=== PATIENT | female | born 1960 | race Caucasian/White ===

== ENCOUNTER → 2017-11-11 09:34 | Outpatient (CLI) | payer BC, SELFPAY ==
--- NOTE | 2017-11-11 09:42 | XR_ITS ---
XR shoulder LT min 2V HISTORY: ITS.REASON: CHRONIC LT SHOULDER PAIN ORDERING PHYSICIAN: Mar Ochoa PATIENT AGE: 57 years Comparison: None FINDINGS: No fracture or dislocation. No lytic or blastic change. There is normal mineralization. The joint spaces are well-preserved. No significant degenerative/arthritic changes. No erosive changes evident. IMPRESSION: Negative, no acute finding
== END ==
PROVIDERS: PCP Nurse Practitioner; Visit Provider Nurse Practitioner
DX: G89.29 Other chronic pain (principal); M25.512 Pain in left shoulder
CPT/HCPCS: 73030

== ENCOUNTER → 2020-07-09 13:31 | Outpatient (CLI) | payer BC, SELFPAY ==
[2020-07-10 09:57] LABS: Covid-19 Nasal PCR Sendout P&C NEGATIVE
== END ==
PROVIDERS: PCP Nurse Practitioner; Visit Provider Nurse Practitioner
DX: Z20.822 Contact with and (suspected) exposure to COVID-19 (principal)
CPT/HCPCS: U0004

== ENCOUNTER 2020-11-26 12:37 | Emergency (ER) | payer BC, SELFPAY ==
[2020-11-26 12:41] VITALS: BP 153/89; PULSE 94; RESP 18; TEMP 36.8; O2SAT 98; BMI 20.5
--- NOTE | 2020-11-26 13:07 | HMH.EDUTC ---
[facility] [place] Disposition Clinical Impression: Tick bite Qualifiers: Encounter type: initial encounter Qualified Code(s): W57.XXXA - Bitten or stung by nonvenomous insect and other nonvenomous arthropods, initial encounter Disposition: Home, Self-Care Condition on Discharge: Good Instructions: How to Remove a Tick, Protect Yourself from Tickborne Illnesses, Doxycycline Additional Instructions: Take medication as prescribed Follow up with your Family Doctor for monitoring and further evaluation Return if needed Straight to ER if any life threatening symptoms Prescriptions: Doxycycline Hyclate [Doxycycline 100mg Capsule] 100 mg PO Q12 14 Days #28 cap Transmission Status: Pending to [facility] Referrals: Ramesh Warren MD [Primary Care Provider] - As needed Time of Disposition: 13:18 Medical Decision Making - Chris Inquiry Pt receiving controlled substance: No Chris was queried for this patient: No Vital Signs: 11/26/20 12:41 Temperature 98.2 F Temperature Source Oral Pulse Rate [Right] 94 H Respiratory Rate 18 Blood Pressure [Right Arm] 153/89 H Blood Pressure Mean [Right Arm] 110 Blood Pressure Source [Right Arm] Automatic Cuff Blood Pressure Position [Right Arm] Sitting 02 Sat by Pulse Oximetry 98 Oxygen Delivery Method Room Air [facility] [place] HPI - General Stated complaint: tick bite,redness on head Time Seen by Provider: 11/26/20 13:07 Mode of Arrival: Ambulatory Source of Information: Patient Limitations: No Limitations Description of Symptoms (Recalled from Triage Doc. by RN): pt was bit by a tick on the back of her head. she is now c/o pain and swollen lymph nodes in the back of her head since thursday. HEENT Symptoms (Recalled from RN notes): No Resp Symptoms (Recalled from RN notes): No Skin Symptoms (Recalled from RN notes): Yes (tick bite on the back of her head.) MS Symptoms (Recalled from RN notes): No Functional Status (Recalled from RN notes): na - History of Present Illness Provider Complaint: Patient state that she was bitten by a tick and they removed it around State that she noticed she was having some swelling to the bite area and her lymph nodes started swelling State that they looked at her head this morning and looked like she had a rash around the bite and still having lymph node swelling so she came in to get it checked - Related Data Home Medications Medication Instructions Recorded Confirmed Atorvastatin Calcium [Atorvastatin 40 mg PO HS 01/16/18 01/16/18 40mg Tab] Lansoprazole 30 mg PO DAILY 01/16/18 01/16/18 fluorouraciL [Efudex 5% cream 40gm 40 gm TP DAILY 01/16/18 01/16/18 tube] Previous Rx's Medication Instructions Recorded Gentamicin Sulfate [Garamycin 0.3% 1 - 2 drops EYE-LEFT Q4H #1 drops 01/16/18 opth kym 5mL] Doxycycline Hyclate [Doxycycline 100 mg PO Q12 14 Days #28 cap 11/26/20 100mg Capsule] Allergies Allergy/AdvReac Type Severity Reaction Status Date / Time Sulfa (Sulfonamide Allergy Verified 11/26/20 12:59 Antibiotics) - Worker's Comp Is this a Worker's Comp case?: No [facility] History - Hepatitis A Screen Drug use history?: No High risk sexual behaviors?: No History of sexually transmitted infection?: No Currently employed?: No Childcare worker?: No Do you have indoor plumbing?: Yes Do you have electricity?: Yes Attestation statement:: This patient has been screened for Hepatitis A risk factors. I have reviewed the patient's past medical history: Yes - Social History Alcohol Intake: never ROS Obtained: Yes All systems reviewed & no additional complaints, Yes Systems reviewed as appropriate & no additional complaints - Constitutional Constitutional: Reports system reviewed and no additional complaints, except as docu, Denies chills, Denies fever(s) - Cardiovascular Cardiovascular: Reports system reviewed and no additional complaints, except as docu - Respiratory Respiratory: Reports system reviewed
[2020-11-26 13:26] VITALS: BP 153/89; PULSE 94; RESP 16; TEMP 36.8
== END 2020-11-26 13:28 | disposition home or self-care (01) ==
PROVIDERS: Emergency Provider Nurse Practitioner; PCP Family Medicine
DX: S00.06XA Insect bite (nonvenomous) of scalp, initial encounter (principal); W57.XXXA Bitten or stung by nonvenomous insect and other nonvenomous arthropods, initial encounter; Y92.019 Unspecified place in single-family (private) house as the place of occurrence of the external cause
CPT/HCPCS: 99202; G0463

== ENCOUNTER → 2020-11-28 10:04 | Outpatient (CLI) | payer BC, SELFPAY ==
[2020-11-28 10:32] LABS: Basophils # 0.1 K/mm3 (0-0.2); Eosinophils # 0.2 K/mm3 (0.0-0.4); Eosinophils % 3.2 % (0.1-12.0); Hematocrit 40.2 % (37.0-47.0); Hemoglobin 13.4 g/dL (12.2-16.2); Lymphocytes # 2.4 K/mm3 (0.7-4.5); Lymphocytes % 41.3 % (10-50); Mean Corpuscular HGB Conc 33.2 g/dL (31.8-35.4); Mean Corpuscular Hemoglobin 29.5 pg (27.0-31.2); Mean Corpuscular Volume 88.9 fl (81-99); Mean Platelet Volume 7.5 fl (7.4-10.4); Monocytes # 0.3 K/mm3 (0.1-1.0); Monocytes % 5.5 % (1.7-9.3); Neutrophils # 2.9 K/mm3 (1.8-7.8); Neutrophils % 48.9 % (37.0-80.0); Platelet Count 293 K/mm3 (142-424); Red Blood Count 4.52 M/mm3 (4.20-5.40); Red Cell Distribution Width 12.7 % (11.5-17.5); White Blood Count 5.9 K/mm3 (4.8-10.8)
[2020-11-28 11:17] LABS: Chol/HDL Ratio 2.5 (1-3.5); Cholesterol 268 mg/dl (140-200); HDL Cholesterol 108 mg/dl (40-60); Triglycerides 122 mg/dl (30-150); VLDL Cholesterol 24 mg/dL (0-40)
[2020-11-28 11:28] LABS: Direct LDL Cholesterol 111.14 mg/dL (100-129)
== END ==
PROVIDERS: Visit Provider Nurse Practitioner Family
DX: E78.2 Mixed hyperlipidemia (principal); S00.06XD Insect bite (nonvenomous) of scalp, subsequent encounter; W57.XXXD Bitten or stung by nonvenomous insect and other nonvenomous arthropods, subsequent encounter
CPT/HCPCS: 36415; 80061; 85025; 86618

== ENCOUNTER → 2021-06-07 10:25 | Outpatient (CLI) | payer OTHER, SELFPAY | PROVIDERS: PCP Nurse Practitioner Family; Visit Provider Nurse Practitioner | DX: Z20.822 Contact with and (suspected) exposure to COVID-19 (principal) | CPT/HCPCS: C9803; U0003; U0005 ==

== ENCOUNTER → 2021-07-19 10:03 | Outpatient (CLI) | payer BC, SELFPAY ==
[2021-07-20 15:16] LABS: Covid-19 Nasal PCR Sendout Lex POSITIVE
== END ==
PROVIDERS: Visit Provider Nurse Practitioner
DX: U07.1 COVID-19 (principal)
CPT/HCPCS: C9803; U0004; U0005

== ENCOUNTER → 2021-08-19 11:47 | Outpatient (CLI) | payer BC, SELFPAY ==
--- NOTE | 2021-08-19 11:54 | XR_ITS ---
FINAL REPORT CLINICAL HISTORY: CERVICALGIA; chronic neck pain FINDINGS: CERVICAL SPINE Five views were obtained. There is no acute fracture. There is no acute malalignment. There are mild degenerative changes at C5-6 and C6-7. There is mild leftward curvature. There is mild right C3-4 neural foraminal narrowing. There is no soft tissue abnormality. IMPRESSION: No acute bony abnormality. Degenerative changes as above. Reviewed, Interpreted and Dictated by Armaan Villa III, MD Transcribed by JESICA Mauro Authenticated by Armaan Villa III, MD on 08/19/2021 01:13:21 PM [facility]
== END ==
PROVIDERS: PCP Nurse Practitioner Family; Visit Provider Nurse Practitioner Family
DX: M54.2 Cervicalgia (principal)
CPT/HCPCS: 72050

== ENCOUNTER → 2021-11-27 09:36 | Outpatient (CLI) | payer BC, SELFPAY ==
[2021-11-27 10:20] LABS: Basophils # 0.1 K/mm3 (0-0.2); Basophils % 1.8 % (0.1-2.0); Eosinophils # 0.1 K/mm3 (0.0-0.4); Eosinophils % 1.8 % (0.1-12.0); Hematocrit 39.6 % (37.0-47.0); Hemoglobin 13.3 g/dL (12.2-16.2); Lymphocytes # 2.1 K/mm3 (0.7-4.5); Lymphocytes % 36.9 % (10-50); Mean Corpuscular HGB Conc 33.5 g/dL (31.8-35.4); Mean Corpuscular Hemoglobin 30.8 pg (27.0-31.2); Mean Platelet Volume 8.3 fl (7.4-10.4); Monocytes # 0.4 K/mm3 (0.1-1.0); Monocytes % 6.9 % (1.7-9.3); Neutrophils % 52.6 % (37.0-80.0); Platelet Count 265 K/mm3 (142-424); White Blood Count 5.8 K/mm3 (4.8-10.8)
[2021-11-27 10:21] LABS: Chloride 101 mmol/L (98-107); Potassium 4.7 mmoL/L (3.5-5.1); Sodium 137 mmol/L (136-145)
[2021-11-27 10:23] LABS: Alanine Aminotransferase 17 U/L (12-78); Aspartate Amino Transferase 29 U/L (14-36); Blood Urea Nitrogen 12 mg/dl (7-17); Estimated Glomerular Filt Rate 63 ml/min (>60); GFR (African American) 77 ML/MIN (>60)
[2021-11-27 10:24] LABS: Albumin Level 4.4 g/dl (3.5-5.0); Albumin/Globulin Ratio 1.8 (1.1-1.8); Alkaline Phosphatase 87 U/L (38-126); Anion Gap 9.7 mEq/L (5-15); Bilirubin,Total 0.3 mg/dl (0.2-1.3); Calcium 9.9 mg/dl (8.4-10.2); Carbon Dioxide 31 mmol/L (22.0-30.0); Globulin 2.5 g/dL (1.3-3.2); Glucose 110 mg/dl (74-100); Total Protein,Serum 6.9 g/dl (6.3-8.2)
[2021-11-27 10:29] LABS: C-Reactive Protein 0.9 mg/L (0-4)
== END ==
PROVIDERS: PCP Nurse Practitioner Family; Visit Provider Colon & Rectal Surgery
DX: R19.7 Diarrhea, unspecified (principal)
CPT/HCPCS: 36415; 80053; 85025; 86140

== ENCOUNTER → 2022-08-07 08:58 | Outpatient (CLI) | payer BC, SELFPAY ==
--- NOTE | 2022-08-07 09:04 | XR_ITS ---
FINAL REPORT CLINICAL HISTORY: PAIN IN THORACIC SPINE FINDINGS: AP, lateral, and swimmer's views of the thoracic spine were obtained. There is no prior exam for comparison. There is no acute fracture or malalignment. There is multilevel degenerative disc disease most pronounced in the midthoracic spine. Paraspinal soft tissues are within normal limits. IMPRESSION: Degenerative disease with no acute osseous abnormality of the thoracic spine. Reviewed, Interpreted and Dictated by Camila Wesley MD Transcribed by Ayanna Carson Authenticated and [facility]
== END ==
PROVIDERS: PCP Nurse Practitioner Family; Visit Provider Nurse Practitioner Family
DX: M54.6 Pain in thoracic spine (principal)
CPT/HCPCS: 72072

== ENCOUNTER 2022-09-12 09:00 | Outpatient (RCR) | payer BC, SELFPAY | END 2022-09-12 09:05 | disposition home or self-care (01) | LOC: PT 09:00 | PROVIDERS: PCP Nurse Practitioner Family; Visit Provider Nurse Practitioner Family | DX: M54.2 Cervicalgia (principal); M54.6 Pain in thoracic spine | CPT/HCPCS: 97010; 97012; 97014; 97110; 97112; 97140; 97163; 97164; 97530; G0283 ==

== ENCOUNTER 2023-07-22 15:27 | Outpatient (CLI) | payer BC, SELFPAY ==
[2023-07-22 15:31] LABS: Alanine Aminotransferase 22 U/L (12-78); Albumin Level 4.7 g/dl (3.5-5.0); Alkaline Phosphatase 79 U/L (38-126); Anion Gap 11.4 mEq/L (5-15); Aspartate Amino Transferase 31 U/L (14-36); Bilirubin,Total 0.4 mg/dl (0.2-1.3); Blood Urea Nitrogen 12 mg/dl (7-17); Carbon Dioxide 29 mmol/L (22.0-30.0); Chloride 99 mmol/L (98-107); Chol/HDL Ratio 2.4 (1-3.5); Cholesterol 238 mg/dl (140-200); Estimated Glomerular Filt Rate 63 ml/min (>60); GFR (African American) 77 ML/MIN (>60); Globulin 2.3 g/dL (1.3-3.2); Glucose 71 mg/dl (74-100); HDL Cholesterol 98 mg/dl (40-60); Potassium 5.4 mmoL/L (3.5-5.1); Sodium 134 mmol/L (136-145); Triglycerides 93 mg/dl (30-150); VLDL Cholesterol 19 mg/dL (0-40)
[2023-07-22 15:42] LABS: Direct LDL Cholesterol 98.22 mg/dL (100-129)
== END 2023-07-22 23:59 ==
LOC: LAB.DROPOF 15:27
PROVIDERS: PCP Nurse Practitioner Family; Visit Provider Nurse Practitioner Family
DX: E78.5 Hyperlipidemia, unspecified (principal)
CPT/HCPCS: 80053; 80061

== ENCOUNTER 2023-09-09 15:14 | Emergency (ER) | payer BC, SELFPAY ==
[2023-09-09 15:45] VITALS: BP 121/64; PULSE 80; RESP 16; TEMP 37; O2SAT 96; BMI 23.0
--- NOTE | 2023-09-09 15:51 | EXP.UTC ---
Discharge Plan Disposition Patient Disposition: Home, Self-Care Condition: Good Prescriptions Prescriptions: New methylprednisolone [Medrol (Jac)] 4 mg tablets,dose pack See Rx Instructions .Route .COMPLEX 6 Days Qty: 21 0RF Rx Instructions: taper pack; amoxicillin-pot clavulanate 875-125 mg Tablet 1 tab PO Q12H Qty: 20 0RF No Action multivitamin Tablet 1 tab PO DAILY [id number]-epa-fish oil-coQ10 348-500-100 mg capsule See Rx Instructions PO .COMPLEX Rx Instructions: 1000 mg once daily orally; simvastatin 20 mg tablet 20 mg PO HS 90 Days Qty: 90 3RF lansoprazole 30 MG capsule,delayed release(DR/EC) 30 mg PO DAILY Referrals Follow up/Referrals: Amrita Jose APRN [Primary Care Provider] - See instructions Activity Restrictions/Add. Instructions Additional Instructions/Restrictions: *Monitor Temp, Over the counter Motrin or Tylenol as directed/as needed Tylenol every 4 hours and Motrin every 6 hours (as long as your family doctor has told you that you can take it) for fever or pain. and straight to ER if unable to lower temp less than 101.0 after medication given *Warm salt water gargles may help to soothe the throat *Throat Lozenges? *Warm fluids like tea with honey may help to soothe the throat? *Sleep elevated *Humidifier/Vaporizer Take medication as prescribed Follow up IMMEDIATELY for new or worsening symptoms or no Noticeable improvement over the next 48-72 hours. 911 for difficulty breathing or swallowing Clinical Impressions Clinical Impression: Sinusitis Instructions Patient Instructions: DI for Sinusitis, Sinusitis Discharge ED Provider: Meghana Huff [facility] [place] HPI General Stated complaint: sore throat, cough, fever Mode of Arrival: Ambulatory Source of Information: Patient Limitations: No Limitations Time Seen by Provider: 09/09/23 15:51 Description of Symptoms (Recalled from Triage Doc. by RN): PATIENT C/O SORE THROAT, COUGH AND CONGESTION X 17 DAYS HEENT Symptoms (Recalled from RN notes): Yes Resp Symptoms (Recalled from RN notes): Yes Skin Symptoms (Recalled from RN notes): No MS Symptoms (Recalled from RN notes): No Functional Status (Recalled from RN notes): WNL History of Present Illness Provider Complaint: Patient states that she has been sick for 2wks States that she has been having sinus pain and pressure, pain in her ears, sore throat and pressure behind her eyes States that she thought it was a virus but it hasnt got any better Related Data Home Medications Medication Instructions Recorded Confirmed lansoprazole 30 mg capsule,delayed 30 mg PO DAILY GERD 01/16/18 09/09/23 release multivitamin 1 tab PO DAILY 07/22/23 09/09/23 omega-3 348 mg-dha 100 mg-epa 230 See Rx Instructions PO .COMPLEX 07/22/23 09/09/23 mg-fish 500 mg-coQ10 100 mg capsule Previous Rx's Medication Instructions Recorded simvastatin 20 mg tablet 20 mg PO HS 90 days #90 tabs 07/22/23 amoxicillin 875 mg-potassium 1 tab PO Q12H #20 tabs 09/09/23 clavulanate 125 mg tablet methylprednisolone 4 mg tablets in See Rx Instructions .Route 09/09/23 a dose pack (Medrol (Jac)) .COMPLEX 6 days #21 tabs Allergies Allergy/AdvReac Type Severity Reaction Status Date / Time Sulfa (Sulfonamide Allergy Verified 07/22/23 08:39 Antibiotics) Worker's Comp Is this a Worker's Comp case?: No [facility] Disclaimer: The information contained in this section may have been updated after the patient was seen, as this information can be updated by other users. Medical History (Updated 09/09/23 @ 16:05 by Meghana Huff APRN) Tear of right acetabular labrum Hip bursitis Broken arm Basal cell carcinoma of skin Hyperlipidemia Colon cancer Surgical History (Updated 07/22/23 @ 09:02 by Ale Peters CMA) H/O arthroscopy of hip History of tubal ligation Family History (Updated 07/22/23 @ 08:50 by Ale Peters CMA) Family/Other Cancer Social History (Updated 07/29/23 @ 22:15 by Amrita Jose APRN) Smoking Status: Smoker, status unknown alcohol intake: never current occupational status: retired Travel in the last 8 weeks: None ROS Obtained: Yes All systems reviewed & no additional complaints except as documented and Yes Systems reviewed as appropriate & no additional complaints except as documented Constitutional Constitutional: Reports system reviewed and no additional complaints, except as documented and Reports as per HPI ENT Ears, Nose, Mouth, and Throat: Reports system reviewed and no additional complaints, except as documented, Reports as per HPI, Reports otalgia, Reports sinus pain, Reports sinus pressure and Reports sore throat Cardiovascular Cardiovascular: Reports system reviewed and no additional complaints, except as documented and Reports as per HPI Respiratory Respiratory: Reports system reviewed and no additional complaints, except as documented and Reports as per HPI Gastrointestinal Gastrointestingal: Reports system reviewed and no additional complaints, except as documented and as per HPI Genitourinary Female Genitourinary: Reports system reviewed and no additional complaints, except as documented and Reports as per HPI Physical Exam General General appearance: alert and in no apparent distress ENT ENT exam: Present mucous membranes moist Expanded ENT Exam Nose exam: Present sinus tenderness Throat exam: Present other (Pharyngeal erythema noted with PND) Respiratory Respiratory exam: Present normal lung sounds bilaterally, respiratory distress and wheezes Cardiovascular Cardiovascular exam: Present regular rate, normal rhythm and normal heart sounds Neurological Exam Neurological exam: Present alert, oriented X3 and normal gait Medical Decision Making Chris Inquiry Pt receiving controlled substance: No Chris was queried for this patient: No Vital Signs: 09/09/23 15:45 Temperature 98.6 F Temperature Source Oral Pulse Rate [Right Brachial] 80 Respiratory Rate 16 Blood Pressure [Right Arm] 121/64 Blood Pressure Mean [Right Arm] 83 Blood Pressure Source [Right Arm] Automatic Cuff Blood Pressure Position [Right Arm] Sitting 02 Sat by Pulse Oximetry 96 Oxygen Delivery Method Room Air
[2023-09-09 16:05] VITALS: BP 121/64; PULSE 80; RESP 16; TEMP 37; O2SAT 96
== END 2023-09-09 16:08 | disposition home or self-care (01) ==
PROVIDERS: Emergency Provider Nurse Practitioner; PCP Nurse Practitioner Family
DX: J01.90 Acute sinusitis, unspecified (principal); J02.9 Acute pharyngitis, unspecified; R05.9 Cough, unspecified; R09.81 Nasal congestion; E78.5 Hyperlipidemia, unspecified; Z85.038 Personal history of other malignant neoplasm of large intestine
CPT/HCPCS: 99212; 99214; G0463

== ENCOUNTER 2024-03-21 16:29 | Outpatient (CLI) | payer BC, SELFPAY ==
--- NOTE | 2024-03-21 16:33 | XR_ITS ---
PROCEDURE INFORMATION: Exam: XR Left Hip Exam date and time: 03/21/2024 4:34 PM Age: 63 years old Clinical indication: Hip pain; Left hip; Additional info: Left hip pain TECHNIQUE: Imaging protocol: Radiologic exam of the left hip. Views: 2 or 3 views hip with pelvis when performed. COMPARISON: No relevant prior studies available. FINDINGS: Bones/joints: There is normal anatomic alignment of each hip. The iliac bones and pubic rami are intact. The sacrum is intact. There is mild bony sclerosis of the sacroiliac joints suggesting sacroiliitis. Soft tissues: Unremarkable. IMPRESSION: 1. Unremarkable left hip. 2. Bilateral sacroiliitis.
== END 2024-03-21 23:59 | disposition home or self-care (01) ==
LOC: RAD 16:30
PROVIDERS: PCP Nurse Practitioner Family; Visit Provider Nurse Practitioner Family
DX: M25.552 Pain in left hip (principal)
CPT/HCPCS: 73502

== ENCOUNTER 2024-05-13 08:00 | Outpatient (RCR) | payer BC, SELFPAY | END 2024-05-13 23:59 | disposition home or self-care (01) | LOC: PT 08:00 | PROVIDERS: PCP Nurse Practitioner Family; Visit Provider Nurse Practitioner Family | DX: M25.552 Pain in left hip (principal); S76.012A Strain of muscle, fascia and tendon of left hip, initial encounter | CPT/HCPCS: 97014; 97035; 97110; 97163; 97530; G0283 ==

== ENCOUNTER 2024-12-26 11:17 | Outpatient (RCR) | payer MEDICARE, OTHER, SELFPAY | END 2024-12-26 23:59 | disposition home or self-care (01) | LOC: PT 11:17 | PROVIDERS: Visit Provider Nurse Practitioner Family | DX: M25.362 Other instability, left knee (principal); S89.92XA Unspecified injury of left lower leg, initial encounter | CPT/HCPCS: 97760 ==

== ENCOUNTER 2024-12-26 11:38 | Outpatient (CLI) | payer MEDICARE, OTHER, SELFPAY ==
--- NOTE | 2024-12-26 11:41 | XR_ITS ---
FINAL REPORT CLINICAL HISTORY: left knee injury, instability twisted knee michael, heard a pop FINDINGS: LEFT KNEE: 3 views of the left knee obtained. There is no acute fracture or dislocation. The joint spaces are intact.. There is no soft tissue abnormality. IMPRESSION: No acute bony abnormality. Reviewed, Interpreted and Dictated by Ángel Pittman MD Transcribed by Sally Barnes Authenticated and . [facility]
--- OUTSIDE RECORDS SUMMARY | 2024-12-26 11:43 | XMS_ITS | Clinical Summary ---
Author Organization Healthcare Address [address] [place] [address] Care Team Providers Care Shake Splitter Name Role Phone Lilian Ochoa CORRECTIONS SPECIALIST Primary Care Provider [phone] Social History Tobacco Use Types Packs/Day Years Used Date Smoking Tobacco: Never Comments Unknown Sex and Gender Information Value Date Recorded Sex Assigned at Not on file Legal Sex Female 6:56 PM EDT Gender Identity Not on file Sexual Orientation Not on file Last Filed Vital Signs Vital Sign Reading Time Taken Comments Blood Pressure 146/85 11/09/2018 8:41 AM EDT Pulse 63 11/09/2018 8:41 AM EDT Temperature - - Respiratory Rate - - Oxygen Saturation - - Inhaled Oxygen Concentration - - Weight 54.3 kg (119 lb 11.4 oz) 11/09/2018 8:41 AM EDT Height 162.6 cm (5' 4 ) 11/09/2018 8:41 AM EDT Body Mass Index 20.55 11/09/2018 8:41 AM EDT Plan of Treatment Not on file Care Teams Shake Splitter Relationship Specialty Start Date End Date Lilian Ochoa, CORRECTIONS SPECIALIST [address] [place] [id number] PCP - General 11/02/20
--- OUTSIDE RECORDS SUMMARY | 2024-12-26 11:43 | XMS_ITS | Referral Summary ---
Author Organization [employer] ([place], [place], [place], [place]) Address [address] [place] [address] Care Team Providers Care Rod Cup Filler Name Role Phone Amrita Jose APRN Primary Care Provider Allergies No known active allergies Social History Tobacco Use Types Packs/Day Years Used Date Smoking Tobacco: Never Assessed Food Insecurity Answer Date Recorded Food run out past 12 months Not on file 06/23 Food did not last past 12 months Not on file 07/11/2023 Employment Answer Date Recorded Help finding and keeping a job Not on file 0 07/11/2023 Family and Community Support Answer Alexander e Recorded Help with Day to Day Activities Not on file 07/11/2023 Feeling Lonely or Isolated Not on file 07/11 Educational Attainment Answer Date Jv rded Speak language other than Malaysian at home Not on file 07/11/2023 Want help with school or training Not on file 07/11/2023 Substance Use Answer Date Recorded Used prescription meds for non-medical reasons N ot on file 07/11/2023 Used illegal drugs past 12 months Not on file 07/11/2023 Comments Unknown Sex and Gender Information Value Date Recorded Sex Assigned at Not on file Legal Sex Female 10:05 AM CDT Gender Identity Not on file Sexual Orientation Not on file Plan of Treatment Not on file Insurance BLUE CROSS/BLUE SHIELD Care Teams Rod Cup Filler Relationship Specialty Start Date End Date Amrita Jose, BUSHEL GIRL [address] [id number] PCP - General Nurse Practitioner 11/12/22
--- OUTSIDE RECORDS SUMMARY | 2024-12-26 11:43 | XMS_ITS | Clinical Summary ---
Author Organization [employer] ([place], [place], [place], [place]) Address [address] [place] [address] Care Team Providers Care Door And Arrival Attendant Name Role Phone JoseAmrita lindsay EMBER Primary Care Provider Allergies No known active [...] Date Jv rded Speak language other than Indonesian at home Not on file 07/11/2023 Want [...] Orientation Not on file Plan of Treatment Health Maintenance Due Date Last Done Comments CT Colonography 1959 Colonoscopy 1959 Colorectal Cancer Screening 1959 DXA SCAN 1959 FOBT/FIT 1959 Fit-DNA (Cologuard) 1959 Sigmoidoscopy 1959 Depression Screening (12+) 1971 Tobacco Cessation Counseling and Screening (12+) 07/27 HIV Screening 1974 Hepatitis C Screening 1977 Pap Smear 1980 Breast Cancer Screening 1999 Lipid Panel 2004 Pneumococcal 50+ years (1 of 1 - PCV) 2009 Shingles Vaccine (Zoster) (1 of 2) 2009 COVID-19 VACCINE (1 - 2023- season) 2024 Falls Risk Screening 06/22/2024 Influenza Vaccine (#1) 2025 03/31/2019 DTAP/TDAP/TD VACCINES (2 - Td or Tdap) 03/31/2029 Respiratory Syncytial Virus (RSV) Adult or (1 - 1-dose 75+ series) 2034 Insurance BLUE CROSS/BLUE SHIELD Care Teams Door And Arrival Attendant Relationship Specialty Start Date End Date Amrita Jose APRN [address] [id number] PCP - General Nurse Practitioner 11/12/22
== END 2024-12-26 23:59 | disposition home or self-care (01) ==
LOC: RAD 11:39
PROVIDERS: PCP Nurse Practitioner Family; Visit Provider Nurse Practitioner Family
DX: S89.92XA Unspecified injury of left lower leg, initial encounter (principal); M25.362 Other instability, left knee
CPT/HCPCS: 73564

== ENCOUNTER 2025-01-16 08:25 | Outpatient (CLI) | payer MEDICARE, OTHER, SELFPAY ==
--- OUTSIDE RECORDS SUMMARY | 2025-01-17 12:39 | XMS_ITS | Continuity of Care Document ---
Author Organization [facility], ENDOCRINOLOGY SB Address [address] [place] [address] Care Team Providers Care Application Integration Engineer Name Role Phone VIGNESH JOY Primary Care Provider KEAGAN MACDONALD Referring Provider [phone] Assessment No assessment recorded. 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 Referral None recorded. Procedures None recorded. Surgeries None recorded. Imaging None recorded. Medication Orders Evenity 210 mg/2.34 mL (105 mg/1.17 mL x 2) subcutane ous syringe 2024 025 [id number] 8 [facility], [address], [address], 01/02/2025 14:39:56 Patient TargetsNo targets recorded. Patient InstructionsNo instructions recorded. Reason for Referral None Reported. Results Created Date Observation Date Name Description Value Unit Range Abnormal Flag Note LastModifiedBy Organization Detail LastModifiedTime 01/03/2001/02/2025 MRI, knee, w/o contr ast [facility] [address] [facility] [place], [place] [phone] Patien t Name: MICHA Hernandez t : [birth year] 59 Patien t 0 Orderi ng Provid er: TODD Zuñiga EXAM DATE: 2024 EXAM: MR LT KNEE WITHOU T CONTRA ST HISTOR Y: 64-yea r-old female with left knee pain. COMPAR TOMY: None. FINDIN GS: The ACL is normal in appear ance. The PCL is also normal in appear ance. The latera l collat eral ligame nt comple x is intact . The medial collat eral ligame nt comple x appear s normal . The zoie ceps tendon appear s normal . The patell ar tendon is normal in appear ance. There is a horizo ntal tear of the hotel reservation agent ior horn and midpor tion of the medial menisc us extend ing to the tibial surfac e and free edge of the menisc us. The latera l menisc us is normal in appear ance. There is mild thinni ng of the articu lar cartil age in the femoro tibial compar tments . There is minima l margin al osteop hytic spurri ng. There is a small joint effusi on. The muscle s about the knee are normal in appear ance. There is a modera te sized poplit eal cyst. IMPRES JEAN: 1. There is a large horizo ntal tear of the hotel reservation agent ior horn and midpor tion of the medial menisc us in the right knee. 2. There are mild degene rative change s, a small joint effusi on and a modera te sized poplit eal cyst. Interp reted By: Trixie sosa MD Electr onical ly Signed By: Trixie sosa MD on 025 9:04 AM [email or web address] [facility] [address], [address], 01/02/2025 10:19:41 01/05/20 25 01/02/2025 MRI, knee, w/o contr ast No observ ation record ed. [email or web address] [facility] [address] [place], [address], 01/04/2025 16:36:13 Result Notes Documentation Provider Name and Address Organization Details Recorded Time Mri, Knee, W/o Contrast : [id number] [place] [address] Patient Name: MICHA MOREIRA Patient : 1960 Patient Ordering Provider: TODD MCCLURE EXAM DATE: 01/02/2025 EXAM: MR LT KNEE WITHOUT CONTRAST HISTORY: 64-year-old female with left knee pain. COMPARISON: None. FINDINGS: The ACL is normal in appearance. The PCL is also normal in appearance. The lateral collateral ligament complex is intact. The medial collateral ligament complex appears normal. The quadriceps tendon appears normal. The patellar tendon is normal in appearance. There is a horizontal tear of the posterior horn and midportion of the medial meniscus extending to the tibial surface and free edge of the meniscus. The lateral meniscus is normal in appearance. There is mild thinning of the articular cartilage in the femorotibial compartments. There is minimal marginal osteophytic spurring. There is a small joint effusion. The muscles about the knee are normal in appearance. There is a moderate sized popliteal cyst. IMPRESSION: 1. There is a large horizontal tear of the posterior horn and midportion of the medial meniscus in the right knee. 2. There are mild degenerative changes, a small joint effusion and a moderate sized popliteal cyst. Interpreted By: Tomi Redding MD Sobia sarkar, [facility] 01/02/2025 10:19:41 Problems Name Problem SNOMED Code Status Onset Date Resolution Date Notes Provider Name and Address Organization Details Recorded Time Malignant tumor of colon 238075032 Active 2021 Nguyen Busch [facility], [facility] 3 14:38:43 History of dysplasia of cervix 344313653 Active 2023 KEAGAN PURI, EMBER-RADHA [address] [place], [address], [facility] 4 20:03:21 Postmenopausal osteoporosis 484273321 Active 2024 SCOTT DENIS, SERVICE PORTER [address] [place], [address], [facility] 14:39:56 Problem Notes None recorded. Procedures Surgical History Date Name Laterality Status Provider Name and Address Organization Details Recorded Time 08/03/19 25 DXA Osteoporosis completed SONAM JIMÉNEZ MD [address] [place], [address], [facility] 08/03/2024 12:54:41 05/12/20 24 Date of Last Pap Smear completed Neelam Toth [facility] 05/30/2024 10:08:46 09/12/19 23 Pap Smear collection completed ZOILA CURRIE MD [address] [place], [address], [facility] 09/11/2022 15:17:25 02/01/20 22 open reduction of volvulus of sigmoid colon completed Nguyen Busch [facility] 09/11/2022 14:39:21 10/09/19 22 Most Recent Mammogram completed Lashaun Lim [facility] 09/08/2022 12:07:05 09/04/19 22 Pap Smear collection completed ZOILA CURRIE MD [facility] [place], [address], [facility] 09/03/2021 09:47:07 08/29/19 21 Pap Smear collection completed ZOILA CURRIE MD [address] [place], [address], [facility] 08/28/2020 10:23:21 04/09/20 20 Injection Joint/Bursa, Interm completed JACKIE GALAVIZ MD [address] [place], [address], [facility] 05/05/2020 16:30:31 01/02/20 20 repair of rotator cuff by suture completed Delfina Medel [facility] 08/28/2020 10:05:24 08/22/19 20 Date of Last Colonoscopy completed Lashaun Lim [facility] 08/21/2021 11:19:25 05/18/20 19 Cystoscopy completed Gladys Crawford [facility] 06/01/2019 16:17:08 06/22/19 04 Cholecystectomy completed Gladys Crawford [facility] 03/02/2019 15:33:13 Imaging Results None recorded. Procedure Notes None recorded. Medical Equipment None Reported. Allergies Allergen ID Allergen Name Allergen Category Reaction Reaction Severity Criticality Documentation Date Start Date Code Code System Note Provider Name and Address Organization Details Recorded Time 955496 Substance with sulfonami de structure and antibacte rial mechanism of action (substanc e) medicatio n rash mild Not available 03/02/2019 16571 8003 SNOMED Gladys Crawford [facility] 9 15:31:29 453730 doxycycli ne Not available headache severe Not available 06/29/2019 3640 RxNorm imme nse heada aaron Delfina Gianfranco [facility] 1 09:59:48 Medications Name Sig Start Date Stop Date Status Note LastModified by Organization Details LastModified Time atorvasta tin 40 mg tablet Take 1 tablet every day by oral route. 08/28 completed Not Available Not Available Not Available Mobic 7.5 mg tablet Take 1 tablet every day by oral route for 7 days. 02/09 completed Not Available Not Available Not Available Percocet 10 mg-325 mg tablet Take 1 tablet every 4-6 hours by oral route as needed for 5 days. 02/09 completed Not Available Not Available Not Available doxycycli ne monohydra te 100 mg capsule Take 1 capsule twice a day by oral route. 06/29 completed Not Available Not Available Not Available lansopraz ole 30 mg capsule,d elayed release Take 1 capsule every day by oral route. active Not Available Not Available No t Available diclofena c sodium 75 mg tablet,de layed release Take 1 tablet twice a day by oral route. 06/29 completed Not Available Not Available Not Available diclofena c sodium 50 mg tablet,de layed release Take 1 tablet twice a day by oral route for 30 days. 09/11 completed Not Available Not Available Not Available gabapenti n 100 mg capsule Take 1 capsule every day by oral route at bedtime for 7 days. 02/09 completed Not Available Not Available Not Available estradiol 0.01% (0.1 mg/gram) vaginal cream Insert 1 gram vaginall y 3 nights weekly 2023 active Not Available Not Available Not Avai lable meloxicam once daily active Not Available Not Available No t Available Imodium A-D as needed 09/11 completed Not Available Not Available Not Available Fish Oil 09/03 completed Not Available Not Available Not Available Vitamin D active Not Available Not Lesa ilable Not Available cyclobenz aprine once daily active Not Available Not Available No t Available flaxseed 09/03 completed Not Available Not Available Not Available multivita min 09/11 completed Not Available Not Available Not Available Probiotic 09/11 completed Not Available Not Available Not Available Evenity 210 mg/2.34 mL (105 mg/1.17 mL x 2) subcutane ous syringe Inject 2.34 mL by subcutan eous route. 2024 active B&B injectio n RLQ, LLQ abdomen Not Available Not Available Not Available Vitals None Recorded Social History Question Answer Notes LastModified by Organizat ion Details LastModified Time Tobacco Smoking Status Never Smoker Gladys Crawford [facility] 03/02/2019 15:32:51 How Much Tobacco Do You Chew? None Information not available 03/02/2019 Marital Status Informatio n not available 03/02/2019 What Was The Date Of Your Most Recent Tobacco Screening? 09/03/2021 [email or web address] Information not available 09/03/2021 How Much Tobacco Do You Smoke? No Information not available 08/28/2020 How Many Years Have You Smoked Tobacco? 0 Information not available 08/28/2020 Sex: Female Functional Status Question Answer Note LastModified by Organizat ion Details LastModified Time What is your level of alcohol consumption? None Information not available 03/02/2019 Do you or have you ever used smokeless tobacco? Never used smokeless tobacco Information not available 08/28/2020 Do you or have you ever used e-cigarettes or vape? Never used electronic cigarettes Information not available 08/28/2020 Mental Status None recorded. Family History Relationship Description Onset Age of this Age Resolved Age Notes LastModified by Organization Details LastModified Time Mother Family history of malignant neoplasm breast cancer in her 60's cbeiting Not available 09/12/2019 10:30:46 Maternal Grandfather Family history of malignant neoplasm stomac h cancer Not available 08/28/2020 10:04:10 Paternal Grandfather Family history of malignant neoplasm colon cancer Not available 08/28/2020 10:04:07 Medical History Condition Response Pancreatitis N Anxiety/Depression N Other N Gout N Thyroid Disease N Macular Degeneration N Colon Cancer Y Kidney Stones N Hyperthyroidism N Heart Arrhythmia N Breast Cancer N Emphysema N Hernia N COPD N Depression N Hypothyroidism N Glaucoma N Pneumonia Y Thyroid nodule mass N Anesthesia Complications N Deep Vein Thrombosis N Anxiety Disorder N Hypercalcemia N Arthritis N Esophagus/swallowing trouble N Shingles N Blood Clot N Acid Reflux (GERD) Y Cancer Y Hypoglycemia N Varicosities N Stroke N Thyroid cyst N Blood Thinners N Alcohol Overuse/Alcohol Abuse N High Cholesterol Y Skin Cancer Y Liver Disease N Kidney Disease N Allergies/Hayfever N Heart Problems N Heart Conditions N Black Lung N Gallbladder Disease Y Migraines N Kidney or Bladder Problems N Thyroid Problems N Goiter N Skin Problems N Nervous Breakdown N Anemia N Immune System Disorder N Chest Pain N Stomach trouble N Colon Polyps Y Ulcers N Heart Attack ([place]) N Osteopenia N Mental Illness N Neurological Problems N Ovarian Cancer N Diabetes N Rheumatic Fever N High triglycerides N Bleeding Disorder N Seizures/Epilepsy N Tuberculosis N Genetic Disorder N AIDS/HIV N Congestive Heart Failure (CHF) N Hyperlipidemia N Diverticulitis N Cataract N Asthma N Epilepsy/Seizures N Sleep Apnea N Hepatitis N Included as Review of Systems N Hypertension N Osteoporosis Y Gynecological History Statement/Question Response Abnormal Pap Y If Post Menopausal, Age at Menopause 51 Date of Last Colonoscopy 08/22/2019 Date of Last Mammogram Sexually Active? Y Post Menopausal Bleeding N Menses Monthly N Date of Last Pap Smear 05/12/2024 Most Recent Mammogram 10/08/2021 Current Control Method Menopause Obstetrics History GPAL:G 3 P 2 0 1 0 Type Value Full Term 2 Spontaneous 1 Total 3 Past Encounters Encounter ID Performer Location Encounter Start Date Encounter Closed Date Diagnosis/Indication Diagnosis SNOMED-CT Code Diagnosis ICD10 Code Diagnosis Note [id number] SCOTT DENIS APRN ENDOCRINO [facility] [address] [place] [address] 01/02/2025 08:46:44 01/02/2025 09:23:09 Postmenopausal osteoporosis [id number] M81.0 Administer #4 today 01/02/25, last injection was 12/01/24. Health Concerns Section Related Observation LastModified by Organization Detai ls LastModified Time None Recorded Concern Status LastModified by Organization Details LastModified Time None Recorded Payers Encounter Date Sequence Insurance Name Policy Number Policy Garces Covered Member ID Garces Member ID Guarantor Name 01/02/2025 1 [place] Micha Moreira [id number] Micha Messer Lillie 01/02/2025 2 [employer] (MEDICARE SUPPLEMENT) Micha Moreira [id number] Micha Moreira OBGyn Episode No OBEpisode recorded.
--- OUTSIDE RECORDS SUMMARY | 2025-01-17 12:39 | XMS_ITS | Data Portability ---
Author Organization [facility] Jodie hennessy, C[facility] [place] [facility] Address [address] [facility] [address] [place] [address] Care Team Providers Care Welder Gas Name Role Phone VIGNESH JOY Primary Care Provider [phone] RAGINI SALOMON Referring Provider Assessment No assessment recorded. Plan of Treatment Reminders Order Date Submit Date Provider Last Modified By Organization Details Last Modified Time Details Appointments RECHECK 2024 03:15P M JACKIE GALAVIZ MD Not available Not available Not available INJECTION 2024 10:15A M Endocrino logy_nurs e Not available Not available Not available ANNUAL RAW MATERIAL HANDLER 2024 01:00P M PUMA PURI BLUE CRABBER Not available Not available Not available Lab PTH (parathyr oid hormone), intact + calcium, serum or plasma 2024 025 [facility], [address] [place] [address], [phone], 08/24/2024 16:34:01 BMP, serum or plasma 2024 025 [facility], [facility] [place], [address], 08/24/2024 16:54:02 Referral None recorded. Procedures None recorded. Surgeries None recorded. Imaging None recorded. Medication Orders Evenity 210 mg/2.34 mL (105 mg/1.17 mL x 2) subcutane ous syringe 2024 025 [email or web address] 8 [facility] 591, [address], [address], 01/02/2025 14:39:56 Evenity 210 mg/2.34 mL (105 mg/1.17 mL x 2) subcutane ous syringe 2024 025 [email or web address] [facility] 591, [address], [address], 12/01/2024 14:16:33 Evenity 210 mg/2.34 mL (105 mg/1.17 mL x 2) subcutane ous syringe 2024 025 [email or web address] Not available 10/31/2024 16:20:38 Evenity 210 mg/2.34 mL (105 mg/1.17 mL x 2) subcutane ous syringe [email or web address] [address], [address], 09/30/2024 14:26:37 Evenity 210 mg/2.34 mL (105 mg/1.17 mL x 2) subcutane ous syringe [address] [facility], [address], [address], 08/24/2024 15:23:10 Patient TargetsNo targets recorded. Patient Instructions Encounter Date Encounter Id Patient Instructions Last Modified By Organization Details Last Modified Time 08/24/2024 [id number] preventing falls : care instructions Not available 08/24/2024 15:24:24 osteoporosis: care instructions Not available 08/24/2024 15:24:24 Reason for Referral None Reported. Results Created Date Observation Date Name Description Value Unit Range Abnormal Flag Note LastModifiedBy Organization Detail LastModifiedTime 08/18/19 25 08/18/2024 VITAM IN D 25-OH vitamin D 25-oh, total 38 NG/mL >=30 NG/mL normal Not Available [facility] [place], [address], 08/18/2024 20:20:11 08/25/1908/24/2024 PTH, INTAC T WITH CA PTH, intact 38.0 pg/mL 15.0-6 5.0 normal INTER PRETI VE GUIDE ===== ===== ===== ===== ===== ===== ===== ===== ===== ===== ===== === PTH CALCI UM CONDI TION ===== ===== ===== ===== ===== ===== ===== ===== ===== ===== ===== = Cally l Cally l Cally l Parat hyroi d _ Low or Low Hypop reina yroid ism Low Cally l _ Cally l or High Prima ry Hyper parat hyroi dism High __ High Cally l or Secon abraham Hyper parat hyroi dism Low __ High High Terti manuelito Hyper parat hyroi dism __ Low or High Non-P reina yroid Hyper calce diane Low Cally l ===== ===== ===== ===== ===== ===== ===== ===== ===== ===== ===== ==== Not Available [facility] [address] [place] [address], [phone], 08/24/2024 17:06:46 08/25/19 25 08/24/2024 PTH, INTAC T WITH CA calcium 10.0 mg/dL 8.6-10 .2 normal Not Available [facility] [address] [place] [address], [phone], 08/24/2024 17:06:46 08/25/19 25 08/24/2024 BASIC METAB OLIC PANEL glucose 98 mg/dL 74-100 normal Not Available [facility] [address] [place] [address], [address], 08/24/2024 16:54:02 08/25/19 25 08/24/2024 BASIC METAB OLIC PANEL blood urea nitrogen 10 mg/dL 6-20 normal Not Available [facility] [address] [place] [address], [address], 08/24/2024 16:54:02 08/25/19 25 08/24/2024 BASIC METAB OLIC PANEL creatinine 0.83 mg/dL 0.50-0 .95 normal Not Available [facility] [address] [place] [address], [address], 08/24/2024 16:54:02 08/25/19 25 08/24/2024 BASIC METAB OLIC PANEL BUN/creatini ne ratio 12 (calc ) 10-20 normal Not Available [facility] [address] [place] [address], [address], 08/24/2024 16:54:02 08/25/19 25 08/24/2024 BASIC METAB OLIC PANEL sodium 137 mmol/ L 136-14 5 normal Not Available [facility] [address] [place] [address], [address], 08/24/2024 16:54:02 08/25/19 25 08/24/2024 BASIC METAB OLIC PANEL potassium 4.9 mmol/ L 3.4-5. 0 normal Not Available [facility] [address] [place] [address], [address], 08/24/2024 16:54:02 08/25/19 25 08/24/2024 BASIC METAB OLIC PANEL chloride 100 mmol/ L 98-107 normal Not Available [facility] [address] [place] [address], [address], 08/24/2024 16:54:02 08/25/19 25 08/24/2024 BASIC METAB OLIC PANEL carbon dioxide 26 mmol/ L 22-31 normal Not Available [facility] [address] [place] [address], [address], 08/24/2024 16:54:02 08/25/19 25 08/24/2024 BASIC METAB OLIC PANEL anion gap 11 (calc ) 7-25 normal Not Available [facility] [address] [place] [address], [address], 08/24/2024 16:54:02 08/25/19 25 08/24/2024 BASIC METAB OLIC PANEL calcium 9.9 mg/dL 8.6-10 .2 normal Not Available [facility] [address] [place] [address], [address], 08/24/2024 16:54:02 08/25/19 25 08/24/2024 BASIC METAB OLIC PANEL GFR 78 >= 60 normal NOT E New calcu latio n for GFR (CKD- EPI 2020) is formu lated witho ut race adjus tment facto rs at the recom menda tion of the Natio nal Kidne y Found ation and [place] ty of Nephr ology . This calcu latio n has not been valid ated in pregn ant women . For pedia tric patie nts refer to https ://ww w.derrick marcelo.o rg/pr ofess ional s/KDO QI/gf r_cal culat orPed Not Available [facility] [address] [place], [address], 08/24/2024 16:54:02 08/03/19 25 08/03/2024 DEXA No observ ation record ed. [email or web address] Sonam Bailey MD [address] [place], [address], 08/04/2024 13:19:45 11/16/19 25 11/10/2024 [email or web address] , scree zachary, tomos ynthe sis, bilat eral, w/ CAD No observ ation record ed. [email or web address] [facility] [address] [facility], [place], [address], 11/30/2024 08:11:04 01/03/20 25 01/02/2025 MRI, knee, w/o contr ast [facility] [address] [place] [address] [phone] Patien t Name: MICHA Hernandez t : [...] is a horizo ntal tear of the warehouse operations manager ior horn and midpor tion of the [...] a large horizo ntal tear of the warehouse operations manager ior horn and midpor tion of the medial menisc us in the right knee. 2. There are mild degene rative change s, a small joint effusi on and a modera te sized poplit eal cyst. Interp reted By: Trixie sosa MD Electr onical ly Signed By: Trixie sosa MD on 025 9:04 AM [email or web address] [facility] [address], [address], 01/02/2025 10:19:41 01/05/20 25 01/02/2025 MRI, knee, w/o contr ast No observ ation record ed. [email or web address] [facility] [address] [place] [address], [phone], 01/04/2025 16:36:13 Result Notes Documentation Provider Name and Address Organization Details Recorded Time Mri, Knee, W/o Contrast : [address] [address] Patient Name: MICHA MOREIRA Patient : 1960 [...] cyst. Interpreted By: Tomi Redding MD Sobia Francisco [facility] 01/02/2025 10:19:41 Problems Name Problem SNOMED Code Status Onset Date Resolution Date Notes Provider Name and Address Organization Details Recorded Time Malignant tumor of colon 335980307 Active 2021 Nguyen Busch [facility] 3 14:38:43 History of dysplasia of cervix 807153932 Active 2023 RAGINI PURI APRN-[address], [address], [facility] 4 20:03:21 Postmenopausal osteoporosis 508427279 Active 2024 SCOTT DENIS APRN [address] [place] [address], [address], [facility] 5 14:39:56 Problem Notes Documentation Provider Name and Address Organization Details Recorded Time Endocrinology Consult Note : [facility] [address] [place] [phone], Candy S (id #[id number], : 1960) [facility] [address] [place] [phone] Date: 08/24/2024RE: Micha Moreira : 1960, PT ID #[id number] D Amitykary PA-radha, I would like to thank you for referring Micha Moreira to our practice for consultation and evaluation. I have enclosed a copy of the office evaluation for your records. Sincerely, Electronically Signed by: MARY BREWSTER APRN, Tejinderountpavel Reason/DateTransition of Care Encounter 08/24/2024 - 03:00PM - ENDOCRINOLOGY SB History of Present IllnessMrsLawrence Moreira is a 64 year old female patient with a past medical history significant for colon cancer and osteoporosis, seen in the office today at the request of Ragini Salomon APRN. She was diagnosed with osteoporosis . Her last DEXA/BMD scan was on 08/03/24 . Results: 1. Post-menopausal state/prior fracture ____The L1-L4 lumbar spine bone density scan demonstrates lumbar spine T-score of -3.4, Z-score of -1.7, BMD 0.669 g/cm .The left hip bone density scan demonstrates a femoral neck T-score of -2.9, Z-score of -1.4, BMD 0.525 g/cm . The total left hip T-score of -2.4, Z-score of -1.2, BMD 0.648 g/cm .The lumbar spine TBS is 1.325 which suggest a normal microarchitecture compared to reference populationThe patient's associated BMD and TBS values suggest a low resilience to fracture. She has tried the following therapies:NONE She is currently not taking calcium supplements.She is currently not taking supplemental vitamin D.Exercise: yes started at the gym last month Onset of menopause: 51 Smoker: no>3 alcoholic beverages per day: noHistory of hip or vertebral fracture: noHistory of fractures in adult life, not a result of significant trauma? noHistory of hip/low back surgery: yes; hipright hipHistory of glucocorticoid therapy >3mo: no; ____ Dose: Duration:Parental history of hip fracture: noAt risk for falls: noFalls within past year: yes tripped but no injury throw rugs: YESsmall pets: NOshower/tub with grab bars: NOnon slip nuvia in tub/shower NOshower chair NO Stairs to enter home or within home: yes; Hand-rail present: yesChange in height: yes; Maximum adult height: 5'4 Review of SystemsNone recordedPhysical ExamConstitutional:General Appearance: healthy-appearing, well-nourished, and well-developed. Level of Distress: NAD. Ambulation: ambulating normally. Psychiatric:Insight: good judgement. Mental Status: active and alert. Head:Head: normocephalic. Lungs:Auscultation: breath sounds normal. Cardiovascular:Heart Auscultation: normal S1 and S2 and RRR. Neurologic:Gait and Station: normal gait and station. Back:Thoracolumbar Appearance: normal curvature.Procedure DocumentationNone recordedAssessment/Plan1. Postmenopausal osteoporosis--Reviewed and discussed bone density scan from 08/03/24- According to national osteoporosis Foundation, indications of anti-osteoporosis pharmacological therapy include:-A hip or vertebral [clinical symmetric] amacqkmu-Y-jwzln = -2.5 and the femoral neck or spine after appropriate evaluation to exclude secondary causes-Low bone mass [T-score between -1 and -2.5 at the femoral neck or spine] and that any of probability of a hip fracture = 3% or a 10 year possibility of a major osteoporotic fracture equals 20% based on [place]-adapted WHO of algorithm) -Patient qualifies for therapy.-Discussed alternatives (i.e. prolia). Discussed potential common and rare side effects. Patient is agreeable to therapy if appropriate. order PTH/Ca, Vit D, CMPPA for Evenity -General recommendations for osteoporosis discussed: 1200mg calcium daily, 1000-2000IU vitamin D daily, weight bearing exercise 2-3x/week, and falls prevention strategies. -Patient verbalized understanding and agreed doctors hospital plan. All questions answered.M81.0: Age-related osteoporosis without current pathological fracture PTH, INTACT WITH CA BMP Evenity 210 mg/2.34 mL (105 mg/1.17 mL x 2) subcutaneous syringe - Inject 2.34 mL by subcutaneous route. Quantity: (2.34) mL Lot #: [id number] Site: Arm, Left Upper Seismograph Helper: AMGEN Exp Date: 09/19/2026 Administered PREVENTING FALLS: CARE INSTRUCTIONS OSTEOPOROSIS: CARE INSTRUCTIONS Return to Office ENDOCRINOLOGY_NURSE for INJECTION at ENDOCRINOLOGY SB on 09/30/2024 at 02:15 PM NASIR GOLDBERGRADHA for ANNUAL RAW MATERIAL HANDLER at [facility] on 05/17/2025 at 01:00 PM NASIR GOLDBERGRADHA [address] [place] [address], [phone], [facility] 08/24/2024 15:50:26 Procedures Surgical History Date Name Laterality Status Provider Name and Address Organization Details Recorded Time 08/03/19 25 DXA Osteoporosis completed SONAM BAILEY MD [address] [place] [address], [phone], [facility] 08/03/2024 12:54:41 05/12/20 24 Date of Last Pap Smear completed Neelam Toth [facility] 05/30/2024 10:08:46 09/12/19 23 Pap Smear collection completed ZOILA CURRIE MD [address] [place] [address], [address], [facility] 09/11/2022 15:17:25 02/01/20 22 open reduction of volvulus of sigmoid colon completed Nguyen Busch [facility] 09/11/2022 14:39:21 10/09/19 22 Most Recent Mammogram completed Lashaun Lim [facility] 09/08/2022 12:07:05 09/04/19 22 Pap Smear collection completed ZOILA CURRIE MD [address] [place] [address], [phone], [facility] 09/03/2021 09:47:07 08/29/19 21 Pap Smear collection completed ZOILA CURRIE MD [address] [place] [address], [address], [facility] 08/28/2020 10:23:21 04/09/20 20 Injection Joint/Bursa, Interm completed JACKIE GALAVIZ MD [address] [place] [address], [phone], [facility] 05/05/2020 16:30:31 01/02/20 20 repair of rotator cuff by suture completed Delfina Medel [facility] 08/28/2020 10:05:24 08/22/19 20 Date of Last Colonoscopy completed Lashaun Lim [facility] 08/21/2021 11:19:25 05/18/20 19 Cystoscopy completed Gladys Quinonezt [facility] 06/01/2019 16:17:08 06/22/19 04 Cholecystectomy completed Arlethmoreliaantonio Crawford [facility] 03/02/2019 15:33:13 Imaging Results None recorded. Procedure Notes None recorded. Medical Equipment None Reported. Allergies Allergen ID Allergen Name Allergen Category Reaction Reaction Severity Criticality Documentation Date Start Date Code Code System Note Provider Name and Address Organization Details Recorded Time 077065 Substance with sulfonami de structure and antibacte rial mechanism of action (substanc e) medicatio n rash mild Not available 03/02/2019 01698 8003 SNOMED [facility] Crawford [facility] 9 15:31:29 613255 doxycycli ne Not available headache severe Not available 06/29/2019 3640 RxNorm imme nse heada aaron Delfina Gianfranco [facility] 1 09:59:48 Medications Name Sig Start Date [...] Not Available Not Available Not Available Vitals Date Recorded Body height Body mass index (BMI) Body weight Heart rate Systolic And Diastolic Provider Name and Address Organization Details Last Updated DateTime 08/24/2024 157.48 cm 24.3 kg/m2 66207.79 g 72 /min 120/78 mm[Hg] [facility] 08/24/2024 14:39:25 Date Recorded Body height Provider Name an d Address Organization Details Last Updated DateTime 12/01/2024 157.48 cm [facility] 12/01/2024 13:56:31 Social History Question Answer Notes LastModified by Organizat ion Details LastModified Time Tobacco Smoking Status Never Smoker Gladys Crawford [facility] 03/02/2019 15:32:51 How Much Tobacco Do You Chew? None Information not available 03/02/2019 Marital Status Informatio n not available 03/02/2019 What Was The Date Of Your Most Recent Tobacco Screening? 09/03/2021 [place] Information not available 09/03/2021 How Much Tobacco [...] 10:04:07 Medical History Condition Response Pancreatitis N Other N Anxiety/Depression N Gout N Macular Degeneration N Thyroid Disease N Colon Cancer Y Kidney Stones N Hyperthyroidism N Breast Cancer N Heart Arrhythmia N Hernia N Emphysema N Depression N COPD N Glaucoma N Hypothyroidism N Pneumonia Y Thyroid nodule mass N Anesthesia Complications N Deep Vein Thrombosis N Anxiety Disorder N Hypercalcemia N Arthritis N Shingles N Esophagus/swallowing trouble N Blood Clot N Acid Reflux (GERD) Y Cancer Y Stroke N Varicosities N Hypoglycemia N Thyroid cyst N Blood Thinners N Alcohol Overuse/Alcohol Abuse N High Cholesterol Y Skin Cancer Y Liver Disease N Kidney Disease N Allergies/Hayfever N Heart Problems N Heart Conditions N Black Lung N Gallbladder Disease Y Migraines N Thyroid Problems N Kidney or Bladder Problems N Goiter N Skin Problems N Nervous Breakdown N Anemia N Chest Pain N Immune System Disorder N Stomach trouble N Colon Polyps Y Heart Attack (ME) N Ulcers N Osteopenia N Mental Illness N Neurological Problems N Diabetes N Ovarian Cancer N Rheumatic Fever N High triglycerides N Bleeding Disorder N Seizures/Epilepsy N Tuberculosis N Genetic Disorder N AIDS/HIV N Congestive Heart Failure (CHF) N Hyperlipidemia N Diverticulitis N Asthma N Cataract N Epilepsy/Seizures N Sleep Apnea N Hepatitis [...] SNOMED-CT Code Diagnosis ICD10 Code Diagnosis Note [id number] MD E[facility]L [facility] [address],[place] [address] 03/02/2019 14:45:50 03/02/2019 16:03:23 Acute cystitis 85884957 N30.00 plan as above. She will follow up on an as-needed basis. [id number] MD E[facility]L [facility] [address] [address] 05/04/2019 13:11:35 05/04/2019 13:51:48 Chronic infective cystitis 881551469 N30.20 we will arrange for cystoscopy . Urethral dilation. [facility] [id number] TOMI ESCOBAR MD SURGERY SCHEDULE [address] [place] [address] 05/18/2019 06:54:57 05/18/2019 06:56:46 [id number] JACKIE GALAVIZ MD [facility] [address] [place] [address] 05/25/2019 09:07:56 05/25/2019 11:45:07 Pain of left shoulder joint 4053795629 6081311 M25.512 Pain of ri ght shoulder joint 8880532375 9070608 M25.511 Pain of sh oulder region 67211645 M25.519 M [id number] MD E[facility]L [facility] [address] [address] 06/01/2019 15:42:57 06/01/2019 16:25:41 Urinary tract infectious disease 24789781 N39.0 Chronic in fective cystitis 212890722 N30.20 follow-up 3 months earlier if necessary Urethral stenosis 785168 003 N35.92 as above Midline cystocele 300757 003 N81.11 as above [id number] JACKIE GALAVIZ MD [facility] [address] [place] [address] 06/29/2019 13:45:16 06/29/2019 14:31:14 Pain of left shoulder joint 5423537089 4461220 M25.512 Pain of ri ght shoulder joint 4543583394 5471423 M25.852 [id number] JACKIE GALAVIZ MD [facility] [address] [place] [address] 07/13/2019 15:09:12 07/13/2019 16:36:28 Pain of left shoulder joint 5215805096 4025915 M25.512 Pain of ri ght shoulder joint 8230777477 1567921 M25.865 [id number] TOMI ESCOBAR MD EARL [facility] [address] [facility] [facility] [place] [address] 08/31/2019 15:55:14 08/31/2019 16:50:55 Prolapse of female genital organs 53267112 N81.9 as above Chronic cystitis 1771079 2 N30.20 stable for now follow up 6 months [id number] ZOILA CURRIE MD RAW MATERIAL HANDLER [facility] [address] [facility] [place] [address] 09/12/2019 09:56:33 09/12/2019 10:52:09 Atrophic vaginitis 42344423 N95.2 Midline cystocele 200776 003 N81.11 is mild. plan to add the topical vaginal estrogen, discussed we could do surgery for cystocele. / rectocele but I am not sure this will help with her main symptoms of voiding dysfunctio n and recurrent UTI. For now since we are not able to do surgery due to the pandemic, I will have her use the estrogen cream 3 x weekly for 6 months. do kegels exercises. see if this helps her symptoms, if they continue she will return in 6 months to discuss surgical repair. 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 I discussed continuing non operative treatment versus arthroscop ic evaluation and treatment with debridemen t/RYAN versus rotator cuff repair. Discussed risks of right shoulder arthroscop y with subacromia l decompress ion and rotator cuff repair to include: Infection Stiffness Nerve or blood vessel injury Failure of repair Deann-opera tive problems (medical/a nesthesia DVT, PE, Need for blood products Possible need for additional surgeries Patient is considerin g surgery. If patient elects to schedule surgery, controlled medication will be prescribed for post-op pain control. The risks and benefits of this type of medication were also discussed. After thorough discussion risks, benefits and alternativ e treatments , patient requests to proceed with surgery as outlined above. [id number] JACKIE GALAVIZ MD SURGERY SCHEDULE [address] [place] [address] 01/12/2020 06:07:15 01/12/2020 06:07:41 Postoperative care [id number] Z48.89 Postoperative pain 67017 9007 G89.18 [id number] JACKIE GALAVIZ MD [facility] [address] [place] [address] 01/20/2020 10:37:32 01/20/2020 11:35:47 Postoperative visit 371681623 Z09 Ms Moreira is doing well status post rotator cuff repair. I recommend continued protection of the repair and gentle range of motion. [id number] JACKIE GALAVIZ MD [facility] [address] [place] [address] 02/10/2020 09:05:27 02/10/2020 09:34:55 Postoperative care [id number] Z48.89 Ms Moreira is doing well status post rotator cuff repair. I recommend a course of physical therapy. [id number] JACKIE GALAVIZ MD [facility] [address] [place] [address] 03/12/2020 16:26:59 03/21/2020 14:39:09 Postoperative care [id number] Z48.89 Ms Moreira is doing well status post rotator cuff repair. I recommend continuati on of physical therapy and protection of the repair with activity restrictio ns. [id number] JACKIE GALAVIZ MD [facility] [address] [place] [address] 04/09/2020 16:31:34 04/09/2020 16:55:03 Postoperative care [id number] Z48.89 Ms Moreira is doing well status post rotator cuff repair. I recommend continuati on of physical therapy and protection of the repair with activity restrictio ns. Lateral ep icondylitis of right humerus 6009057418 26215 M77.11 Ms Moreira has moderate pain of lateral epicondyli tis. She requested and received corticoste roid injection to help with her pain. [id number] ZOILA CURRIE MD RAW MATERIAL HANDLER [facility] [address] [facility] [address] [place] [address] 08/28/2020 09:44:42 08/28/2020 10:33:41 Routine gynecologic examination done [id number] 9101 Z01.419 mammogram schedule hx of dysplasia. pap yearly if normal [id number] ZOILA CURRIE MD RAW MATERIAL HANDLER [address] [place] [address] 09/03/2021 09:19:05 09/03/2021 09:55:03 Routine gynecologic examination done 1056861905 9101 Z01.419 mammogram schedule hx of dysplasia. pap yearly if normal [id number] ZOILA CURRIE MD [facility] [address] [place] [address] 09/11/2022 14:14:35 09/11/2022 15:51:53 Routine gynecologic examination done [id number] 9101 Z01.419 yearly pap testing.hx of colon cancer. following up with Dr Dejesus at [facility].getti ng gene tested.valerie mogram scheduled. Mother with breast cancer. recurrent UTI. better with topical vagianl estrogen. Using small amount periurethr al 3 x weekly . [id number] RAGINI PURI APRN-CECI[facility] [address] [place] [address] 05/12/2024 16:11:35 05/13/2024 04:28:45 Gynecologic examination 90303615 Z01.419 Discussed routine well woman exams, mammograms , colonoscop ies after age 45 or sooner if a strong family history, bone density scans once postmenopa usal. Eat a healthy diet and exercise regularly. Consider calcium and vitamin D supplement ation for healthy bones. Postmenopausal state 764 63836 Z78.0 Screening for malignant neoplasm of breast 890091798 Z12.39 Atrophic vaginitis 05447 000 N95.2 [id number] SONAM BAILEY MD BONE DENSITY SB [address] [place] [address] 08/03/2024 10:57:49 08/03/2024 11:33:00 Osteoporosis 11071533 M81.0 [id number] MARY BREWSTER APRN ENDOCRINO LOGY SB [address] [place] [address] 08/24/2024 14:28:47 08/24/2024 15:18:34 Postmenopausal osteoporosis 004327386 M81.0 -Reviewed and discussed bone density scan from 08/03/24- According to national osteoporos is Foundation , indication s of anti-osteo porosis pharmacolo gical therapy include:-A hip or vertebral [clinical symmetric] fracture-T -score = -2.5 and the femoral neck or spine after appropriat e evaluation to exclude secondary causes-Low bone mass [T-score between -1 and -2.5 at the femoral neck or spine] and that any of probabilit y of a hip fracture = 3% or a 10 year possibilit y of a major osteoporot ic fracture equals 20% based on [place]-adapted WHO of algorithm) -Patient qualifies for therapy.-D iscussed alternativ es (i.e. prolia). Discussed potential common and rare side effects. Patient is agreeable to therapy if appropriat e. order PTH/Ca, Vit D, CMPPA for Evenity -General recommenda tions for osteoporos is discussed: 1200mg calcium daily, 1000-2000I U vitamin D daily, weight bearing exercise 2-3x/week, and falls prevention strategies . -Patient verbalized understand ing and agreed wtih plan. All questions answered. [id number] SONAM BAILEY MD ENDOCRINO LOGY SB [address] [place] [address] 09/30/2024 14:00:51 09/30/2024 14:18:17 Postmenopausal osteoporosis [id number] M81.0 #2-09/30/24 [id number] SONAM BAILEY MD ENDOCRINO LOGY SB [address] [place] [address] 10/31/2024 13:53:11 11/02/2024 18:27:51 Postmenopausal osteoporosis [id number] M81.0 #2-09/30/24 [id number] [place] [address] [place] [address] 12/01/2024 13:41:26 12/01/2024 14:37:48 Postmenopausal osteoporosis 657858005 M81.0 -Reviewed and discussed bone density scan from 08/03/24- According to national osteoporos is Foundation , indication s of anti-osteo porosis pharmacolo gical therapy include:-A hip or vertebral [clinical symmetric] fracture-T -score = -2.5 and the femoral neck or spine after appropriat e evaluation to exclude secondary causes-Low bone mass [T-score between -1 and -2.5 at the femoral neck or spine] and that any of probabilit y of a hip fracture = 3% or a 10 year possibilit y of a major osteoporot ic fracture equals 20% based on US-adapted WHO of algorithm) -Patient qualifies for therapy.-D iscussed alternativ es (i.e. prolia). Discussed potential common and rare side effects. Patient is agreeable to therapy if appropriat e. order PTH/Ca, Vit D, CMPPA for Evenity -General recommenda tions for osteoporos is discussed: 1200mg calcium daily, 1000-2000I U vitamin D daily, weight bearing exercise 2-3x/week, and falls prevention strategies . -Patient verbalized understand ing and agreed wtih plan. All questions answered. [id number] SCOTTJOSÉ LUIS DENIS APRN ENDOCRINO LOGY [address] [place] [address] 01/02/2025 08:46:44 01/02/2025 09:23:09 Postmenopausal osteoporosis [id number] M81.0 Administer #4 today 01/02/25, last injection was 12/01/24. Health Concerns Section Related Observation LastModified by Organization Detai ls LastModified Time None Recorded Concern Status LastModified by Organization Details LastModified Time None Recorded Advance Directives Directive None Recorded Payers Insurance Date Sequence Insurance Name Policy Number Policy Garces Covered Member ID Garces Member ID Guarantor Name 01/20/2020 1 [place] [id number] Mike Lillie [id number] Candy S Lillie 09/03/2021 1 [place] [id number] Mike S Lillie [id number] Candy S Lillie 01/17/2025 1 [place] Candy S Lillie [id number] Candy S Lillie 01/17/2025 2 [employer] (MEDICARE SUPPLEMENT) Candy S Lillie [id number] Candy S Lillie 08/02/2024 1 [place] [id number] Mike Lillie [id number] Candy S Lillie 01/17/2025 1 [place] [id number] Candy S Lillie [id number] Candy S Lillie OBGyn Episode No OBEpisode recorded.
--- OUTSIDE RECORDS SUMMARY | 2025-01-17 12:39 | XMS_ITS | Clinical Summary ---
Author Organization Healthcare Address [address] [place] [address] Care Team Providers Care Wheel Filler Name Role Phone Lilian Ochoa BUILDING ADMIN Primary Care Provider [phone] Social History Tobacco Use Types Packs/Day Years [...] of Treatment Not on file Care Teams Wheel Filler Relationship Specialty Start Date End Date Lilian Ochoa, BUILDING ADMIN [address] [place] [address] PCP - General 11/02/20
--- OUTSIDE RECORDS SUMMARY | 2025-01-17 12:39 | XMS_ITS | Encounter Summary ---
Author Organization [facility] Address [address] [place] [address] Care Team Providers Care Bus Driver Name Role Phone Amrita Jose APRN Primary Care Provider Encounter Details Date Type Department Care Team (Late st Contact Info) Description 02/26/2022 MDT Assessment [facility] HEMATOLOGY & ONCOLOGY [address] [place] [id number] Andrea Barker MD [address] [place] [address] Social History Tobacco Use Types Packs/Day Years Used Date Smoking Tobacco: Never Smokeless Tobacco: Never Alcohol Use Standard Drinks/Week Comments Not Currently 0 (1 standard drink = 0.6 oz pur e alcohol) occ AUDIT-C Answer Date Recorded Q1: How often do you have a drink containing alc ohol? Monthly or less 01/31/2022 Q2: How many drinks containi ng alcohol do you have on a typical day when you are drinking? 1 or 2 01/31/2022 Q3: How often do you have si x or more drinks on one occasion? 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 Not on file Not on file documented as of this encounter Plan of Treatment Upcoming Encounters Date Type Department Care Team (Late st Contact Info) Description 03/16/2025 9:30 AM EDT Office Visit [facility] CARDIOTHORACIC SURGERY [address] [address] Stacie Wilder, MANAGER HEART FAILURE [address] [address] documented as of this encounter Visit Diagnoses Not on filedocumented in this encounter Care Teams Bus Driver Relationship Specialty Start Date End Date Amrita Jose, MANAGER HEART FAILURE [address] [place] [address] PCP - General Internal Medicine 11/10/24 documented as of this encounter
--- OUTSIDE RECORDS SUMMARY | 2025-01-17 12:39 | XMS_ITS | Continuity of Care Document ---
Author Organization [facility], ENDOCRINOLOGY SB Address [address] [place] [address] Care Team Providers Care Sander Portable Machine Name Role Phone VIGNESH JOY Primary Care Provider KEAGAN MACDONALD Referring Provider [phone] Assessment No assessment recorded. Plan of Treatment Reminders Order Date Submit Date Provider Last Modified By Organization Details Last Modified Time Details Appointments RECHECK 2024 03:15P M JACKIE GALAVIZ MD Not available Not available Not available INJECTION 2024 10:15A M Endocrino logy_nurs e Not available Not available Not available ANNUAL ACCOUNT LEADER 2024 01:00P M PUMA PURI CARDIOPULMONARY SUPERVISOR Not available Not available Not available Lab None recorded. Referral None recorded. Procedures None recorded. Surgeries None recorded. Imaging None recorded. Medication Orders Evenity 210 mg/2.34 mL (105 mg/1.17 mL x 2) subcutane ous syringe 2024 025 [email or web address] [facility] 591, [address], [address], 12/01/2024 14:16:33 Patient TargetsNo targets recorded. Patient InstructionsNo instructions recorded. Reason for Referral None Reported. Results Created Date Observation Date Name Description Value Unit Range Abnormal Flag Note LastModifiedBy Organization Detail LastModifiedTime 11/16/1911/10/2024 MAMMO , scree zachary, tomos ynthe sis, bilat eral, w/ CAD No observ ation record ed. [email or web address] [facility] Outpatient Lab [address] [facility], [place], [address], 11/30/2024 08:11:04 01/03/20 25 01/02/2025 MRI, knee, w/o contr ast [address] [address] Patien t Name: MICHA MOREIRA Patifouzia t : [birth year] 59 Patien t 0 [...] is a horizo ntal tear of the check totaler ior horn and midpor tion of the [...] a large horizo ntal tear of the check totaler ior horn and midpor tion of the medial menisc us in the right knee. 2. There are mild degene rative change s, a small joint effusi on and a modera te sized poplit eal cyst. Interp reted By: Trixie sosa MD Electr onical ly Signed By: Trixie sosa MD on 025 9:04 AM [email or web address] [facility] Radiology [address] [place], [address], 01/02/2025 10:19:41 01/05/20 25 01/02/2025 MRI, knee, w/o contr ast No observ ation record ed. [email or web address] [facility] Radiology [facility] [address] [place] [address], [address], 01/04/2025 16:36:13 Result Notes None recorded. Problems Name Problem SNOMED Code Status Onset Date Resolution Date Notes Provider Name and Address Organization Details Recorded Time Malignant tumor of colon 676612237 Active 2021 Nguyen Current null, [facility] 3 14:38:43 History of dysplasia of cervix 565251305 Active 2023 KEAGAN PURI, CARDIOPULMONARY SUPERVISOR-[facility] [address] [place], [address], [facility] 4 20:03:21 Postmenopausal osteoporosis 026571422 Active 2024 SCOTT SCHWAB CARDIOPULMONARY SUPERVISOR [address] [place], [address], [facility] 5 14:39:56 Problem Notes None recorded. Procedures Surgical History Date Name Laterality Status Provider Name and Address Organization Details Recorded Time 08/03/19 25 DXA Osteoporosis completed SONAM JIMÉNEZ MD [address] [place] [address], [address], [facility] 08/03/2024 12:54:41 05/12/20 24 Date of Last Pap Smear completed Neelam Toth [facility] 05/30/2024 10:08:46 09/12/19 23 Pap Smear collection completed ZOILA CURRIE MD [address] [place] [address], [address], [facility] 09/11/2022 15:17:25 02/01/20 22 open reduction of volvulus of sigmoid colon completed Nguyen Jo-Ann [facility] 09/11/2022 14:39:21 10/09/19 22 Most Recent Mammogram completed Lashaun Lim [facility] 09/08/2022 12:07:05 09/04/19 22 Pap Smear collection completed ZOILA CURRIE MD [address] [place], [address], [facility] 09/03/2021 09:47:07 08/29/19 21 Pap Smear collection completed ZOILA CURRIE MD [address] [place], [address], [facility] 08/28/2020 10:23:21 04/09/20 20 Injection Joint/Bursa, Interm completed JACKIE GALAVIZ MD [address] [place], [address], [facility] 05/05/2020 16:30:31 01/02/20 20 repair of rotator cuff by suture completed Delfina Medel [facility] 08/28/2020 10:05:24 08/22/19 20 Date of Last Colonoscopy completed Lashaun Lim [facility] 08/21/2021 11:19:25 05/18/20 19 Cystoscopy completed Murelene Ty [facility] 06/01/2019 16:17:08 06/22/19 04 Cholecystectomy completed Murelene Ty [facility] 03/02/2019 15:33:13 Imaging Results None recorded. Procedure Notes None recorded. Medical Equipment None Reported. Allergies Allergen ID Allergen Name Allergen Category Reaction Reaction Severity Criticality Documentation Date Start Date Code Code System Note Provider Name and Address Organization Details Recorded Time 044861 Substance with sulfonami de structure and antibacte rial mechanism of action (substanc e) medicatio n rash mild Not available 03/02/2019 15202 8003 SNOMED Murelene Ty [facility] 9 15:31:29 471851 doxycycli ne Not available headache severe Not available 06/29/2019 3640 RxNorm imme nse heada aaron Delfina Gianfranco [facility] 1 09:59:48 Medications Name Sig Start Date [...] Not Available Vitals Date Recorded Body height Provider Name an d Address Organization Details Last Updated DateTime 12/01/2024 157.48 cm Angelica Schwab [facility] 12/01/2024 13:56:31 Social History Question Answer Notes LastModified by Organizat ion Details LastModified Time Tobacco Smoking Status Never Smoker Gladys Crawford antonina [facility] 03/02/2019 15:32:51 How Much Tobacco Do You Chew? None Information not available 03/02/2019 Marital Status Informatio n not available 03/02/2019 What Was The Date Of Your Most Recent Tobacco Screening? 09/03/2021 [email or web address] Information not available 09/03/2021 How Much Tobacco [...] Colon Polyps Y Ulcers N Heart Attack (SD) N Osteopenia N Mental Illness N Neurological [...] SNOMED-CT Code Diagnosis ICD10 Code Diagnosis Note [id number] SONAM [place] [address] [place], [place] [address] 10/31/2024 13:53:11 11/02/2024 18:27:51 Postmenopausal osteoporosis 299606223 M81.0 #2-09/30/24 [id number] MARY BREWSTER APRN ENDOCRINO LOGY SB [address] [place], [place] [address] 12/01/2024 13:41:26 12/01/2024 14:37:48 Postmenopausal osteoporosis 352534867 M81.0 -Reviewed and discussed bone density scan [...] and agreed wtih plan. All questions answered. Health Concerns Section Related Observation LastModified by Organization Detai ls LastModified Time None Recorded Concern Status LastModified by Organization Details LastModified Time None Recorded Payers Encounter Date Sequence Insurance Name Policy Number Policy Garces Covered Member ID Garces Member ID Guarantor Name 12/01/2024 1 [place] Micha Moreira [id number] Micha Moreira 12/01/2024 2 [employer] (MEDICARE SUPPLEMENT) Micha Messer Lillie [id number] Micha Moreira OBGyn Episode No OBEpisode recorded.
--- OUTSIDE RECORDS SUMMARY | 2025-01-17 12:39 | XMS_ITS | Encounter Summary ---
Author Organization [facility] Address [address] [place] [address] Care Team Providers Care Sql Server Dba Name Role Phone Amrita Jose APRN Primary Care Provider Encounter Details Date Type Department Care Team (Late Contact Info) Description 01/01/2022 MDT Assessment [facility] HEMATOLOGY & ONCOLOGY [address] [facility] [address] [place] [address] Andrea Barker MD [address] [facility] [address] [place] [address] Social History Tobacco Use Types Packs/Day Years Used Date Smoking Tobacco: Never Smokeless Tobacco: Never Alcohol Use Standard Drinks/Week Comments Yes 0 (1 standard drink = 0.6 oz pur e alcohol) occ AUDIT-C Answer Date Recorded Frequency of Alcohol Consumption 2-4 times a thu06/27/2019 Average Number of Drinks Not on file 020 Frequency of Binge Drinking Not on file 11/2019 Comments No Sex and Gender Information Value Date Recorded Sex Assigned at Not on file Legal Sex Female 10:16 AM EDT Gender Identity Not on file Sexual Orientation Not on file documented as of this encounter Plan of Treatment Upcoming Encounters Date Type Department Care Team (Late Contact Info) Description 03/16/2025 9:30 AM EDT Office Visit [facility] CARDIOTHORACIC SURGERY [address] [facility] [address] [place] [address] Stacie Wilder, SQL SERVER DBA [address] [facility] [address] [place] [address] documented as of this encounter Visit Diagnoses Not on filedocumented in this encounter Additional Health Concerns Infection Onset Date Last Indicated Resolved Time COVID Screen (preop/placement) 01/28/2022 01/28/2022 01/28/2022 4:53 PM EDT documented as of this encounter Care Teams Sql Server Dba Relationship Specialty Start Date End Date Amrita Jose APRN [facility] [address] PCP - General Internal Medicine 11/10/24 documented as of this encounter
--- OUTSIDE RECORDS SUMMARY | 2025-01-17 12:39 | XMS_ITS | Clinical Summary ---
Author Organization [facility] ([place], [place], [place], [place]) Address [address] [place] [address] Care Team Providers Care Factory Representative Name Role Phone JoseAmrita lindsay EMBER Primary [...] Date Jv rded Speak language other than Turkish at home Not on file 07/11/2023 Want [...] 2034 Insurance BLUE CROSS/BLUE SHIELD Care Teams Factory Representative Relationship Specialty Start Date End Date Amrita Jose APRN [address] [address] PCP - General Nurse Practitioner 11/12/22
--- OUTSIDE RECORDS SUMMARY | 2025-01-17 12:39 | XMS_ITS | Encounter Summary ---
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 Based on the patient's responses, NCCN criteria for genetic testing was met. At the time of the assessment, the patient was provided with both written and video educational materials regarding genetic testing. Navigator follow-up: I have attempted to contact the patient via [employer] message to discuss the risk assessment results.The patient has not yet responded. My contact information was included in the [employer] message. * Theodora Quiroga - 11/07/2024 10:34 AM EDT I sent the patient a Planview message asking for a call to discuss assessment results. documented in this encounter Plan of Treatment Upcoming Encounters Date Type Department Care Team (Late st Contact Info) Description 03/16/2025 9:30 AM EDT Office Visit [facility] CARDIOTHORACIC SURGERY [address] [address] Stacie Wilder APRN [address] [address] documented as of this encounter Visit Diagnoses Not on filedocumented in this encounter Care Teams Manufacturing Operator Relationship Specialty Start Date End Date Amrita Jose APRN [address] [place] [address] PCP - General Internal Medicine 11/10/24 documented as of this encounter
--- OUTSIDE RECORDS SUMMARY | 2025-01-17 12:39 | XMS_ITS | Clinical Summary ---
Author Organization [facility] Address [address] [place] [address] Care Team Providers Care Er Medical Technician Name Role Phone Amrita Jose EMBER Primary Care Provider Allergies Active Allergy Reactions Criticality Noted Date Comments Doxycycline Headache High 01/09/2022 Sulfa Antibiotics Hives Low 05/28/2016 Medications lansoprazole (PREVACID) 30 MG capsule Take 1 capsule by mouth Daily. 04/23/2017 Active meloxicam (MOBIC) 15 MG tablet Take 1 tablet by mouth Daily. 12/16/2021 Active estradiol (ESTRACE) 0.1 MG/GM vaginal cream Insert 2 g into the vagina 3 (Three) Times a Week if Needed. Active simvastatin (ZOCOR) 20 MG tablet Take 1 tablet by mouth Every Night. Active [place]-3 Fatty Acids (fish oil) 1000 MG capsule capsule Take 1 capsule by mouth Daily With Breakfast. Active multivitamin (MULTI VITAMIN DAILY PO) Take 1 tablet by mouth Daily. 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 Status post colon resection 01/31/2022 Colon cancer 01/31/2022 Increased risk of breast cancer - elevated STEPHANIE score 06/27/2019 Overview (06/27/2019): 06/27/2019 - counseled SERM use and declined Cystocele, rectocele and uterine prolapse 2019 GERD 06/22/2017 High cholesterol 02/20/2017 Annual SKEWER UP exam in MP 01/01/2017 Overview (07/20/2019): SCREENING TESTS Year 2011 2012 2013 2014 2015 2016 2017 2018 2019 2020 2021 2022 2023 2024 2025 2026 2027 2028 2029 2030 Age [age] PAP 9 12 12 11 11 - HPV high risk XOCHITL [Birads] 9 [2] 10 [1] 10 [1] 11 [1] 11 [1] 11 [1] 12 [1] - 1 [1] STEPHANIE score 2.7 14.2 Colonoscopy x - - - - - - - DEXA [T-score] Frax [hip/any] Lipids [LDL / HDL / TG] Vitamin D Ovarian Screen Enter the month test was performed. 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 Rides to ride motorcycles with Encounters Date Type Department Care Team Description 11/11/2024 Documentation [facility] [address] [place] [address] Theodora Quiroga 11/10/2024 8:52 AM EDT - 11/10/2024 11:59 PM EDT Hospital Encounter [facility] [address] [place] [address] Ragini Perales APRN Encounter for other screening for malignant neoplasm of breast Discharge Disposition: Home or Self Care 11/10/2024 Travel 11/07/2024 Results Follow-Up PS[facility] CANC[facility] RISK ASSESSMENT [address] [place] [address] Theodora Quiroga from Last 3 Months Immunizations Immunization Administration Dates Next Due Tdap 03/31/2019 flucelvax quad pfs =>4 YRS 03/31/2019 Family History Medical History Relation Name Comments Breast cancer Mother Ovarian cancer Neg Hx Relation Name Status Comments Mother Social History Tobacco Use Types Packs/Day Years [...] 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 Not on file Not on file Last Filed Vital Signs Vital Sign Reading Time Taken Comments Blood Pressure 127/69 03/10/2024 9:36 AM EDT Pulse 65 03/10/2024 9:35 AM EDT Temperature 36.2 C (97.1 F) 03/10/2024 9:35 AM EDT Respiratory Rate 20 02/02/2022 12:1 1 PM EDT Oxygen Saturation 98% 03/10/2024 9:3 5 AM EDT Inhaled Oxygen Concentration - - Weight 60.8 kg (134 lb) 03/10/2024 9:35 AM EDT Height 162.6 cm (5' 4 ) 03/10/2024 9:35 AM EDT patient reports Body Mass Index 23 03/10/2024 9:35 AM EDT Plan of Treatment Upcoming Encounters Date Type Department Care Team (Late st Contact Info) Description 03/16/2025 9:30 AM EDT Office Visit [facility] [address] [address] Stacie Wilder APRN [address] [address] Health Maintenance Due Date Last Done Comments LIPID PANEL 1960 Pneumococcal Vaccine 50+ (1 of 1 - PCV) 2009 ZOSTER VACCINE (1 of 2) 2009 ANNUAL WELLNESS VISIT 05/28/2016 HEPATITIS C SCREENING 05/28/2016 PT PLAN OF CARE 12/21/2017 COVID-19 Vaccine (1 - 2023-2 5 season) 2024 INFLUENZA VACCINE 03/22/2025 03/31/2019 DXA SCAN 08/03/2026 08/03/2024 MAMMOGRAM 11/10/2026 11/10/2024, 10/21, 11/07/2022, Additional history exists TDAP/TD VACCINES (2 - Td or Tdap) 03/31/2029 019 COLONOSCOPY Discontinued 08/22/2019, 11/21/2011 COLORECTAL CANCER SCREENING Discontinued COLOGUARD Discontinued COLON CANCER SCREENING 5 YEA R SIGMOIDOSCOPY Discontinued CT COLONOGRAPHY Discontinued FECAL OCCULT BLOOD TEST Discontinued FIT Testing (1 year) Discontinued Medical Devices Implanted Type Area Cytologist Device Identifier Shelf Expiration Date Model / Serial / Lot Reload Thurman Endopath Gst 45mm Wht - [id number] Implanted:Qty : 1 on 01/31/2022 by Armaan Dejesus MD at [facility] Implant N/A: Abdomen [employer] 09/20/2023 [id number] / / [id number] Reload Thurman Flex Gst 45mm Grn - [id number] Implanted:Qty : 3 on 01/31/2022 by Armaan Dejesus MD at [facility] Implant N/A: Abdomen [employer] J 09/19/2024 [id number] / / [id number] Implant Description:Hip implant pt t hinks , wrist implant pt thinks Procedures Procedure Name Priority Date/Time Associated Diagnosis Comments MAMMO SCREENING DIGITAL TOMOSYNTHESIS BILATERAL W CAD Routine 11/10/2024 9:17 AM EDT Encounter for other screening for malignant neoplasm of breast AMBRY GENETIC ASSESSMENT Routine 11/07/2024 9:20 AM EDT from Last 3 Months Results * Mammo Screening Digital Tomosynthesis Bilateral With CAD (11/10/2024 9:17 AM EDT) Anatomical Region Laterality Modality Breast N/A Mammography 11/15/2024 12:3 7 PM EDT Impressions 11/15/2024 12:38 PM EDT Negative bilateral mammogram. RECOMMENDATION: Continue annual screening mammography. BI-RADS CATEGORY 1, NEGATIVE. CAD was utilized. The standard false-negative rate of mammography is between 10% and 25%. Complex patterns or increased breast density will markedly elevate the false-negative rate of mammography. A letter, in lay terminology, with the results of this exam will be mailed to the patient. 11/15/2024 12:[address] Shiloh Melvin MD on Narrative 11/15/2024 12:38 PM EDT DIGITAL SCREENING MAMMOGRAM WITH TOMOSYNTHESIS HISTORY: Screening Mammography. Low dose full field digital breast tomosynthesis imaging was performed with 2D and 3D acquisitions consisting of bilateral CC and MLO views. Examination is compared to prior examination dating back to 05/02/2015. Examination is read in conjunction with computer aided detection. FINDINGS: The breast tissue is heterogeneously dense, which may obscure small masses. No suspicious masses, microcalcifications or areas of architectural distortion are present. Ragini Perales COTTON FARMWORKER IMG MAMMOGRAPHY ORDERA BLES Final Result * (ABNORMAL) [facility] GENETIC RISK ASSESSMENT QUESTIONNAIRE - , (11/07/2024 9:20 AM EDT) Pathologist Sekou Martínez [facility] GENETICS NCCN NCCN met(A) [facility] Comment:High Risk Cancer Ris k Assessment 11/07/2024 9:20 AM EDT Ragini Perales COTTON FARMWORKER GENETIC TESTING Final Result [facility]
[address] [facility] [place] [address], [place] [phone] from Last [address] [facility] SUP MEDICARE A & B Advance Directives * CPR (Attempt to Resuscitate) (Latest Code Status on File) Date Activated Date Inactivated Comments 01/31/2022 1:58 PM 02/02/2022 3:17 PM Question Answer Comments Code Status (Patient has no pulse and is not breathing): CPR (Attempt to Resuscitate) Medical Interventions (Patie nt has pulse or is breathing): Full Support Level Of Support Discussed With: Patient Release to patient: Routine Release Care Teams Er Medical Technician Relationship Specialty Start Date End Date Amrita Jose APRN [address] [place] [address] [place] [id number] PCP - General Internal Medicine 11/10/24
--- OUTSIDE RECORDS SUMMARY | 2025-01-17 12:39 | XMS_ITS | Referral Summary ---
Author Organization [facility] ([place], [place], [place], [place]) Address [address] [place] [address] Care Team Providers Care Chief Passenger Ship Steward/Stewardess Name Role Phone Amrita Jose APRN Primary [...] Date Jv rded Speak language other than Azeri at home Not on file 07/11/2023 Want [...] file Insurance BLUE CROSS/BLUE SHIELD Care Teams Chief Passenger Ship Steward/Stewardess Relationship Specialty Start Date End Date Amrita Jose, ENVIRONMENTAL HEALTH PHYSICIAN [address] [phone] PCP - General Nurse Practitioner 11/12/22
== END 2025-01-16 23:59 | disposition home or self-care (01) ==
LOC: LAB.DROPOF 01-17 12:37
PROVIDERS: PCP Nurse Practitioner Family; Visit Provider Nurse Practitioner Family
DX: R35.0 Frequency of micturition (principal)
CPT/HCPCS: 87086

== ENCOUNTER 2025-02-15 10:30 | Outpatient (CLI) | payer MEDICARE, OTHER, SELFPAY ==
--- OUTSIDE RECORDS SUMMARY | 2025-01-26 11:37 | XMS_ITS | Encounter Summary ---
Author Organization [facility] Address [address] [place] [address] Care Team Providers Care Jukebox Coin Collector Name Role Phone Amrita Jose APRN Primary Care Provider [phone] Reason for Referral * MRI/CAT/PET Scan (Routine) - Closed Specialty Diagnoses / Procedures [facility] Referred To Contact Radiology Diagnoses Acquired dilation of ascending aorta and aortic root Thoracic aortic aneurysm without rupture, unspecified part Procedures CT Angiogram Chest Stacie Wilder APRN [address] [place] [address] Phone: tel: fax: [facility] [address] [place] [address] Phone: tel: Referral ID Status Reason Start Date Expiration Date Visits Re quested Visits Authorized [id number] Closed 01/13/2025 04/14/2026 1 1 Reason for Visit * MRI/CAT/PET Scan (Routine) - Closed Specialty Diagnoses / Procedures [facility] Referred To Contact Radiology Diagnoses Acquired dilation of ascending aorta and aortic root Thoracic aortic aneurysm without rupture, unspecified part Procedures CT Angiogram Chest Stacie Wilder APRN [address] [address] Phone: tel: fax: [facility] [address] [place] [address] Phone: tel: Referral ID Status Reason Start Date Expiration Date Visits Re quested Visits Authorized [id number] Closed 01/13/2025 04/14/2026 1 1 Encounter Details Date Type Department Care Team (Late st Contact Info) Description 01/26/2025 11:37 AM EDT - 01/26/2025 11:59 PM EDT Hospital Encounter [facility] [place] [address] [place] [address] Stacie Wilder, TRAVEL MED SURG RN [facility] [facility] [address] [address] [place] [address] Acquired dilation of ascending aorta [...] 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 [place]-3 Fatty Acids (fish oil) 1000 MG capsule capsule Take 1 capsule by mouth Daily With Breakfast. simvastatin (ZOCOR) 20 MG tablet Take 1 tablet by mouth Every Night. documented as of this encounter Plan of Treatment Upcoming Encounters Date Type Department Care Team (Late st Contact Info) Description 03/16/2025 9:30 AM EDT Office Visit [facility] CARDI[facility]ACIC SURGERY [address] [facility] [address] [place] [address] Stacie Wilder, TRAVEL MED SURG RN [address] [facility] [address] [place] [address] documented as of this encounter Procedures Procedure [...] MD 01/26/2025 4:54 PM EDT Workstation ID: [id number] Narrative 01/26/2025 4:[address] ANGIOGRAM [...] aneurysm measuring 4.2 cm. Overall stable compared topboder exam. Electronically Signed: Vidal Zeng MD 01/26/2025 4:54 PM EDT Workstation ID: [id number] Stacie Wilder APRN IMG CT ORDERABLES Final [...] mL documented in this encounter Care Teams Jukebox Coin Collector Relationship Specialty Start Date End Date Amrita Jose APRN [facility] [address] [address] PCP - General Internal Medicine 11/10/24 documented as of this encounter
[2025-02-15 14:06] LABS: Cholesterol 316 mg/dl (140-200); HDL Cholesterol 94 mg/dl (40-60); Triglycerides 187 mg/dl (30-150)
--- OUTSIDE RECORDS SUMMARY | 2025-02-16 14:31 | XMS_ITS | Encounter Summary ---
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 Not on file documented as of this encounter Plan of Treatment Upcoming Encounters Date Type Department Care Team (Late st Contact Info) Description 03/16/2025 9:30 AM EDT Office Visit [facility] CARDIOTHORACIC SURGERY [address] [address] Stacie Wilder, STRIPPER MACHINE OPERATOR [address] [address] documented as of this encounter Visit Diagnoses Not on filedocumented in this encounter Care Teams Clother In Relationship Specialty Start Date End Date Amrita Jose APRN [address] [place] [id number] PCP - General Internal Medicine 11/10/24 documented as of this encounter
--- OUTSIDE RECORDS SUMMARY | 2025-02-16 14:31 | XMS_ITS | Referral Summary ---
Author Organization [facility] ([place], [place], [place], [place]) Address [address] [place] [address] Care Team Providers Care Peanut Grader Name Role Phone Amrita Jose APRN Primary [...] Date Jv rded Speak language other than Japanese at home Not on file 07/11/2023 Want [...] file Insurance BLUE CROSS/BLUE SHIELD Care Teams Peanut Grader Relationship Specialty Start Date End Date Amrita Jose, FLAGMAN [address] [phone] PCP - General Nurse Practitioner 11/12/22
--- OUTSIDE RECORDS SUMMARY | 2025-02-16 14:31 | XMS_ITS | Encounter Summary ---
Author Organization [facility] Address [address] [place] [address] Care Team Providers Care Curriculum Coordinator Name Role Phone Amrita Jose APRN Primary Care Provider Encounter Details Date Type Department Care Team (Late st Contact Info) Description 01/01/2022 MDT Assessment [facility] HEMATOLOG[facility] & [facility]COLOGY [address] [facility] [address] [place] [address] Andrea Barker MD [address] [facility] [address] [place] [address] Social History Tobacco Use Types Packs/Day Years [...] [facility] C[facility]ERY [address] [facility] [address] [place] [address] Stacie Wilder, SCIENCE INTERPRETER [address] [address] documented as of this encounter Visit Diagnoses Not on filedocumented in this encounter Additional Health Concerns Infection Onset Date Last Indicated Resolved Time COVID Screen (preop/placement) 01/28/2022 01/28/2022 01/28/2022 4:53 PM EDT documented as of this encounter Care Teams Curriculum Coordinator Relationship Specialty Start Date End Date Amrita Jose APRN [address] [place] [id number] PCP - General Internal Medicine 11/10/24 documented as of this encounter
--- OUTSIDE RECORDS SUMMARY | 2025-02-16 14:31 | XMS_ITS | Encounter Summary ---
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 My contact information was included in the [employer] message. * Theodora Quiroga - 11/07/2024 10:34 AM EDT I sent the patient a [employer] message asking for a call to discuss assessment results. documented in this encounter Plan of Treatment Upcoming Encounters Date Type Department Care Team (Late st Contact Info) Description 03/16/2025 9:30 AM EDT Office Visit [facility] CARDIOTHORACIC SURGERY [address] [address] Stacie Wilder APRN [address] [address] documented as of this encounter Visit Diagnoses Not on filedocumented in this encounter Care Teams Pin Puller Relationship Specialty Start Date End Date Amrita Jose APRN [address] [place] [address] PCP - General Internal Medicine 11/10/24 documented as of this encounter
--- OUTSIDE RECORDS SUMMARY | 2025-02-16 14:32 | XMS_ITS | Encounter Summary ---
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 Not on file documented as of this encounter Plan of Treatment Upcoming Encounters Date Type Department Care Team (Late st Contact Info) Description 03/16/2025 9:30 AM EDT Office Visit [facility] CARDIOTHORACIC SURGERY [address] [place] [address] [address] [place] [phone] Stacie Wilder SAMPLE DISTRIBUTOR [address] [place] [address] documented as of this encounter Visit Diagnoses Not on filedocumented in this encounter Care Teams Tyre Retreader Relationship Specialty Start Date End Date Amrita Jose, SAMPLE DISTRIBUTOR [address] [place] [address] PCP - General Internal Medicine 11/10/24 documented as of this encounter
--- OUTSIDE RECORDS SUMMARY | 2025-02-16 14:32 | XMS_ITS | Clinical Summary ---
Author Organization [employer] ([place], [place], [place], [place]) Address [address] [place] [address] Care Team Providers Care Nematologist Name Role Phone JoseAmrita lindsay EMBER Primary Care Provider [phone] Allergies No known active allergies Social History [...] Date Jv rded Speak language other than American at home Not on file 07/11/2023 Want [...] 2034 Insurance BLUE CROSS/BLUE SHIELD Care Teams Nematologist Relationship Specialty Start Date End Date Amrita Jose APRN [address] [address] PCP - General Nurse Practitioner 11/12/22
--- OUTSIDE RECORDS SUMMARY | 2025-02-16 14:32 | XMS_ITS | Clinical Summary ---
Author Organization [facility] Address [address] [place] [address] Care Team Providers Care Trade Mark Examiner Name Role Phone Lilian Ochoa VOCATIONAL TRAINING DIRECTOR Primary Care Provider [phone] Social History Tobacco Use Types Packs/Day Years [...] of Treatment Not on file Care Teams Trade Mark Examiner Relationship Specialty Start Date End Date Lilian Ochoa, VOCATIONAL TRAINING DIRECTOR [address] [place] [address] PCP - General 11/02/20
--- OUTSIDE RECORDS SUMMARY | 2025-02-16 14:32 | XMS_ITS | Clinical Summary ---
[facility] Address [address] [place] [address] Care Team Providers Care Frame Wirer Name Role Phone Amrita Jose EMBER Primary [...] 1 tablet by mouth Every Night. Active [place]-3 Fatty Acids (fish oil) 1000 MG capsule [...] 2019 GERD 06/22/2017 High cholesterol 02/20/2017 Annual CIRCUIT JUDGE exam in MP 01/01/2017 Overview (07/20/2019): SCREENING [...] Encounters Date Type Department Care Team Description 01/26/2025 11:37 AM EDT - 01/26/2025 11:59 PM EDT Hospital Encounter [facility] [address] [place] [address] Stacie Wilder, LOOP PULLER Acquired dilation of ascending aorta and aortic root; Thoracic aortic aneurysm without rupture, unspecified part Discharge Disposition: Home or Self Care 01/26/2025 Travel from Last 3 Months Immunizations Immunization Administration [...] 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 [...] 03/16/2025 9:30 AM EDT Office Visit [facility] CARDIOTH[facility]ACIC SURGERY [address] [address] Stacie Wilder, LOOP PULLER [address] [address] Health Maintenance Due Date Last Done Comments [...] year) Discontinued Medical Devices Implanted Type Area Plane Captain Device Identifier Shelf Expiration Date Model / Serial / Lot Reload [place] Endopath Gst 45mm Wht - [id number] Implanted:Qty : 1 on 01/31/2022 by Armaan Dejesus MD at [facility] Implant N/A: Abdomen [employer]ON [employer] J 09/20/2023 [id number] / / [id number] Reload [place] Flex Gst 45mm Grn - [id number] Implanted:Qty : 3 on 01/31/2022 by Armaan Dejesus MD at [facility] Implant N/A: Abdomen ETHICON DIV [employer] J [employer] J 09/19/2024 [id number] / / [id number] Implant Description:Hip implant pt t peggy , wrist implant pt thinks Procedures Procedure Name Priority Date/Time Associated Diagnosis Comments CT ANGIOGRAM CHEST W WO CONTRAST Routine 01/26/2025 11:59 AM EDT Acquired dilation of ascending aorta and aortic root Thoracic aortic aneurysm without rupture, unspecified part MAMMO SCREENING DIGITAL TOMOSYNTHESIS BILATERAL W CAD Routine 11/10/2024 9:17 AM EDT Encounter for other screening for malignant neoplasm of breast from Last 3 Months or Most Recently Relevant to Health Maintenance Results * CT Angiogram Chest (01/26/2025 11:59 AM EDT) Anatomical Region Laterality Modality Chest, Vascular N/A Computed Tomogra phy 01/26/2025 4:50 PM EDT Impressions 01/26/2025 4:54 PM EDT Impression: Ascending aortic aneurysm measuring 4.2 cm. Overall stable compared to prior exam. Electronically Signed: Vidal Zeng MD 01/26/2025 4:54 PM EDT Workstation ID: [id number] Narrative 01/26/2025 4:[address] ANGIOGRAM [...] aneurysm measuring 4.2 cm. Overall stable compared toprior exam. Electronically Signed: Vidal Zeng MD 01/26/2025 4:54 PM EDT Workstation ID: [id number] Stacie Wilder LOOP PULLER IMG CT ORDERABLES Final Res ult * Mammo Screening Digital Tomosynthesis Bilateral With [...] of architectural distortion are present. Ragini Perales LOOP PULLER IMG MAMMOGRAPHY ORDERA BLES Final Result from Last 3 Months or Most Recently Relevant to Health Maintenance Insurance [facility] MEDICARE A & B Advance Directives * [...] Release to patient: Routine Release Care Teams Frame Wirer Relationship Specialty Start Date End Date Amrita Jose APRN [address] [place] [address] [address] [place] [address] PCP - General Internal Medicine 11/10/24
== END 2025-02-15 23:59 | disposition home or self-care (01) ==
LOC: LAB.DROPOF 02-16 14:29
PROVIDERS: PCP Nurse Practitioner Family; Visit Provider Nurse Practitioner Family
DX: E78.5 Hyperlipidemia, unspecified (principal)
CPT/HCPCS: 80061

== ENCOUNTER 2025-03-13 08:48 | Outpatient (CLI) | payer MEDICARE, OTHER, SELFPAY ==
--- OUTSIDE RECORDS SUMMARY | 2025-01-26 11:37 | XMS_ITS | Encounter Summary ---
Author Organization [facility] Address [address] [place] [address] Care Team Providers Care Heart Coordinator Name Role Phone Amrita Jose APRN Primary Care Provider [phone] Reason for Referral * MRI/CAT/PET Scan (Routine) - Closed Specialty Diagnoses / Procedures [facility] Referred To Contact Radiology Diagnoses Acquired dilation of ascending aorta and aortic root Thoracic aortic aneurysm without rupture, unspecified part Procedures CT Angiogram Chest Stacie Wilder APRN [address] [place] [address] Phone: tel: fax: [facility] [address] [place] [address] Phone: tel: Referral ID Status Reason Start Date Expiration Date Visits Re quested Visits Authorized [id number] Closed 01/13/2025 04/14/2026 1 1 Reason for Visit * MRI/CAT/PET Scan (Routine) - Closed Specialty Diagnoses / Procedures Referred By [facility] Referred To Contact Radiology Diagnoses Acquired dilation of ascending aorta and aortic root Thoracic aortic aneurysm without rupture, unspecified part Procedures CT Angiogram Chest Stacie Wilder APRN [address] [address] Phone: tel: fax: [facility] [address] [place] [address] Phone: tel: Referral ID Status Reason Start Date Expiration Date Visits Re quested Visits Authorized [id number] Closed 01/13/2025 04/14/2026 1 1 Encounter Details Date Type Department Care Team (Late st Contact Info) Description 01/26/2025 11:37 AM EDT - 01/26/2025 11:59 PM EDT Hospital Encounter [facility] [address] [place] [address] Stacie Wilder, SHAKE MAKER [facility] [facility] [address] [place] [address] Acquired dilation of ascending aorta and aortic root; Thoracic aortic aneurysm without rupture, unspecified part Discharge Disposition: Home or Self Care Social History Tobacco Use Types Packs/Day Years [...] Information Value Date Recorded Sex Assigned at Female 01/19/2025 12:31 PM EDT Legal Sex Female 10:16 AM EDT Gender Identity Not on file Sexual Orientation Not on file 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 lansoprazole (PREVACID) 30 MG capsule Take 1 capsule by mouth Daily. 04/23/2017 meloxicam (MOBIC) 15 MG tablet Take 1 tablet by mouth Daily. 12/16/2021 multivitamin (MULTI VITAMIN DAILY PO) Take 1 tablet by mouth Daily. [place]-3 Fatty Acids (fish oil) 1000 MG capsule capsule Take 1 capsule by mouth Daily With Breakfast. simvastatin (ZOCOR) 20 MG tablet Take 1 tablet by mouth Every Night. documented as of this encounter Plan of Treatment Upcoming Encounters Date Type Department Care Team (Late st Contact Info) Description 03/16/2025 9:30 AM EDT Office Visit [facility]ERY [address] [facility] [address] [place] [address] Stacie Wilder, SHAKE MAKER [address] [facility] [address] [place] [address] documented as of this encounter Procedures Procedure Name Priority Date/Time Associated Diagnosis Comments CT ANGIOGRAM CHEST W WO CONTRAST Routine 01/26/2025 11:59 AM EDT Acquired dilation of ascending aorta and aortic root Thoracic aortic aneurysm without rupture, unspecified part documented in this encounter Results * CT Angiogram Chest (01/26/2025 11:59 AM EDT) Anatomical Region Laterality Modality Chest, Vascular N/A Computed Tomogra phy 01/26/2025 4:50 PM EDT Impressions 01/26/2025 4:54 PM EDT Impression: Ascending aortic aneurysm measuring 4.2 cm. Overall stable compared to prior exam. Electronically Signed: Vidal Zeng MD 01/26/2025 4:54 PM EDT Workstation ID: [id number] Narrative 01/26/2025 4:[address] ANGIOGRAM CHEST Date of Exam: 01/26/2025 11:46 AM EDT Indication: HX AORTIC DISSECTION. Comparison: 02/17/2024 Technique: CTA of the chest was performed before and after the uneventful intravenous administration of 85 mL Isovue-370 . Reconstructed coronal and sagittal images were also obtained. In addition, a 3-D volume rendered image was created for interpretation. Automated exposure control and iterative reconstruction methods were used. Findings: Annulus measures 2 cm in diameter. The sinuses of Valsalva measure 3.7 cm the sinotubular junction measures 2.8 cm. The maximal diameter of the ascending aorta is 6 4.2 cm. The transverse aorta is normal in caliber. There is a bovine configuration to the aortic arch. The descending thoracic aorta is normal in caliber. The visualized abdominal aorta is normal in caliber. The proximal great vessels are unremarkable. The central airways are patent. There is partial right middle lobe atelectasis without a discrete lesion identified, unchanged from prior. No suspicious pulmonary nodules are identified. The thyroid is normal. No axillary or mediastinal adenopathy. Pulmonary artery is normal in caliber. Esophagus is unremarkable. Limited evaluation of the upper abdomen demonstrates postcholecystectomy changes and hepatic steatosis. No aggressive appearing lytic or sclerotic lesion identified. Procedure Note Vidal Zeng MD - 01/26/2025 CT ANGIOGRAM CHEST Date of Exam: 01/26/2025 11:46 AM EDT Indication: HX AORTIC DISSECTION. Comparison: 02/17/2024 Technique: CTA of the chest was performed before and after the uneventfulintravenous administration of 85 mL Isovue-370 . Reconstructed coronal andsagittal images were also obtained. In addition, a 3-D volume renderedimage was created for interpretation. Automated exposure control and iterative reconstructionmethods were used. Findings: Annulus measures 2 cm in diameter. The sinuses of Valsalva measure 3.7 cmthe sinotubular junction measures 2.8 cm. The maximal diameter of theascending aorta is 6 4.2 cm. The transverse aorta is normal in caliber.There is a bovine configuration to the aortic arch. The descending thoracic aorta is normal in caliber. Thevisualized abdominal aorta is normal in caliber. The proximal greatvessels are unremarkable. The central airways are patent. There is partial right middle lobeatelectasis without a discrete lesion identified, unchanged from prior. Nosuspicious pulmonary nodules are identified. The thyroid is normal. No axillary or mediastinal adenopathy. Pulmonaryartery is normal in caliber. Esophagus is unremarkable. Limited evaluationof the upper abdomen demonstrates postcholecystectomy changes and hepaticsteatosis. No aggressive appearing lytic or sclerotic lesion identified. IMPRESSION: Impression: Ascending aortic aneurysm measuring 4.2 cm. Overall stable compared topbreesportr exam. Electronically Signed: Vidal Zeng MD 01/26/2025 4:54 PM EDT Workstation ID: [id number] Stacie Wilder APRN IMG CT ORDERABLES Final Res ult documented in this encounter Visit Diagnoses Diagnosis Acquired dilation of ascending aorta and aortic root Thoracic aortic aneurysm without rupture, unspecified part documented in this encounter Administered Medications Inactive Administered Medications - up to 3 most recent administrations Medication Order MAR Action Action Date Dose Rate Site iopamidol (ISOVUE-370) 76 % injection 85 mL 85 mL, Intravenous, Once in Imaging, On Laura 01/26/25 at 1201, For 1 dose Given 01/26/2025 11:59 AM EDT 85 mL documented in this encounter Care Teams Heart Coordinator Relationship Specialty Start Date End Date Amrita Jose APRN [facility] [address] [address] PCP - General Internal Medicine 11/10/24 documented as of this encounter
--- NOTE | 2025-03-13 09:00 | MR_ITS ---
FINAL REPORT TECHNIQUE: Multiplanar and multisequence imaging of the lumbar spine was obtained without contrast. CLINICAL HISTORY: Lower back pain, bilateral sacroiliitis. bilateral leg pain worse on left side. COMPARISON: None FINDINGS: There is grade 1 anterolisthesis of L4 on L5. Vertebral body height is preserved. The spinal cord ends at the level of L2. There is normal signal intensity within the substance of the distal spinal cord. No acute bone marrow edema or pathologic marrow replacement. No acute paraspinal abnormality is identified. L1-2: There is no focal disc herniation, central canal stenosis or neuroforaminal narrowing. L2-3: There is no focal disc herniation, central canal stenosis or neuroforaminal narrowing. L3-4: There is no focal disc herniation, central canal stenosis or neuroforaminal narrowing. L4-5: An annular bulge is present with endplate degenerative change and facet osteoarthropathy. No central canal stenosis is noted, there is mild right greater than left neural foraminal narrowing. L5-S1: There is no focal disc herniation, central canal stenosis or neuroforaminal narrowing. IMPRESSION: Mild degenerative change of the L4-5 level, without significant canal stenosis. Reviewed, Interpreted and Dictated by Camila Wesley MD Transcribed by Hawa Ortiz Authenticated and [facility]
--- OUTSIDE RECORDS SUMMARY | 2025-03-13 09:18 | XMS_ITS | Clinical Summary ---
Author Organization [employer] ([place], [place], [place], [place]) Address [address] [place] [address] Care Team Providers Care Parachute Packer Name Role Phone JoseAmrita lindsay EMBER Primary [...] Date Jv rded Speak language other than Guinean at home Not on file 07/11/2023 Want [...] Shingles Vaccine (Zoster) (1 of 2) 2009 Falls Risk Screening 06/22/2024 COVID-19 VACCINE ( - 2023- season) 2025 Influenza Vaccine (#1) 2025 03/31/2019 DTAP/TDAP/TD VACCINES (2 - Td or Tdap) 03/31/2029 Respiratory Syncytial Virus (RSV) Adult or (1 - 1-dose 75+ series) 2034 Insurance BLUE CROSS/BLUE SHIELD Care Teams Parachute Packer Relationship Specialty Start Date End Date Amrita Jose APRN [address] [address] PCP - General Nurse Practitioner 11/12/22
--- OUTSIDE RECORDS SUMMARY | 2025-03-13 09:18 | XMS_ITS | Clinical Summary ---
Author Organization [facility] Address [address] [place] [address] Care Team Providers Care Glaze Handler Name Role Phone Lilian Ochoa Anny PA Primary Care Provider [phone] Social History Tobacco Use Types Packs/Day Years [...] EDT Plan of Treatment Not on file Insurance MEDICARE [facility] Care Teams Glaze Handler Relationship Specialty Start Date End Date Lilian Ochoa APRN [address] [place] [address] PCP - General 11/02/20
--- OUTSIDE RECORDS SUMMARY | 2025-03-13 09:18 | XMS_ITS | Referral Summary ---
Author Organization [employer] ([place], [place], [place], [place]) Address [address] [place] [address] Care Team Providers Care Chemist Pharmaceutical Name Role Phone Amrita Jose APRN Primary Care Provider [phone] Allergies No known active allergies Social History [...] Date Jv rded Speak language other than Finnish at home Not on file 07/11/2023 Want [...] file Insurance BLUE CROSS/BLUE SHIELD Care Teams Chemist Pharmaceutical Relationship Specialty Start Date End Date Amrita Jose, TELEVISION PRODUCTION CLERK [address] [id number] PCP - General Nurse Practitioner 11/12/22
--- OUTSIDE RECORDS SUMMARY | 2025-03-13 09:18 | XMS_ITS | Encounter Summary ---
Author Organization [facility] Address [address] [place] [address] Care Team Providers Care Push Connector Assembler Name Role Phone Amrita Jose APRN Primary Care Provider Encounter Details Date Type Department Care Team (Late st Contact Info) Description 02/26/[address] 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 CARDIOTHORACIC SURGERY [address] [address] Stacie Wilder, DRY CLEANING TEACHER [address] [address] documented as of this encounter Visit Diagnoses Not on filedocumented in this encounter Care Teams Push Connector Assembler Relationship Specialty Start Date End Date Amrita Jose APRN [address] [place] [address] PCP - General Internal Medicine 11/10/24 documented as of this encounter
--- OUTSIDE RECORDS SUMMARY | 2025-03-13 09:18 | XMS_ITS | Encounter Summary ---
Author Organization [facility] Address [address] [place] [address] Care Team Providers Care Breakfast Manager Name Role Phone Amrita Jose APRN Primary Care Provider Encounter Details Date Type Department Care Team (Late st Contact Info) Description 01/01/2022 MDT Assessment [facility] HEMATOLOGY & ONCOLOGY [address] [facility] [address] [place] [address] Andrea Barker MD [address] [facility] [address] [place] [address] Social History Tobacco Use Types Packs/Day Years [...] [facility] [address] [facility] [address] [place] [address] Stacie Wilder, SOCIAL SECURITY ASSESSOR [address] [address] documented as of this encounter Visit Diagnoses Not on filedocumented in this encounter Additional Health Concerns Infection Onset Date Last Indicated Resolved Time COVID Screen (preop/placement) 01/28/2022 01/28/2022 01/28/2022 4:53 PM EDT documented as of this encounter Care Teams Breakfast Manager Relationship Specialty Start Date End Date Amrita Jose APRN [address] [place] [address] PCP - General Internal Medicine 11/10/24 documented as of this encounter
--- OUTSIDE RECORDS SUMMARY | 2025-03-13 09:18 | XMS_ITS | Encounter Summary ---
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 Not on file documented as of this encounter Plan of Treatment Upcoming Encounters Date Type Department Care Team (Late st Contact Info) Description 03/16/2025 9:30 AM EDT Office Visit [facility] CARDIOTHORACIC SURGERY [address] [place] [address] [address] [place] [phone] Stacie Wilder STEAM TABLE WORKER [address] [place] [address] documented as of this encounter Visit Diagnoses Not on filedocumented in this encounter Care Teams Clerical Associate Relationship Specialty Start Date End Date Amrita Jose, STEAM TABLE WORKER [address] [place] [address] PCP - General Internal Medicine 11/10/24 documented as of this encounter
--- OUTSIDE RECORDS SUMMARY | 2025-03-13 09:18 | XMS_ITS | Clinical Summary ---
[facility] [address] [place] [address] Care Team Providers Care Checker Bakery Products Name Role Phone Amrita Jose EMBER Primary Care Provider [phone] Allergies Active Allergy Reactions Criticality Noted Date [...] 1 tablet by mouth Every Night. 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 [...] Description 03/16/2025 9:30 AM EDT Office Visit [facility] CARDIOTHORACIC SURGERY [address] [phone] Stacie Wilder, COMMERCIAL INTELLIGENCE MANAGER [address] [address] Health Maintenance Due Date Last Done Comments LIPID PANEL 1960 Pneumococcal Vaccine 50+ (1 of 1 - PCV) 2009 ZOSTER VACCINE (1 of 2) 2009 ANNUAL WELLNESS VISIT 05/28/2016 HEPATITIS C SCREENING 05/28/2016 PT PLAN OF CARE 12/21/2017 INFLUENZA VACCINE 01/20/2025 03/31/2019 COVID-19 Vaccine ( - 2023-2 5 season) 2025 DXA SCAN 08/03/2026 08/03/2024 MAMMOGRAM 11/15/2026 11/15/2024, 10/21, 11/09/2023, Additional history exists TDAP/TD VACCINES (2 - Td or Tdap) 03/31/2029 019 COLONOSCOPY Discontinued 08/22/2019, 11/21/2011 COLORECTAL CANCER SCREENING Discontinued COLOGUARD Discontinued COLON CANCER SCREENING 5 YEA R SIGMOIDOSCOPY Discontinued CT COLONOGRAPHY Discontinued FECAL OCCULT BLOOD TEST Discontinued FIT Testing (1 year) Discontinued Medical Devices Implanted Type Area Wood Car Builder Device Identifier Shelf Expiration Date Model / Serial / Lot Reload [place] Endopath Gst 45mm Wht - [id number] Implanted:Qty : 1 on 01/31/2022 by Armaan Dejesus MD at [facility] Implant N/A: Abdomen ETHICON DIV [employer] J AND J 09/20/2023 [id number] / / [id number] Reload [place] Flex Gst 45mm Grn - [id number] Implanted:Qty : 3 on 01/31/2022 by Armaan Dejesus MD at [facility] Implant N/A: Abdomen ETHICON DIV OF [...] MD 01/26/2025 4:54 PM EDT Workstation ID: [id number] Narrative 01/26/2025 4:[address] ANGIOGRAM [...] MD 01/26/2025 4:54 PM EDT Workstation ID: [id number] Stacie Wilder COMMERCIAL INTELLIGENCE MANAGER IMG CT ORDERABLES Final Res ult * [...] of architectural distortion are present. Ragini Perales COMMERCIAL INTELLIGENCE MANAGER IMG MAMMOGRAPHY ORDERA BLES Final Result from Last 3 Months or Most Recently Relevant to Health Maintenance Insurance [facility] MEDICARE A & B Advance [...] Release to patient: Routine Release Care Teams Checker Bakery Products Relationship Specialty Start Date End Date Amrita Jose APRN [address] [place] [address] [address] [place] [address] PCP - General Internal Medicine 11/10/24
--- OUTSIDE RECORDS SUMMARY | 2025-03-13 09:18 | XMS_ITS | Encounter Summary ---
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 My contact information was included in the [employer] message. * Theodora Quiroga - 11/07/2024 10:34 AM EDT I sent the patient a [employer] message asking for a call to discuss assessment results. documented in this encounter Plan of Treatment Upcoming Encounters Date Type Department Care Team (Late st Contact Info) Description 03/16/2025 9:30 AM EDT Office Visit [facility] CARDIOTHORACIC SURGERY [address] [address] Stacie Wilder APRN [address] [address] documented as of this encounter Visit Diagnoses Not on filedocumented in this encounter Care Teams Continuing Education Dean Relationship Specialty Start Date End Date Amrita Jose APRN [address] [place] [address] PCP - General Internal Medicine 11/10/24 documented as of this encounter
--- NOTE | 2025-03-13 09:45 | MR_ITS ---
FINAL REPORT CLINICAL HISTORY: Lumbar go, bilateral sacroiliitis. bilateral leg pain worse on left side. COMPARISON: None FINDINGS: Multiplanar and multisequence imaging of the pelvis were obtained without contrast. Bone marrow signal intensity is preserved. There is no acute fracture, contusion or pathologic marrow replacement. There are degenerative changes of the sacroiliac joints bilaterally. There is no subchondral T2 abnormality in the SI joints to suggest sacroiliitis. No bony erosions are identified. No fluid is present within the SI joints. The sacral nerve roots are unremarkable. 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 The presacral soft tissues are unremarkable. IMPRESSION: Degenerative changes in the sacroiliac joints bilaterally, without evidence of sacroiliitis. Reviewed, Interpreted and Dictated by Camila Wesley MD Transcribed by Hawa Ortiz Authenticated and [facility]
== END 2025-03-13 23:59 | disposition home or self-care (01) ==
LOC: RAD 08:49
PROVIDERS: PCP Nurse Practitioner Family; Visit Provider Nurse Practitioner Family
DX: M47.26 Other spondylosis with radiculopathy, lumbar region (principal); M46.1 Sacroiliitis, not elsewhere classified
CPT/HCPCS: 72148; 72195

== ENCOUNTER 2025-04-13 09:16 | Outpatient (CLI) | payer MEDICARE, OTHER, SELFPAY ==
--- OUTSIDE RECORDS SUMMARY | 2025-03-16 09:30 | XMS_ITS | Encounter Summary ---
Author Organization [facility] Address [address] [place] [address] Care Team Providers Care Mixer Operator Tablets Name Role Phone JoseAmrita lindsay EMBER Primary Care Provider [phone] Reason for Visit * Reason Comments Follow-up 1 yr follow up w/ CT A chest ascending aneurysm. Pt states that she is doing well with no complaints. 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 Not on file Not on file documented as of this encounter Last Filed Vital Signs Vital Sign Reading Time Taken Comments Blood Pressure 114/62 03/16/2025 9:29 AM EDT rit gh arm Pulse 67 03/16/2025 9:28 AM EDT Temperature 37 C (98.6 F) 03/16/2025 9:28 AM EDT Respiratory Rate - - Oxygen Saturation 96% 03/16/2025 9:28 AM EDT Inhaled Oxygen Concentration - - Weight 63 kg (139 lb) 03/16/2025 9:28 AM EDT Height 157.5 cm (5' 2 ) 03/16/2025 9:28 AM EDT p er pt Body Mass Index 25.42 03/16/2025 9:28 AM EDT documented in this encounter Progress Notes * Stacie Wilder APRN - 03/16/2025 9:30 AM EDT Images from the original note were not included. [facility] Cardiothoracic Surgery Office Follow Up Note Date of Encounter: 03/16/2025 Name: Chelsea Moreira : 1960 Referred By: No ref. provider found PCP: Amrita Jose APRN Chief Complaint: Chief Complaint Patient presents with Follow-up 1 yr follow up w/ CTA chest ascending aneurysm. Pt states that she is doing well with no complaints. Subjective History of Present Illness: Chelsea Moreira is a 64 y.o. female non-smoker with history of sigmoid colon cancer s/p resection 01/[address] Dejesus, HTN, HLD without statin therapy, and ascending TAA initially referred to 12/2021. No familial history of aneurysmal disease or sudden . Denies any unusual chest,upper back, or scapular pain. She continues to follow with Dr Dejesus in regards to her colon cancer. Follows up in CT/Vascular Surgery for [address] chest imaging. BP at goal. Review of Systems: Review of Systems Constitutional: Negative for chills, fever, malaise/fatigue, night sweats and weight loss. HENT: Negative for congestion, hearing loss, nosebleeds and odynophagia. Eyes: Positive for visual disturbance (poss cataract left eye). Cardiovascular: Negative for chest pain, claudication, dyspnea on exertion, leg swelling, orthopnea, palpitations and syncope. Respiratory: Negative for cough, hemoptysis, shortness of breath and wheezing. Endocrine: Negative for cold intolerance, heat intolerance, polydipsia, polyphagia and polyuria. Hematologic/Lymphatic: Does not bruise/bleed easily. Skin: Negative for itching, poor wound healing and rash. Musculoskeletal: Positive for joint pain (very mild). Negative for arthritis, back pain, joint swelling and myalgias. Gastrointestinal: Negative for abdominal pain, constipation, diarrhea, hematemesis, melena, nausea and vomiting. Genitourinary: Negative for dysuria, frequency, hematuria, nocturia and urgency. Neurological: Negative for dizziness, light-headedness, loss of balance and numbness. Psychiatric/Behavioral: Negative for depression and suicidal ideas. The patient is not nervous/anxious. Allergic/Immunologic: Negative for environmental allergies and HIV exposure. I have reviewed the following portions of the patient's history: problem list, current medications,allergies, past surgical history, past medical history, past social history, past family history, and ROS and confirm it's accurate. Allergies: Allergies Allergen Reactions Doxycycline Headache Sulfa Antibiotics Hives Medications: Current Outpatient Medications: Cholecalciferol (Vitamin D) 1.25 MG (70591 UT) capsule, , Disp: , Rfl: estradiol (ESTRACE) 0.1 MG/GM vaginal cream, Insert 2 g into the vagina 3 (Three) Times a Week if Needed., Disp: , Rfl: lansoprazole (PREVACID) 30 MG capsule, Take 1 capsule by mouth Daily., Disp: , Rfl: multivitamin (MULTI VITAMIN DAILY PO), Take 1 tablet by mouth Daily., Disp: , Rfl: [employer]-3 Fatty Acids (fish oil) 1000 MG capsule capsule, Take 1 capsule by mouth Daily With Breakfast., Disp: , Rfl: Romosozumab-aqqg (Evenity) 105 MG/1.17ML subcutaneous solution, Inject 2.34 mL by subcutaneous route for 30 days., Disp: , Rfl: simvastatin (ZOCOR) 20 MG tablet, Take 1 tablet by mouth Every Night., Disp: , Rfl: meloxicam (MOBIC) 15 MG tablet, Take 1 tablet by mouth Daily., Disp: , Rfl: History: Past Medical History: Diagnosis Date Anesthesia complication hard to wake up after surgery Arthritis Cancer colon Colon cancer GERD 2018 High cholesterol 02/2017 IBS (irritable bowel syndrome) 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 Skin cancer basal cell UTI (urinary tract infection) Wears glasses Past Surgical History: Procedure Laterality Date CERVICAL CONE BIOPSY 09/25/1988 CERVICAL CONE BIOPSY 01/28/1988 COLON RESECTION N/A 01/31/2022 Procedure: LAPAROSCOPIC LOW ANTERIOR RESECTION WITH LAPAROTOMY, PROCTOSCOPY; Surgeon: Miki Dejesus MD; Location: [facility]; Service: General; Laterality: N/A; COLONOSCOPY ENDOSCOPY FRACTURE SURGERY Left 1969 Left arm - no hardware HIP SURGERY Right 07/2016 Repair of labral tear via arthrotomy LAPAROSCOPIC CHOLECYSTECTOMY 2004 LAPAROSCOPIC TUBAL LIGATION Bilateral 07/22/1991 Bilateral laparoscopic tubal fulguration - bipolar current LEEP 12/17/2010 ORIF WRIST FRACTURE Right 2017 Unloading heavy objects from truck ROTATOR CUFF REPAIR Right 2019 SKIN CANCER EXCISION 2016 BCC vs SCC - from right rousseau URETHRAL DILATION 05/2019 WISDOM TOOTH EXTRACTION 2 removed Social History Socioeconomic History Marital status: Number of children: 2 Tobacco Use Smoking status: Never Smokeless tobacco: Never Vaping Use Vaping status: Never Used Substance and Sexual Activity Alcohol use: Not Currently Comment: occ Drug use: No Sexual activity: Defer Family History Problem Relation Age of Onset Breast cancer Mother 64 Ovarian cancer Neg Hx Objective Physical Exam: Vitals: 03/16/25 0928 03/16/25 0929 BP: 118/70 Comment: left arm 114/62 Comment: [facility] arm Pulse: 67 Temp: 98.6 ??F (37 ??C) SpO2: 96% Weight: 63 kg (139 lb) Height: 157.5 cm (62 ) Comment: per pt Body mass index is 25.42 kg/m??. Physical Exam Vitals reviewed. Constitutional: General: She is not in acute distress. Appearance: She is well-developed and well-groomed. She is not toxic-appearing. HENT: Head: Normocephalic and atraumatic. Eyes: General: Lids are normal. Conjunctiva/sclera: Conjunctivae normal. Pupils: Pupils are equal, round, and reactive to light. Neck: Vascular: No JVD. Cardiovascular: Rate and Rhythm: Normal rate and regular rhythm. Pulses: Carotid pulses are 2+ on the right side and 2+ on the left side. Radial pulses are 2+ on the right side and 2+ on the left side. Heart sounds: S1 normal and S2 normal. No murmur heard. Pulmonary: Effort: Pulmonary effort is normal. No respiratory distress. Breath sounds: Normal breath sounds. Musculoskeletal: General: Normal range of motion. Cervical back: Normal range of motion and neck supple. Skin: General: Skin is warm and dry. Capillary Refill: Capillary refill takes less than 2 seconds. Neurological: General: No focal deficit present. Mental Status: She is alert and oriented to person, place, and time. Psychiatric: Attention and Perception: Attention normal. Mood and Affect: Mood normal. Speech: Speech normal. Behavior: Behavior is cooperative. Cognition and Memory: Cognition normal. Judgment: Judgment normal. Imaging/Labs: CT ANGIOGRAM CHEST: 01/26/2025 (Personally reviewed and measure ascending aorta 4.0 cm except @ aboveaortic root 4.2 cm) IMPRESSION: Ascending aortic aneurysm measuring 4.2 cm. Overall stable compared to prior exam. Electronically Signed: Vidal Zeng MD 01/26/2025 CT Chest With & Without Contrast Diagnostic: 02/18/2024 Impression: 1. No acute intrathoracic process. 2. Stable borderline aneurysmal ascending aorta measuring 4 cm, unchanged. 3. Reduced bone mineral density suggestive of osteopenia/osteoporosis, follow-up DEXA scan may be helpful if not previously performed. 4. Additional chronic findings above. Electronically Signed: Roland Watts MD 02/18/2024 11:33 AM EDT Adult Transthoracic Echo Complete W/ Cont if Necessary Per Protocol (01/07/2023 09:04) Left ventricular systolic function is normal. Calculated left ventricular EF = 62% All left ventricular wall segments contract normally. The aortic valve is structurally normal with no regurgitation or stenosis present. The aortic valveappears trileaflet. Trace tricuspid valve regurgitation is present. Estimated right ventricular systolic pressure from tricuspid regurgitation is normal (<35 mmHg). Mild dilation of the ascending aorta is present. Measures [address] Chest With Contrast Diagnostic (12/10/2021 14:39) 1. No CT signs of metastatic disease in the chest, abdomen, pelvis or visualized skeletal structures. 2. There is question of eccentric bowel wall enhancement in the distal sigmoid colon as described above which likely corresponds to the reported sigmoid colon mass. The colon is decompressed and difficult to evaluate. There is no evidence of bowel obstruction. Correlation with the colonoscopy results is needed. 3. There is a 4 cm fusiform ascending thoracic aortic aneurysm. No previous chest CTs are available for comparison to assess for change versus stability. This report was finalized on 12/10/2021 5:21 PM by Alvarez Aguilera DO. Assessment / Plan Assessment / Plan: 1. Acquired dilation of ascending aorta and aortic root - 64 y.o. female non-smoker with history of sigmoid colon cancer s/p resection 01/[address] Dejesus,HTN, HLD without statin therapy, and ascending TAA initially referred to Dr. Bojorquez 12/2021. - No familial history of aneurysmal disease or sudden . - asymptomatic - BP @ goal - Surveillance CTA: stable 4.2 cm TAA - Continue annual surveillance imaging per SVS guidelines. Patient Education: Continue to maintain strict BP control w/ goal 130/80 mmHg or less. Continue to avoid tobacco use. Follow Up: Return in about 1 year (around 03/16/2026) for CTA chest. Or sooner for any further concerns or worsening sign and symptoms. If unable to reach us in the office please dial 911 or go to the nearest emergency department. Stacie Wilder APRN [facility] Cardiothoracic Surgery Time Spent: I spent 24 minutes caring for Chelsea on this date of service. This time includes time spent by me in the following activities: preparing for the visit, reviewing tests, obtaining and/or reviewing a separately obtained history, performing a medically appropriate examination and/or evaluation, counseling and educating the patient/family/caregiver, documenting information in the medical record, independently interpreting results and communicating that information with the patient/family/caregiver, and care coordination. documented in this encounter Plan of Treatment Upcoming Encounters Date Type Department Care Team (Late st Contact Info) Description 03/19/2026 11:00 AM EDT Office Visit [facility] CARDIOTHORACIC SURGERY [address] [place] [phone] Stacie Wilder, BLOCK CLEANER [address] [place] [address] documented as of this encounter Visit Diagnoses Diagnosis Acquired dilation of ascending aorta and aortic root- Primary documented in this encounter Care Teams Mixer Operator Tablets Relationship Specialty Start Date End Date Amrita Jose APRN [address] [place] [id number] PCP - General Internal Medicine 11/10/24 documented as of this encounter
--- OUTSIDE RECORDS SUMMARY | 2025-03-28 14:02 | XMS_ITS | Encounter Summary ---
Author Organization [facility] Address [address] [place] [address] Care Team Providers Care Splash Line Operator Name Role Phone Damon Amrita Moseley APRN Primary Care Provider [phone] Encounter Details Date Type Department Care Team (Latest Contact Info) Description 03/28/2025 2:02 PM EDT - 03/28/2025 11:59 PM EDT Hospital Encounter Medical Office Building Radiology [address] [place] [id number] Hip pain, left; Left knee pain, unspecified chronicity Discharge Disposition: Home or Self Care Social History Tobacco Use Types Packs/Day Years Used Date Smoking Tobacco: Never Smokeless Tobacco: Never Alcohol Use Standard Drinks/Week Comments Not Currently 0 (1 standard drink = 0.6 oz pur e alcohol) Comments No Sex and Gender Information Value Date Recorded Sex Assigned at Not on file Legal Sex Female 6:56 PM EDT Gender Identity Not on file Sexual Orientation Not on file documented as of this encounter Medications at Time of Discharge cholecalciferol (Vitamin D-3) 1.25 MG (78865 UT) capsule estradiol (Estrace) 0.1 MG/GM vaginal cream Insert 1 gram vaginally 3 nights weekly 05/12/2024 lansoprazole (Prevacid) [address] capsule Take 1 capsule by mouth daily. Multiple Vitamin (Multi Vitamin) tablet 1 (one) time each day at the same time. omega-3 (Fish Oil) 1000 MG capsule Take 1 capsule by mouth daily with breakfast. romosozumab-aqqg (Evenity) 105 MG/1.17ML solution prefilled syringe 08/24/2024 simvastatin (Zocor) 20 MG tablet Take 1 tablet by mouth daily. documented as of this encounter Plan of Treatment Upcoming Encounters Date Type Department Care Team (Late st Contact Info) Description 04/21/2025 8:00 AM EDT Procedure Visit [facility] Interventional Pain Medicine [address] [facility] [place] [address] Boyd Christian MD [address] [facility] [address] [place] [address] 05/02/2025 3:10 PM EST Office Visit Medical Office Building Surgery Spine & Joint [address] [facility], [address] [place] [address] Surya Zeng MD [address] [place] [address] documented as of this encounter Procedures Procedure Name Priority Date/Time Associated Diagnosis Comments XR KNEE LEFT 4+ VIEWS Routine 03/28/2025 2:14 PM EDT Left knee pain, unspecified chronicity XR HIP LEFT 2 OR 3 VIEWS Routine 03/28/2025 2:14 PM EDT Hip pain, left documented in this encounter Results * New Patient: XR Knee (Lateral / Canyon / Tunnel / AP Standing with Marker) (03/28/2025 2:14 PM EDT) Anatomical Region Laterality Modality Lower Extremities, Knee Left Digital Radiography Impressions 03/28/2025 2:31 PM EDT 1. Moderate osteoarthritis of the left knee. 2. Normal evaluation of the left hip. CRITICAL RESULT: No. COMMUNICATION: Per this written report. Drafted by Dhruv Arvizu MD on 03/28/2025 2:28 PM Final report signed by Dhruv Arvizu MD on 03/28/2025 2:31 PM Narrative 03/28/2025 2:31 PM EDT CLINICAL INDICATION: Hip Pain TECHNIQUE: XR HIP LEFT 2 OR 3 VIEWS, XR KNEE LEFT 4+ VIEWS COMPARISON: November 09, 2018 and August 08, 2016. FINDINGS: 2 views of the left hip show normal joint space and alignment. No fracture or osteonecrosis. Pubic symphysis is normal. Minimal degenerative changes of the sacroiliac joints. Chain sutures project over the rectum. 4 views of the left knee show subtle medial compartment joint space narrowing compared to prior exam. Minimal osteophyte formation in the patellofemoral and medial compartments. No fracture or osteonecrosis. No effusion. Standing AP view of the right knee shows normal joint space and alignment. Procedure Note Dhruv Arvizu MD - 03/28/2025 CLINICAL INDICATION: Hip Pain TECHNIQUE: XR HIP LEFT 2 OR 3 VIEWS, XR KNEE LEFT 4+ VIEWS COMPARISON: November 09, 2018 and August 08, 2016. FINDINGS: 2 views of the left hip show normal joint space and alignment. No fractureor osteonecrosis. Pubic symphysis is normal. Minimal degenerative changesof the sacroiliac joints. Chain sutures project over the rectum. 4 views of the left knee show subtle medial compartment joint spacenarrowing compared to prior exam. Minimal osteophyte formation in thepatellofemoral and medial compartments. No fracture or osteonecrosis. Noeffusion. Standing AP view of the right knee shows normal joint space andalignment. IMPRESSION: 1.Moderate osteoarthritis of the left knee. 2.Normal evaluation of the left hip. CRITICAL RESULT: No. COMMUNICATION: Per this written report. Drafted by Dhruv Arvizu MD on 03/28/2025 2:28 PM Final report signed by Dhruv Arvizu MD on 03/28/2025 2:31 PM Surya Zeng MD IMG XR PROCEDURES Final Resu lt * New Patient: XR Hip (AP Pelvis Standing with Ronald Marker / Frog Leg Lateral Standing) (03/28/2025 2:14 PM EDT) Anatomical Region Laterality Modality Lower Extremities, Hip Left Digital R adiography Impressions 03/28/2025 2:31 PM EDT 1. Moderate osteoarthritis of the left knee. 2. Normal evaluation of the left hip. CRITICAL RESULT: No. COMMUNICATION: Per this written report. Drafted by Dhruv Arvizu MD on 03/28/2025 2:28 PM Final report signed by Dhruv Arvizu MD on 03/28/2025 2:31 PM Narrative 03/28/2025 2:31 PM EDT CLINICAL INDICATION: Hip Pain TECHNIQUE: XR HIP LEFT 2 OR 3 VIEWS, XR KNEE LEFT 4+ VIEWS COMPARISON: November 09, 2018 and August 08, 2016. FINDINGS: 2 views of the left hip show normal joint space and alignment. No fracture or osteonecrosis. Pubic symphysis is normal. Minimal degenerative changes of the sacroiliac joints. Chain sutures project over the rectum. 4 views of the left knee show subtle medial compartment joint space narrowing compared to prior exam. Minimal osteophyte formation in the patellofemoral and medial compartments. No fracture or osteonecrosis. No effusion. Standing AP view of the right knee shows normal joint space and alignment. Procedure Note Dhruv Arvizu MD - 03/28/2025 CLINICAL INDICATION: Hip Pain TECHNIQUE: XR HIP LEFT 2 OR 3 VIEWS, XR KNEE LEFT 4+ VIEWS COMPARISON: November 09, 2018 and August 08, 2016. FINDINGS: 2 views of the left hip show normal joint space and alignment. No fractureor osteonecrosis. Pubic symphysis is normal. Minimal degenerative changesof the sacroiliac joints. Chain sutures project over the rectum. 4 views of the left knee show subtle medial compartment joint spacenarrowing compared to prior exam. Minimal osteophyte formation in thepatellofemoral and medial compartments. No fracture or osteonecrosis. Noeffusion. Standing AP view of the right knee shows normal joint space andalignment. IMPRESSION: 1.Moderate osteoarthritis of the left knee. 2.Normal evaluation of the left hip. CRITICAL RESULT: No. COMMUNICATION: Per this written report. Drafted by Dhruv Arvizu MD on 03/28/2025 2:28 PM Final report signed by Dhruv Arvizu MD on 03/28/2025 2:31 PM Surya Zeng MD IMG XR PROCEDURES Final Resu lt documented in this encounter Visit Diagnoses Diagnosis Hip pain, left Pain in joint, pelvic region and thigh Left knee pain, unspecified chronicity documented in this encounter Additional Health Concerns Assessment Noted Time A fall risk assessment has been complete d for the patient 03/28/2025 2:25 PM EDT A Body Mass Index follow-up plan has been documented for the patient 03/28/2025 5:13 PM EDT documented as of this encounter Care Teams Splash Line Operator Relationship Specialty Start Date End Date Amrita Jose APRN [address] [place] [address] PCP - General 03/15/25 documented as of this encounter
--- OUTSIDE RECORDS SUMMARY | 2025-03-28 14:10 | XMS_ITS | Encounter Summary ---
Author Organization [facility] Address [address] 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 Name Role Phone Amrita Jose APRN Primary Care Provider [phone] Reason for Referral * Other Medical (Routine) - Pending Review Specialty Diagnoses / Procedures Referred By Nisa pretty Referred To Contact Diagnoses Patellar bursitis of left knee Procedures Injection - Large Joint: L patellar bursa Surya Zeng MD [address] [place] [phone] Phone: tel: fax: Referral ID Status Reason Start Date Expiration Date V isits Requested Visits Authorized [id number] Pending Review 03/28/2025 09/27/2026 1 1 * Other Medical (Routine) - Pending Review Specialty Diagnoses / Procedures Referred By Nisa pretty Referred To Contact Diagnoses Arthritis of knee Procedures Injection - Large Joint: L knee Surya Zeng MD [address] [place] [address] Phone: tel: fax: Referral ID Status Reason Start Date Expiration Date V isits Requested Visits Authorized [id number] Pending Review 03/28/2025 09/27/2026 1 1 * Other Medical (Routine) - Authorized Specialty Diagnoses / Procedures Referred By Nisa pretty Referred To Contact Orthopaedic Surgery Diagnoses Tear of medial meniscus of left knee, current, unspecified tear type, initial encounter Arthritis of knee Procedures Large Joint Injection Surya Zeng MD [address] [place] [phone] Phone: tel: fax: Referral ID Status Reason Start Date Expiration Date V isits Requested Visits Authorized [id number] Authorized 03/28/2025 09/27/2026 1 1 * Consultation (Routine) - Closed Specialty Diagnoses / Procedures Referred By Nisa pretty Referred To Contact Pain Medicine Diagnoses Gluteal tendinitis of left buttock Surya Zeng MD [address] [place] [phone] Phone: tel: fax: [facility] Interventional Pain Medicine [address] [place] [address] Phone: tel: fax: Referral ID Status Reason Start Date Expiration Date V isits Requested Visits Authorized [id number] Closed Specialty Services Required 03/28/2025 09/27/2026 1 1 Scheduling Instructions Left glut min PRP Reason for Visit * Reason Comments Consult Consult * Consultation (Routine) - Closed Specialty Diagnoses / Procedures Referred By Nisa pretty Referred To Contact Orthopaedic Surgery Diagnoses Left hip pain Amrita Jose, COMM[employer]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 [address] [place] [address] Hip pain, left (Primary Dx); Left knee pain, unspecified chronicity; Tear of medial meniscus of left knee, current, unspecified tear type, initial encounter; Gluteal tendinitis of left buttock; Arthritis of knee; Patellar bursitis of left knee Social History Tobacco Use Types Packs/Day Years [...] Sign Reading Time Taken Comments Blood Pressure 125/78 03/28/2025 2:22 PM EDT Pulse 71 03/28/2025 2:22 PM EDT Temperature - - Respiratory Rate - - Oxygen Saturation 98% 03/28/2025 2:22 PM EDT Inhaled Oxygen Concentration - - Weight 63.5 kg (139 lb 15.9 oz) 03/28/2025 2:22 PM EDT Height 157.5 cm (5' 2 ) 03/28/2025 2:22 PM EDT Body Mass Index 25.6 03/28/2025 2:22 PM EDT documented in this encounter Miscellaneous Notes * Progress Notes - Samy Rod MD - 03/28/2025 2:10 PM EDT Subjective: Chelsea Moreira is a 64 y.o. y/o female w/ PMH R gluteal tendonitis s/p R glut med/min repair in 2017 who comes in today for evaluation of left hip and knee pain. The patient localizes the pain/problem to the left lateral hip and medial knee. The patient has had the problem in her left hip for about one year and the left knee since an injury in December. The problem for her left knee began after taking a wrong step while carrying a ladder and twisting her knee. The left hip pain began atraumatically. The patient reports the pain as Dull, Aching, and Burning in both her knee and hip. The patient reports the pain as worse in the knee than the hip. The pain/problem is better with rest. The pain/problem is worse with activity. The pain is Activity Related. The following treatments have been attempted: Anti-inflammatories, Massage/Chiropractor, Physical Therapy, Heat, and Ice. The patient has undergone physical therapy on her left hip though not for her knee. She has not seen much benefit to the physical therapy on the left hip. Past Medical History[1] Surgical History[2] Social History Socioeconomic History Marital status: Spouse name: Not on file Number of children: Not on file Years of education: Not on file Highest education level: Not on file Occupational History Not on file Tobacco Use Smoking status: Never Smokeless tobacco: Never Vaping Use Vaping status: Never Used Substance and Sexual Activity Alcohol use: Not Currently Drug use: Never Sexual activity: Yes Partners: Male control/protection: Female Sterilization Other Topics Concern Not on file Social History Narrative Not on file Social Drivers of Health Financial Resource Strain: Not on file Food Insecurity: No Food Insecurity (07/11/2023) Received from [facility] ([place], [place], [place], [place]) Food Insecurity Food run out past 12 months: Not on file Food did not last past 12 months: Not on file Transportation Needs: Not on file Physical Activity: Not on file Stress: Not on file Social Connections: Low Risk (07/11/2023) Received from [facility] ([place], [place], [place], [place]) Family and Community Support Help with Day to Day Activities: Not on file Feeling Lonely or Isolated: Not on file Intimate Partner Violence: Not on file Housing Stability: Not on file Allergies[3] Current Medications[4] I have reviewed and updated the patient's past medical history, past surgical history, social history, and family history. This is located both in the patient's note and their intake form that has been scanned into the medical record for today's visit. 14 point review of systems was reviewed per signed intake sheet and is otherwise negative except asnoted above. Objective: Body mass index is 25.6 kg/m??. 01/24/2016 12:41 PM 03/05/2016 1:42 PM 05/22/2016 3:04 PM 08/08/2016 9:30 AM 11/09/2018 8:41 AM 03/28/2025 2:22 PM Vitals Systolic 146 125 Diastolic 85 78 Heart Rate 63 71 Height (cm) 160 cm 160 cm 160 cm 160 cm 162.6 cm 157.5 cm Weight (kg) 53.07 kg 53.07 kg 53.07 kg 53.07 kg 54.3 kg 63.5 kg BMI 20.73 kg/m2 20.73 kg/m2 20.73 kg/m2 20.73 kg/m2 20.55 kg/m2 25.6 kg/m2 BSA (m2) 1.54 m2 1.54 m2 1.54 m2 1.54 m2 1.57 m2 1.67 m2 Visit Report Report Knee Pain location: Medial joint line and anterior knee over pre-patellar bursal swelling Skin: Effusion in pre-patellar bursa ROM: 0-130 Instability: Negative Alignment: neutral Effusion: pre-patellar effusion Limp: Antalgic Quadriceps strength level: 4/5 Hip: Trendelenburg: Negative Limp: Antalgic Leg Lengths: roughly equal ROM: 0-130 HF, 45 IR, 60 ER Abduction strength level: 4/5 Pain location: Lateral hip over GT w/ TTP My independent interpretation of radiographic testing shows: No acute osseus abnormalities with preserved joint space in both the knee and hip. Signal on MRI around the gluteal tendons consistent with partial thickness tear. L knee MRI with partial medial meniscal injury as well. New Patient: XR Hip (AP Pelvis Standing with Ronald Marker / Frog Leg Lateral Standing) Result Date: 03/28/2025 1. Moderate osteoarthritis of the left knee. 2. Normal evaluation of the left hip. CRITICAL RESULT:No. COMMUNICATION: Per this written report. Drafted by Dhruv Arvizu MD on 03/28/2025 2:28 PM Final report signed by Dhruv Arvizu MD on 03/28/2025 2:31 PM New Patient: XR Knee (Lateral / Clarks / Tunnel / AP Standing with Marker) Result Date: 03/28/2025 1. Moderate osteoarthritis of the left knee. 2. Normal evaluation of the left hip. CRITICAL RESULT:No. COMMUNICATION: Per this written report. Drafted by Dhruv Arvizu MD on 03/28/2025 2:28 PM Final report signed by Dhruv Arvizu MD on 03/28/2025 2:31 PM Notes reviewed: outside physician and previous clinic Results of tests reviewed: previous radiographs and MRIs Assessment and plan: Hip pain, left Left knee pain, unspecified chronicity Orders Placed This Encounter New Patient: XR Hip (AP Pelvis Standing with Ronald Marker / Frog Leg Lateral Standing) New Patient: XR Knee (Lateral / Clarks / Tunnel / AP Standing with Marker) No follow-ups on file. Chelsea Moreira is a 64F w/ PMH R gluteal tendonitis s/p R glut med/min repair in 2017 with history, physical exam, and imaging findings consistent with a L partial medial meniscal tear and L gluteal tendonitis/bursitis. We discuss different management options including both operative vs non-operativemanagement with another glut repair vs. PRP injection in the left hip. We also discussed possible steroid/gel vs. PRP injections in the left knee. At this time patient elected to proceed with L knee steroid injections with plans to follow-up in 1 month for a gel injection, we will also aspirate herleft pre-patellar bursa to decrease her swelling. She also wished to proceed with a PRP injection in the left hip. This problem is a chronic problem with some progression . Minor procedure risk factors were discussed, (Injection site pain, infection, inflammation) and decision was made for procedure. Injected the left knee with steroid and aspirated bursal fluid from her pre-patellar bursa. Rx management per plan. Geovani Rod MD PGY-2, Orthopaedic Surgery [facility] Orthopaedic Trauma Service Pager: [phone] Orthopaedic Recon/Spine/Foot and Ankle Service Pager: [phone] [1] Past Medical History: Diagnosis Date Personal history of other malignant neoplasm of skin History of malignant neoplasm of skin [2] Past Surgical History: Procedure Laterality Date CHOLECYSTECTOMY 06/22/2005 COLECTOMY 01/31/22 GALLBLADDER SURGERY N/A Gallbladder Surgery from [facility] HIP SURGERY 06/2016 TUBAL LIGATION N/A Tubal Ligation from [facility] WRIST SURGERY November 2017 [3] Allergies Allergen Reactions Sulfa Drugs Hives and Rash [4] Current Outpatient Medications Medication Sig Dispense Refill cholecalciferol (Vitamin D-3) 1.25 MG (37798 UT) capsule estradiol (Estrace) 0.1 MG/GM vaginal cream Insert 1 gram vaginally 3 nights weekly lansoprazole (Prevacid) [address] capsule Take 1 capsule by mouth daily. Multiple Vitamin (Multi Vitamin) tablet 1 (one) time each day at the same time. omega-3 (Fish Oil) 1000 MG capsule Take 1 capsule by mouth daily with breakfast. simvastatin (Zocor) 20 MG tablet Take 1 tablet by mouth daily. No current facility-administered medications for this visit. Cosigned by Surya Zeng MD at 03/28/2025 5:13 PM EDT Associated attestation - Surya Zeng MD - 03/28/2025 5:13 PM EDT I saw and evaluated the patient with the resident/fellow. I discussed the case with the resident/fellow and agree with the findings and plan as documented. The patient's condition required a separately identifiable evaluation and management documented in this note which was a service above and beyond the usual preoperative and post-operative care associated with the procedure performed. Subjective: Chelsea Moreira is a 64 y.o. y/o female who comes in today for left knee pain and hip pain. I have reviewed and updated the patient's past medical history, past surgical history, social history, and family history. This is located both in the patient's note and their intake form that has been scanned into the medical record for today's visit. 14 point review of systems was reviewed per signed intake sheet and is otherwise negative except asnoted above. Objective: Body mass index is 25.6 kg/m??. 01/24/2016 12:41 PM 03/05/2016 1:42 PM 05/22/2016 3:04 PM 08/08/2016 9:30 AM 11/09/2018 8:41 AM 03/28/2025 2:22 PM Vitals Systolic 146 125 Diastolic 85 78 Heart Rate 63 71 Height (cm) 160 cm 160 cm 160 cm 160 cm 162.6 cm 157.5 cm Weight (kg) 53.07 kg 53.07 kg 53.07 kg 53.07 kg 54.3 kg 63.5 kg BMI 20.73 kg/m2 20.73 kg/m2 20.73 kg/m2 20.73 kg/m2 20.55 kg/m2 25.6 kg/m2 BSA (m2) 1.54 m2 1.54 m2 1.54 m2 1.54 m2 1.57 m2 1.67 m2 Visit Report Report My independent interpretation of radiographic testing shows: Left knee x-rays have been reviewed.She has some mild medial compartment joint space narrowing. Hip x-rays demonstrates otherwise normal evaluation. I have reviewed the left knee MRI that shows tearing of the medial meniscus. Left hip demonstrates partial tearing of the abductors. New Patient: XR Hip (AP Pelvis Standing with Ronald Marker / Frog Leg Lateral Standing) Result Date: 03/28/2025 1. Moderate osteoarthritis of the left knee. 2. Normal evaluation of the left hip. CRITICAL RESULT:No. COMMUNICATION: Per this written report. Drafted by Dhruv Arvizu MD on 03/28/2025 2:28 PM Final report signed by Dhruv Arvizu MD on 03/28/2025 2:31 PM New Patient: XR Knee (Lateral / Clarks / Tunnel / AP Standing with Marker) Result Date: 03/28/2025 1. Moderate osteoarthritis of the left knee. 2. Normal evaluation of the left hip. CRITICAL RESULT:No. COMMUNICATION: Per this written report. Drafted by Dhruv Arvizu MD on 03/28/2025 2:28 PM Final report signed by Dhruv Arvizu MD on 03/28/2025 2:31 PM Notes reviewed: outside physician Results of tests reviewed: previous radiographs Assessment and plan: Hip pain, left Left knee pain, unspecified chronicity Tear of medial meniscus of left knee, current, unspecified tear type, initial encounter Gluteal tendinitis of left buttock Arthritis of knee Patellar bursitis of left knee Orders Placed This Encounter Large Joint Injection Injection - Large Joint: L knee Injection - Large Joint: L patellar bursa New Patient: XR Hip (AP Pelvis Standing with Ronald Marker / Frog Leg Lateral Standing) New Patient: XR Knee (Lateral / Clarks / Tunnel / AP Standing with Marker) Ambulatory referral to Interventional Pain bupivacaine (Marcaine) 0.5 % injection 15 mg triamcinolone acetonide (Kenalog-40) injection 80 mg lidocaine (Xylocaine) 1 % injection 30 mg Follow up in about 4 weeks (around 04/25/2025) for Injection. For the left knee pain discussed treatment options to include steroid injection as well as gel injection. She would like to proceed with a steroid injection here today. Will plan to see her back in amonth to do the gel injection. She has evidence of prepatellar bursitis. Will plan to aspirate the bursa here today and placed a compressive dressing. Instructed to avoid kneeling activities to prevent recurrence. Left hip with greater trochanteric pain syndrome. We discussed treatment would could include PRP injection into the tendons themselves versus open repair like she had on the right hip. She would liketo explore the option of undergoing PRP to the tendons. If this otherwise then fail she would be a candidate for open repair similar to what she had done on the other side. Main downside is the recovery which is partial weight-bearing for 6 weeks and then typically takes about 6 months to fully recover. This problem is a chronic problem with some progression . Minor procedure risk factors were discussed, (Injection site pain, infection, inflammation) and decision was made for procedure. Rx management per plan. * Progress Notes - Surya Zeng MD - 03/28/2025 2:10 PM EDTAssociated Order(s): Injection - Large Joint: L knee Post-Procedure Diagnose(s): Arthritis of knee Patient ID: Chelsea Moreira is a 64 y.o. female. Encounter Diagnoses Name Primary? Hip pain, left Yes Left knee pain, unspecified chronicity Tear of medial meniscus of left knee, current, unspecified tear type, initial encounter Gluteal tendinitis of left buttock Arthritis of knee Injection - Large Joint: L knee Indications: pain Details: 22 G needle, anterior approach Medications: 15 mg bupivacaine 0.5 %; 30 mg lidocaine 1 %; 80 mg Kenalog-40 40 MG/ML Outcome: tolerated well, no immediate complications Procedure, treatment alternatives, risks and benefits explained, specific risks discussed (Risks include but are not limited to pain, bleeding, infection, failure to relieve symptoms). Consent was given by the patient. Immediately prior to procedure a time out was called to verify the correct patient, procedure, equipment, service support representative and site/side marked as required. Patient was prepped and draped in the usual sterile fashion. I was present for the entirety of the procedure(s). Surya Zeng MD Answers submitted by the patient for this visit: New Patient Appointment on 03/28/2025 2:10 PM with Surya Zeng MD Lower Extremity Injury Questionnaire (Submitted on 03/27/2025) Chief Complaint: Lower extremity pain inability to bear weight: No loss of motion: Yes loss of sensation: No muscle weakness: Yes tingling: No Leg/Knee/Foot Injury Questionnaire (Submitted on 03/27/2025) Chief Complaint: Lower extremity pain Incident occurred: more than 1 week ago Incident location: at home Injury mechanism: a twisting injury Pain location: left knee Pain quality: aching, shooting Pain - numeric: 2/10 Pain severity: mild inability to bear weight: No loss of motion: Yes loss of sensation: No muscle weakness: Yes numbness: No tingling: No Foreign body present: no foreign bodies Aggravated by: movement Treatments tried: acetaminophen, elevation, heat, ice, immobilization, NSAIDs, rest Improvement on treatment: moderate review of Systems (Submitted on 03/27/2025) fever: No Weight loss or gain: No diaphoresis: No fatigue: No appetite change: No hearing loss: No Nosebleeds: No postnasal drip: No Sore throat almost every day: No Ringing in the ears: No trouble swallowing: No Hoarseness: No eye pain: No Choking: No cough: No shortness of breath: No wheezing: No chest pain: No leg swelling: No palpitations: No Bruising or Bleeding easily: No polyuria: No Trouble starting or stopping urination: No dysuria: No hematuria: No urgency: No dizziness: No headaches: No syncope: No arthralgias: Yes back pain: Yes Swelling: Yes neck pain: No Seasonal Allergies: No Food Allergies: No itching: No * Progress Notes - Surya Zeng MD - 03/28/2025 2:10 PM EDTAssociated Order(s): Injection - Large Joint: L patellar bursa Post-Procedure Diagnose(s): Patellar bursitis of left knee Patient ID: Chelsea Moreira is a 64 y.o. female. Encounter Diagnoses Name Primary? Hip pain, left Yes Left knee pain, unspecified chronicity Tear of medial meniscus of left knee, current, unspecified tear type, initial encounter Gluteal tendinitis of left buttock Arthritis of knee Injection - Large Joint: L patellar bursa Indications: joint swelling Details: 21 G needle, anterolateral approach Aspirate: 8 mL blood-tinged Outcome: tolerated well, no immediate complications Consent was given by the patient. Immediately prior to procedure a time out was called to verify the correct patient, procedure, equipment, service support representative and site/side marked as required. Patient wasprepped and draped in the usual sterile fashion. I was present for the entirety of the procedure(s). Surya Zeng MD Answers submitted by the patient for this visit: New Patient Appointment on 03/28/2025 2:10 PM with Surya Zeng MD Lower Extremity Injury Questionnaire (Submitted on 03/27/2025) Chief Complaint: Lower extremity pain inability to bear weight: No loss of motion: Yes loss of sensation: No muscle weakness: Yes tingling: No Leg/Knee/Foot Injury Questionnaire (Submitted on 03/27/2025) Chief Complaint: Lower extremity pain Incident occurred: more than 1 week ago Incident location: at home Injury mechanism: a twisting injury Pain location: left knee Pain quality: aching, shooting Pain - numeric: 2/10 Pain severity: mild inability to bear weight: No loss of motion: Yes loss of sensation: No muscle weakness: Yes numbness: No tingling: No Foreign body present: no foreign bodies Aggravated by: movement Treatments tried: acetaminophen, elevation, heat, ice, immobilization, NSAIDs, rest Improvement on treatment: moderate review of Systems (Submitted on 03/27/2025) fever: No Weight loss or gain: No diaphoresis: No fatigue: No appetite change: No hearing loss: No Nosebleeds: No postnasal drip: No Sore throat almost every day: No Ringing in the ears: No trouble swallowing: No Hoarseness: No eye pain: No Choking: No cough: No shortness of breath: No wheezing: No chest pain: No leg swelling: No palpitations: No Bruising or Bleeding easily: No polyuria: No Trouble starting or stopping urination: No dysuria: No hematuria: No urgency: No dizziness: No headaches: No syncope: No arthralgias: Yes back pain: Yes Swelling: Yes neck pain: No Seasonal Allergies: No Food Allergies: No itching: No documented in this encounter Plan of Treatment Upcoming Encounters Date Type Department Care Team (Late st Contact Info) Description 04/21/2025 8:00 AM EDT Procedure Visit [facility] Interventional Pain Medicine [address] [facility] [place] [address] Boyd Christian MD [address] [facility] [address] [place] [address] 05/02/2025 3:10 PM EST Office Visit Medical Office Building [facility] [address], [address] [place] [address] Surya Zeng MD [address] [place] [address] Scheduled Orders Name Type Priority Associated Diagnoses Orde r Schedule Large Joint Injection Procedures Routine Tear of medial meniscus of left knee, current, unspecified tear type, initial encounter Arthritis of knee Expected: 04/28/2025, Expires: 09/29/2026 Scheduled Referrals Name Type Priority Associated Diagnoses Order Schedule Ambulatory referral to Interventional Pain Outpatient Referral Routine Gluteal tendinitis of left buttock Expected: 03/28/2025 (Approximate), Expires: 09/29/2026 documented as of this encounter Procedures Procedure Name Priority Date/Time Associated Diagnosis Comments GA ARTHROCENTESIS ASPIR&/INJ MAJOR JT/BURSA W/O US Routine 03/28/2025 2:10 PM EDT Patellar bursitis of left knee GA ARTHROCENTESIS ASPIR&/INJ MAJOR JT/BURSA W/O US Routine 03/28/2025 2:10 PM EDT Arthritis of knee documented in this encounter Results * New Patient: XR Knee (Lateral / Clarks / Tunnel / AP Standing with Marker) [...] Dhruv Arvizu MD on 03/28/2025 2:31 PM us Surya Zeng MD IMG XR PROCEDURES Final [...] Dhruv Arvizu MD on 03/28/2025 2:31 PM us Surya Zeng MD IMG XR PROCEDURES Final Resu lt * GA ARTHROCENTESIS ASPIR&/INJ MAJOR JT/BURSA W/O US (03/28/2025 2:10 PM EDT) Narrative Surya Zeng MD - 03/28/2025 2:10 PM EDT Surya Zeng MD 03/28/2025 5:09 PM Injection - Large Joint: L patellar bursa Indications: joint swelling Details: 21 G needle, anterolateral approach Aspirate: 8 mL blood-tinged Outcome: tolerated well, no immediate complications Consent was given by the patient. Immediately prior to procedure a time out was called to verify the correct patient, procedure, equipment, service support representative and site/side marked as required. Patient was prepped and draped in the usual sterile fashion. us Surya Zeng MD IN CLINIC/BEDSIDE ORDERABLES Final Result * GA ARTHROCENTESIS ASPIR&/INJ MAJOR JT/BURSA W/O US (03/28/2025 2:10 PM EDT) Narrative Surya Zeng MD - 03/28/2025 2:10 PM EDT Surya Zeng MD 03/28/2025 5:08 PM Injection - Large Joint: L knee Indications: pain Details: 22 G needle, anterior approach Medications: 15 mg bupivacaine 0.5 %; 30 mg lidocaine 1 %; 80 mg Kenalog-40 40 MG/ML Outcome: tolerated well, no immediate complications Procedure, treatment alternatives, risks and benefits explained, specific risks discussed (Risks include but are not limited to pain, bleeding, infection, failure to relieve symptoms). Consent was given by the patient. Immediately prior to procedure a time out was called to verify the correct patient, procedure, equipment, service support representative and site/side marked as required. Patient was prepped and draped in the usual sterile fashion. us Surya Zeng MD IN CLINIC/BEDSIDE ORDERABLES Final Result documented in this encounter Visit Diagnoses Diagnosis Hip pain, left- Primary Pain in joint, pelvic region and thigh Left knee pain, unspecified chronicity Tear of medial meniscus of left knee, current, unspecified tear type, initial encounter Gluteal tendinitis of left buttock Arthritis of knee Unspecified arthropathy, lower leg Patellar bursitis of left knee Hip pain, left Pain in joint, pelvic region and thigh Left knee pain, unspecified chronicity documented in this encounter Administered Medications Inactive Administered Medications - up to 3 most recent administrations Medication Order MAR Action Action Date Dose Rate Site bupivacaine (Marcaine) 0.5 % injection 15 mg 15 mg, Injection, Once PRN Procedure, 1 dose, Starting on 03/28/25 at 1410, Until 03/28/25 at 1410, RoutineIndications:Arthritis of knee Given 03/28/2025 2:10 PM EDT 15 mg lidocaine (Xylocaine) 1 % injection 30 mg 30 mg, Intra-articular, Once PRN Procedure, 1 dose, Starting on 03/28/25 at 1410, Until 03/28/25 at 1410, RoutineIndications:Arthritis of knee Given 03/28/2025 2:10 PM EDT 30 mg triamcinolone acetonide (Kenalog-40) injection 80 mg 80 mg, Intra-articular, Once PRN Procedure, 1 dose, Starting on 03/28/25 at 1410, Until 03/28/25 at 1410, RoutineIndications:Arthritis of knee Given 03/28/2025 2:10 PM EDT 80 mg documented in this encounter Additional Health Concerns Assessment Noted Time A fall risk assessment has been complete d for the patient 03/28/2025 2:25 PM EDT A Body Mass Index follow-up plan has been documented for the patient 03/28/2025 5:13 PM EDT documented as of this encounter Care Teams Treating Plant Pumper Relationship Specialty Start Date End Date Amrita Jsoe APRN [address] [place] [address] PCP - General 03/15/25 documented as of this encounter
--- OUTSIDE RECORDS SUMMARY | 2025-04-03 13:30 | XMS_ITS | Encounter Summary ---
Author Organization [facility] Address [address] [place] [address] Care Team Providers Care Curator Horticultural Museum Name Role Phone Amrita Jose APRN Primary Care Provider [phone]- [phone] Reason for Referral * Other Medical (Routine) - Authorized Specialty Diagnoses / Procedures Referred By Contac t Referred To Contact Pain Medicine Diagnoses Gluteal tendonitis of left buttock Procedures Injection - Platelet Rich Plasma Boyd Christian MD [address] [facility] [address] [place] [address] Phone: tel: fax: [facility] Interventional Pain Medicine [address] [place] [address] Phone: tel: fax: Referral ID Status Reason Start Date Expiration Date V isits Requested Visits Authorized [id number] Authorized 04/03/2025 10/03/2026 1 1 Reason for Visit * Reason Comments Consult * Consultation (Routine) - Closed Specialty Diagnoses / Procedures Referred By Contac t Referred To Contact Pain Medicine Diagnoses Gluteal tendinitis of left buttock Surya Zeng MD [address] [facility] [address] [place] [address] Phone: tel: fax: [facility] Interventional Pain Medicine [facility] [place] [address] Phone: tel: fax: Referral ID Status Reason Start Date Expiration Date V isits Requested Visits Authorized [id number] Closed Specialty Services Required 03/28/2025 09/27/2026 1 1 Encounter Details Date Type Department Care Team (Late st Contact Info) Description 04/03/2025 1:30 PM EDT Office Visit [facility] Interventional Pain Medicine [address] [facility] [place] [address] Boyd Christian MD [address] [facility] [address] [place] [address] Gluteal tendonitis of left buttock (Primary Dx) Social History Tobacco Use Types [...] Sign Reading Time Taken Comments Blood Pressure 135/79 04/03/2025 1:14 PM EDT Pulse 62 04/03/2025 1:14 PM EDT Temperature 36.6 C (97.8 F) 04/03/2025 1:14 PM EDT Respiratory Rate 18 04/03/2025 1:14 PM EDT Oxygen Saturation - - Inhaled Oxygen Concentration - - Weight 61.2 kg (135 lb) 04/03/2025 1:14 PM EDT Height 157.5 cm (5' 2 ) 04/03/2025 1:14 PM EDT Body Mass Index 24.69 04/03/2025 1:14 PM EDT documented in this encounter Miscellaneous Notes * Progress Notes - Boyd Christian MD - 04/03/2025 1:30 PM EDT Images from the original note were not included. Interventional Pain Medicine New Patient Note Subjective: Referring Physician: Surya Zeng MD [address] [facility] [address] [place] [address] Record Review: I personally reviewed referral records Chief Complaint: Consult History of Present Illness: Chelsea Moreira is a 64 y.o. female with a history of right gluteal tendonitis s/p R glut med/min repair in 2017 who comes in today for evaluation of left hip pain for possible PRP from Dr. Zeng. Site: left lateral hip area Onset: 2023 Severity: 2-3/10 Descriptors: dull, ache, burn, Aggravating Factors: direct pressure, standing, walking RelievingFactors: rest Associated Symptoms: none Functional Goals of Treatment: pain relief Current Medication: OTC Previous Medication: Aleve Tylenol Iburofen Previous Conservation Treatment: chiropractor heat ice medication trials modified activities PT, [facility] in [place], [place], last in March 2024, went for full 6 weeks d/c home with HEP HEP with daily exercises given post PT discharged and has now caused knee pain Previous Interventions/Consults: None Other Medical History reports that she has never smoked. She has never used smokeless tobacco. Review of Systems: CONSTITUTIONAL: denies fevers, chills HEENT: denies swallowing difficulties, sore throat CARDIOVASCULAR: denies chest pain, palpitations, syncope RESPIRATORY: denies shortness of breath, cough, wheezing GI: denies change in bowel habits, nausea, vomiting : denies change in bladder function, frequency, dysuria SKIN: denies rash, skin changes MSK: Per HPI NEURO: Per HPI PSYCH: Per HPI General Physical Exam: Constitutional Oriented to person, place, and time. Appears well-developed and well-nourished Head Normocephalic and atraumatic. Eyes Pupils are equal, round, and reactive to light. Neck Neck supple Cardiovascular Minimal to no peripheral edema, intact distal pulses Pulmonary/Chest Effort normal, no shortness of breath noted Neurological Alert and oriented to person, place, and time Skin Skin is warm and dry Psychiatric Normal mood and affect, behavior and judgment Neurologic & Musculoskeletal Exam Sensation Right Left L2: Proximal Anterior Thigh Normal Normal L3: Mid Anterior Thigh Normal Normal L4: Medial leg/foot, great toe (Saphenous n.) Normal Normal L5: Dorsum of mid foot Normal Normal S1: Lateral leg/foot, little toe, back of leg (Sural n.) Normal Normal Motor Strength Right Left L2: 5/5 5/5 L3: 5/5 5/5 L4: 510/24 L5: 5/10/24 S1: 10/24 10/24 Hip Exam Right Left FADIR - - Greater Trochanter tenderness - + Piriformis tenderness - - Gluteal tendon tenderness - + Imaging: Images of the following studies have been personally reviewed and my independent interpretation reveals as written: X-ray of the left hip from 03/28/2025 show normal femoroacetabular Assessment & Plan: Chelsea Moreira is a 64 y.o. female # left gluteal tendinopathy - Discussed platelet rich plasma injection under ultrasound to the left gluteal tendon/greater trochanteric bursa - Discussed that currently PRP is not covered by insurance thus we charge for the cost of the kit ($700) and then ability insurance for the injection itself which they would be responsible - Also discussed that after your injection you may experience discomfort for approximately a week or so. Avoid taking any antiinflammatory medications (NSAIDS such as ibuprofen or corticosteroids such as prednisone) for 6 weeks following your injection. Answers submitted by the patient for this visit: New Patient Appointment on 04/03/2025 1:30 PM with Boyd Christian MD Lower Extremity Injury Questionnaire (Submitted on 04/02/2025) Chief Complaint: Lower extremity pain Incident occurred: more than 1 week ago Incident location: at home Injury mechanism: unknown Pain location: left hip Pain quality: aching, burning Pain - numeric: 3/10 Pain course: intermittent tingling: Yes inability to bear weight: No loss of motion: No loss of sensation: No muscle weakness: Yes Foreign body present: no foreign bodies Aggravated by: movement, palpation, weight bearing documented in this encounter Plan of Treatment Upcoming Encounters Date Type Department Care Team (Late st Contact Info) Description 04/21/2025 8:00 AM EDT Procedure Visit [facility] Interventional Pain Medicine [address] [facility] [place] [phone] Boyd Christian MD [address] [facility] [address] [place] [address] 05/02/2025 3:10 PM EST Office Visit Medical [facility] [address] , [address] [place] [address] Surya Zeng MD [address] [place] [address] Scheduled Orders Name Type Priority Associated Diagnoses Orde r Schedule Injection - Platelet Rich Plasma Procedures Routine Gluteal tendonitis of left buttock 1 Occurrences starting 04/03/2025 until 10/05/2026 documented as of this encounter Visit Diagnoses Diagnosis Gluteal tendonitis of left buttock- Primary documented in this encounter Additional Health Concerns Assessment Noted Time A fall risk assessment has been complete d for the patient 04/03/2025 1:14 PM EDT A Body Mass Index follow-up plan has been documented for the patient 04/03/2025 2:07 PM EDT documented as of this encounter Care Teams Curator Horticultural Museum Relationship Specialty Start Date End Date Amrita Jose APRN [address] [place] [address] PCP - General 03/15/25 documented as of this encounter
--- NOTE | 2025-04-13 09:19 | XR_ITS ---
FINAL REPORT CLINICAL HISTORY: cough, wheezing COMPARISON: none FINDINGS: No acute pulmonary density is evident. There is no evidence of effusion or other pleural disease. The mediastinum has a normal appearance. The cardiac silhouette is unremarkable. IMPRESSION: Unremarkable chest exam. Reviewed, Interpreted and Dictated by Bee Simpson MD Transcribed by Shonna Mckeon Authenticated and [facility]
--- OUTSIDE RECORDS SUMMARY | 2025-04-13 09:21 | XMS_ITS | Encounter Summary ---
Author Organization Healthcare Address [address] [place] [address] Care Team Providers Care L Tacker Name Role Phone Amrita Jose Pradip PA Primary Care Provider +1- [phone] Encounter Details Date Type Department Care Team (Latest Contact Info) Description 03/28/2025 Travel Social History Tobacco Use Types Packs/Day [...] Description 04/21/2025 8:00 AM EDT Procedure Visit [facility] Inter[facility] Medicine [address] [facility] [place] [address] Boyd Christian MD [address] [facility] [address] [place] [address] 05/02/2025 3:10 PM EST Office Visit Medical Office Building [facility] [address] [facility], [address] [place] [address] Surya Zeng MD [address] [facility] [address] [place] [address] documented as of this encounter Visit Diagnoses Not on filedocumented in this encounter Additional Health Concerns Assessment Noted Time A fall risk assessment has been complete d for the patient 03/28/2025 2:25 PM EDT A Body Mass Index follow-up plan has been documented for the patient 03/28/2025 5:13 PM EDT documented as of this encounter Care Teams L Tacker Relationship Specialty Start Date End Date Amrita Jose APRN [address] [place] [address] PCP - General 03/15/25 documented as of this encounter
--- OUTSIDE RECORDS SUMMARY | 2025-04-13 09:21 | XMS_ITS | Encounter Summary ---
Author Organization [facility] Address [address] [place] [address] Care Team Providers Care Sheet Rock Installation Helper Name Role Phone Amrita Jose APRN Primary Care Provider +1- [phone] Encounter Details Date Type Department Care Team (Latest Contact Info) Description 03/27/2025 Travel Social History Tobacco Use Types Packs/Day [...] Description 04/21/2025 8:00 AM EDT Procedure Visit [facility] Interventional Pain Medicine [address] [place] [address] Boyd Christian MD [address] [facility] [address] [place] [address] 05/02/2025 3:10 PM EST Office Visit Medical Office Building [facility] [address] [facility], [address] [place] [address] Surya Zeng MD [address] [facility] [address] [place] [address] documented as of this encounter Visit Diagnoses Not on filedocumented in this encounter Care Teams Sheet Rock Installation Helper Relationship Specialty Start Date End Date Amrita Jose APRN [address] [place] [address] PCP - General 03/15/25 documented as of this encounter
--- OUTSIDE RECORDS SUMMARY | 2025-04-13 09:21 | XMS_ITS | Encounter Summary ---
Author Organization [facility] Address [address] [place] [address] Care Team Providers Care Drafter Plumbing Name Role Phone Lilian Ochoa APRN Primary Care Provider [phone] -[phone] Amrita Jose APRN Primary Care Provider +1- [phone] Encounter Details Date Type Department Care Team (Late Contact Info) Description 04/07/2024 Orders Only External Location [address] [place] [address] Provider, External Social History Tobacco Use Types Packs/Day Years Used Date Smoking Tobacco: Never Comments Unknown Sex and Gender Information Value Date Recorded Sex Assigned at Not on file Legal Sex Female 6:56 PM EDT Gender Identity Not on file Sexual Orientation Not on file documented as of this encounter Plan of Treatment Upcoming Encounters Date Type Department Care Team (Late Contact Info) Description 04/21/2025 8:00 AM EDT Procedure Visit [facility] Interventional Pain Medicine [address] [place] [address] Boyd Christian MD [address] [facility] [address] [place] [address] 05/02/2025 3:10 PM EST Office Visit Medical Office Building [facility] [address] [facility], [address] [place] [address] Surya Zeng MD [address] [facility] [address] [place] [address] documented as of this encounter Procedures Procedure Name Priority Date/Time Associated Diagnosis Comments MR OUTSIDE IMAGES 04/07/2024 3:52 PM EDT documented in this encounter Results * MR transfer of outside films (04/07/2024 3:52 PM EDT) Anatomical Region Laterality Modality Magnetic Resonan ce 04/07/2024 3:52 PM EDT us External Provider IMG MRI PROCEDURES Edited Resu lt - Final documented in this encounter Visit Diagnoses Not on filedocumented in this encounter Care Teams Drafter Plumbing Relationship Specialty Start Date End Date Lilian Ochoa APRN [facility] [place] [address] PCP - General 11/02/20 03/14/25 Amrita Jose APRN [address] [place] [address] PCP - General 03/15/25 documented as of this encounter
--- OUTSIDE RECORDS SUMMARY | 2025-04-13 09:21 | XMS_ITS | Encounter Summary ---
Author Organization [facility] Address [address] [place] [address] Care Team Providers Care High Pressure Boiler Operator Name Role Phone Lilian Ochoa APRN Primary Care Provider [phone] -[phone] Amrita Jose APRN Primary Care Provider +1- [phone] Encounter Details Date Type Department Care Team (Late Contact Info) Description 04/07/2024 Orders Only External Location [address] [place] [address] Provider, External Social History Tobacco Use Types [...] Description 04/21/2025 8:00 AM EDT Procedure Visit [facility] Interventional Pain Medicine [address] [place] [address] Boyd Christian MD [address] [facility] [address] [place] [address] 05/02/2025 3:10 PM EST Office Visit Medical Office Building [facility] [address] [facility], [address] [place] [address] Surya Zeng MD [address] [facility] [address] [place] [address] documented as of this encounter Procedures Procedure Name Priority Date/Time Associated Diagnosis Comments MR MSK OUTSIDE IMAGES 04/07/2024 4:00 PM EDT documented in this encounter Results * MR MSK OUTSIDE IMAGES (04/07/2024 4:00 PM EDT) Anatomical Region Laterality Modality Magnetic Resonan ce 04/07/2024 4:00 PM EDT us External Provider IMG MRI PROCEDURES Edited Resu lt - Final documented in this encounter Visit Diagnoses Not on filedocumented in this encounter Care Teams High Pressure Boiler Operator Relationship Specialty Start Date End Date Lilian Ochoa APRN [address] [place] [address] PCP - General 11/02/20 03/14/25 Amrita Jose APRN [address] [place] [address] PCP - General 03/15/25 documented as of this encounter
--- OUTSIDE RECORDS SUMMARY | 2025-04-13 09:21 | XMS_ITS | Encounter Summary ---
Author Organization [facility] Address [address] [place] [address] Care Team Providers Care Bottling Equipment Sales Representative Name Role Phone Amrita Jose Pradip PA Primary Care Provider +1- [phone] Encounter Details Date Type Department Care Team (Latest Contact Info) Description 04/02/2025 Travel Social History Tobacco Use Types Packs/Day [...] Description 04/21/2025 8:00 AM EDT Procedure Visit [facility] Interventional Pain Medicine [address] [facility] [place] [address] Boyd Christian MD [address] [facility] [address] [place] [address] 05/02/2025 3:10 PM EST Office Visit Medical Office Building [facility] [address] [facility], [address] [place] [address] Surya Zeng MD [address] [facility] [address] [place] [address] documented as of this encounter Visit Diagnoses Not on filedocumented in this encounter Additional Health Concerns Assessment Noted Time A fall risk assessment has been complete d for the patient 03/28/2025 2:25 PM EDT A Body Mass Index follow-up plan has been documented for the patient 03/28/2025 5:13 PM EDT documented as of this encounter Care Teams Bottling Equipment Sales Representative Relationship Specialty Start Date End Date Amrita Jose APRN [address] [place] [address] PCP - General 03/15/25 documented as of this encounter
--- OUTSIDE RECORDS SUMMARY | 2025-04-13 09:21 | XMS_ITS | Encounter Summary ---
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 Not on file Not on file documented as of this encounter Plan of Treatment Upcoming Encounters Date Type Department Care Team (Late st Contact Info) Description 03/19/2026 11:00 AM EDT Office Visit [facility] CARDIOTHORACIC SURGERY [address] [address] Stacie Wilder, PUBLIC SAFETY DISPATCHER [address] [address] documented as of this encounter Visit Diagnoses Not on filedocumented in this encounter Care Teams Data Warehouse Specialist Relationship Specialty Start Date End Date Amrita Jose APRN [address] [place] [address] PCP - General Internal Medicine 11/10/24 documented as of this encounter
--- OUTSIDE RECORDS SUMMARY | 2025-04-13 09:21 | XMS_ITS | Encounter Summary ---
Author Organization [facility] Address [address] [place] [address] Care Team Providers Care Ceramic Capacitor Processor Name Role Phone Amrita Jose APRN Primary Care Provider [phone] Encounter Details Date Type Department Care Team (Late st Contact Info) Description 01/01/2022 MDT Assessment [facility] HEMATOLOGY & ONCOLOGY [address] [facility] [address] [place] [address] Andrea Barker MD [address] [facility] [address] [place] [address] Social History Tobacco Use Types Packs/Day Years [...] Description 03/19/2026 11:00 AM EDT Office Visit [facility] CARDIOTHORACIC SURGERY [address] [facility] [address] [place] [address] Stacie Wilder, CHANNEL DEVELOPMENT MANAGER [address] [address] documented as of this encounter Visit Diagnoses Not on filedocumented in this encounter Additional Health Concerns Infection Onset Date Last Indicated Resolved Time COVID Screen (preop/placement) 01/28/2022 01/28/2022 01/28/2022 4:53 PM EDT documented as of this encounter Care Teams Ceramic Capacitor Processor Relationship Specialty Start Date End Date Amrita Jose APRN [address] [place] [address] PCP - General Internal Medicine 11/10/24 documented as of this encounter
--- OUTSIDE RECORDS SUMMARY | 2025-04-13 09:22 | XMS_ITS | Referral Summary ---
Author Organization [employer] ([place], [place], [place], [place]) Address [address] [place] [address] Care Team Providers Care Apple Solutions Consultant Name Role Phone Amrita Jose APRN Primary [...] Date Jv rded Speak language other than Icelandic at home Not on file 07/11/2023 Want [...] file Insurance BLUE CROSS/BLUE SHIELD Care Teams Apple Solutions Consultant Relationship Specialty Start Date End Date Amrita Jose, TAPER/FINISHER [address] [id number] PCP - General Nurse Practitioner 11/12/22
--- OUTSIDE RECORDS SUMMARY | 2025-04-13 09:22 | XMS_ITS | Clinical Summary ---
Author Organization [employer] ([place], [place], [place], [place]) Address [address] [place] [address] Care Team Providers Care Customer Care Professional Name Role Phone JoseAmrita lindsay EMBER Primary [...] Date Jv rded Speak language other than Nigerien at home Not on file 07/11/2023 Want [...] 2034 Insurance BLUE CROSS/BLUE SHIELD Care Teams Customer Care Professional Relationship Specialty Start Date End Date Amrita Jose APRN [address] [address] PCP - General Nurse Practitioner 11/12/22
--- OUTSIDE RECORDS SUMMARY | 2025-04-13 09:22 | XMS_ITS | Encounter Summary ---
Author Organization Healthcare Address [address] [place] [address] Care Team Providers Care Letter Of Credit Document Examiner Name Role Phone Amrita Jose Pradip PA Primary Care Provider +1- [phone] Encounter Details Date Type Department Care Team (Latest Contact Info) Description 04/03/2025 Travel Social History Tobacco Use Types Packs/Day [...] Description 04/21/2025 8:00 AM EDT Procedure Visit [facility] Interventional Pain Medicine [address] [facility] [place] [address] Boyd Christian MD [address] [facility] [address] [place] [address] 05/02/2025 3:10 PM EST Office Visit Medical Office Building [facility] [address] [facility], [address] [place] [address] Surya Zeng MD [address] [facility] [address] [place] [address] documented as of this encounter Visit Diagnoses Not on filedocumented in this encounter Additional Health Concerns Assessment Noted Time A fall risk assessment has been complete d for the patient 04/03/2025 1:14 PM EDT A Body Mass Index follow-up plan has been documented for the patient 04/03/2025 2:07 PM EDT documented as of this encounter Care Teams Letter Of Credit Document Examiner Relationship Specialty Start Date End Date Amrita Jose APRN [address] [place] [address] PCP - General 03/15/25 documented as of this encounter
--- OUTSIDE RECORDS SUMMARY | 2025-04-13 09:22 | XMS_ITS | Clinical Summary ---
[facility] Address [address] [place] [address] Care Team Providers Care Telephonic Case Manager Name Role Phone Amrita Jose EMBER Primary Care Provider [phone] Allergies Active Allergy Reactions Criticality Noted Date Comments Doxycycline Headache High 01/09/2022 Sulfa Antibiotics Hives Low 05/28/2016 Medications lansoprazole (PREVACID) 30 MG capsule Take 1 capsule by mouth Daily. 7 Active meloxicam (MOBIC) 15 MG tablet Take 1 tablet by mouth Daily. 2 Active estradiol (ESTRACE) 0.1 MG/GM vaginal cream Insert 2 g into the vagina 3 (Three) Times a Week if Needed. Active simvastatin (ZOCOR) 20 MG tablet Take 1 tablet by mouth Every Night. Active [place]-3 Fatty Acids (fish oil) 1000 MG capsule capsule Take 1 capsule by mouth Daily With Breakfast. Active multivitamin (MULTI VITAMIN DAILY PO) Take 1 tablet by mouth Daily. Active Cholecalciferol (Vitamin D) 1.25 MG (01324 UT) capsule Active Romosozumab-aqqg (Evenity) 105 MG/1.17ML subcutaneous solution Inject 2.34 mL by subcutaneous route for 30 days. 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 Status post colon resection 01/31/2022 Colon cancer 01/31/2022 Increased risk of breast cancer - elevated STEPHANIE score 06/27/2019 Overview (06/27/2019): 06/27/2019 - counseled SERM use and declined Cystocele, rectocele and uterine prolapse 2019 GERD 06/22/2017 High cholesterol 02/20/2017 Annual SEISMOLOGY TEACHER exam in 01/01/2017 Overview (07/20/2019): SCREENING TESTS Year 2011 [...] Encounters Date Type Department Care Team Description 03/16/2025 9:30 AM EDT Office Visit [facility] CARDIOTHORACIC SURGERY [address] [facility] [address] [place] [address] Stacie Wilder APRN Acquired dilation of ascending aorta and aortic root (Primary Dx) 03/16/2025 Travel 01/26/2025 11:37 AM EDT - 01/26/2025 11:59 PM EDT Hospital Encounter [facility] [address] [place] [address] Stacie Wilder APRN Acquired dilation of ascending aorta and aortic [...] 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 file Not on file Last Filed Vital Signs Vital Sign Reading Time Taken Comments Blood Pressure 114/62 03/16/2025 9:29 AM EDT rit gh arm Pulse 67 03/16/2025 9:28 AM EDT Temperature 37 C (98.6 F) 03/16/2025 9:28 AM EDT Respiratory Rate 20 02/02/2022 12:11 PM EDT Oxygen Saturation 96% 03/16/2025 9:28 AM EDT Inhaled Oxygen Concentration - - Weight 63 kg (139 lb) 03/16/2025 9:28 AM EDT Height 157.5 cm (5' 2 ) 03/16/2025 9:28 AM EDT p er pt Body Mass Index 25.42 03/16/2025 9:28 AM EDT Plan of Treatment Upcoming Encounters Date Type Department Care Team (Late st Contact Info) Description 03/19/2026 11:00 AM EDT Office Visit [facility] CARDIOTHORACIC SURGERY [address] [address] Stacie Wilder, TECHNICIAN SUBMARINE CABLE EQUIPMENT [address] [address] Health Maintenance Due Date Last Done Comments LIPID PANEL 1959 COVID-19 Vaccine (#1) 1964 Pneumococcal Vaccine 50+ (1 of 1 - PCV) 2009 ZOSTER VACCINE (1 of 2) 2009 ANNUAL WELLNESS VISIT 05/28/2016 HEPATITIS C SCREENING 05/28/2016 PT PLAN OF CARE 12/21/2017 INFLUENZA VACCINE 01/20/2025 03/31/2019 DXA SCAN 08/03/2026 08/03/2024 MAMMOGRAM 11/15/2026 11/15/2024, 10/21, 11/09/2023, Additional history exists TDAP/TD VACCINES (2 - Td or Tdap) 03/31/2029 019 COLONOSCOPY Discontinued 08/22/2019, 11/21/2011 COLORECTAL CANCER SCREENING Discontinued COLOGUARD Discontinued COLON CANCER SCREENING 5 YEA R SIGMOIDOSCOPY Discontinued CT COLONOGRAPHY Discontinued FECAL OCCULT BLOOD TEST Discontinued FIT Testing (1 year) Discontinued Medical Devices Implanted Type Area Application Technical Designer Device Identifier Shelf Expiration Date Model / Serial / Lot Reload [place] Endopath Gst 45mm Wht - [id number] Implanted:Qty : 1 on 01/31/2022 by Armaan Dejesus MD at [facility] Implant N/A: Abdomen [employer] 09/20/2023 [id number] / / [id number] Reload [place] Flex Gst 45mm Grn - [id number] Implanted:Qty : 3 on 01/31/2022 by Armaan Dejesus MD at [facility] Implant N/A: Abdomen [employer] 09/19/2024 [id number] / / [id number] Implant Description:Hip implant pt t cathleenks , wrist implant pt thinks Procedures Procedure [...] MD 01/26/2025 4:54 PM EDT Workstation ID: [id number] Narrative 01/26/2025 4:[address] ANGIOGRAM [...] MD 01/26/2025 4:54 PM EDT Workstation ID: [id number] Stacie Mccormick Meño TECHNICIAN SUBMARINE CABLE EQUIPMENT IMG CT ORDERABLES Final Res ult * [...] of architectural distortion are present. Ragini Perales TECHNICIAN SUBMARINE CABLE EQUIPMENT IMG MAMMOGRAPHY ORDERA BLES Final Result from Last 3 Months or Most Recently Relevant to Health Maintenance Insurance [facility] MEDICARE A & B Advance [...] Release to patient: Routine Release Care Teams Telephonic Case Manager Relationship Specialty Start Date End Date Amrita Jose APRN [address] [id number] PCP - General Internal Medicine 11/10/24
--- OUTSIDE RECORDS SUMMARY | 2025-04-13 09:22 | XMS_ITS | Encounter Summary ---
Author Organization [facility] Address [address] [place] [address] Care Team Providers Care Director Informatics Name Role Phone Lilian Ochoa APRN Primary Care Provider [phone] Amrita Jose APRN Primary Care Provider +1- [phone] Encounter Details Date Type Department Care Team (Late Contact Info) Description 01/02/2025 Orders Only External Location [address] [place] [address] Provider, External Social History Tobacco Use Types [...] Description 04/21/2025 8:00 AM EDT Procedure Visit [facility] Interventional Pain Medicine [address] [place] [address] Boyd Christian MD [address] [facility] [address] [place] [address] 05/02/2025 3:10 PM EST Office Visit Medical Office Building [facility] [address] [facility], [address] [place] [address] Surya Zeng MD [address] [facility] [address] [place] [address] documented as of this encounter Procedures Procedure Name Priority Date/Time Associated Diagnosis Comments MR OUTSIDE IMAGES 01/02/2025 8:26 AM EDT documented in this encounter Results * MR transfer of outside films (01/02/2025 8:26 AM EDT) Anatomical Region Laterality Modality Magnetic Resonan ce 01/02/2025 8:26 AM EDT us External Provider IMG MRI PROCEDURES Edited Resu lt - Final documented in this encounter Visit Diagnoses Not on filedocumented in this encounter Care Teams Director Informatics Relationship Specialty Start Date End Date Lilian Ochoa APRN [facility] [place] [address] PCP - General 11/02/20 03/14/25 Amrita Jose APRN [address] [place] [address] PCP - General 03/15/25 documented as of this encounter
--- OUTSIDE RECORDS SUMMARY | 2025-04-13 09:22 | XMS_ITS | Clinical Summary ---
Author Organization [facility] Address [address] [place] [address] Care Team Providers Care Human Resources Coordinator Name Role Phone Amrita Jose APRN Primary Care Provider +1- [phone] Allergies Active Allergy Reactions Criticality Noted Date Comments Sulfa Drugs Hives,Rash Medium 05/28/2016 Medications simvastatin (Zocor) 20 MG tablet Take 1 tablet by mouth daily. Active lansoprazole (Prevacid) [address] capsule Take 1 capsule by mouth daily. Active cholecalciferol (Vitamin D-3) 1.25 MG (78879 UT) capsule Active Multiple Vitamin (Multi Vitamin) tablet 1 (one) time each day at the same time. Active omega-3 (Fish Oil) 1000 MG capsule Take 1 capsule by mouth daily with breakfast. Active estradiol (Estrace) 0.1 MG/GM vaginal cream Insert 1 gram vaginally 3 nights weekly 4 Active romosozumab-aqq g (Evenity) 105 MG/1.17ML solution prefilled syringe 5 Active Hospital, Clinic, or Other Facility Administered Medication Ordered Dose Route Frequency Start Date End Date Status bupivacaine (Marcaine) 0.5 % injection 15 mgIndications:Arthri tis of knee 15 mg IJ Once PRN Procedure 03/28/2025 03/28/2025 Ended triamcinolone acetonide (Kenalog-40) injection 80 mgIndications:Arthri tis of knee 80 mg IX Once PRN Procedure 03/28/2025 03/28/2025 Ended lidocaine (Xylocaine) 1 % injection 30 mgIndications:Arthri tis of knee 30 mg IX Once PRN Procedure 03/28/2025 03/28/2025 Ended Active Problems No known active problems Encounters Date Type Department Care Team Description 04/03/2025 1:30 PM EDT Office Visit [facility] Interventional Pain Medicine [address] [place] [address] Boyd Christian MD Gluteal tendonitis of left buttock (Primary Dx) 04/03/2025 Travel 04/02/2025 Travel 03/28/2025 2:10 PM EDT Office Visit Medical Office Building Surgery Sp[facility] [address] [facility], [address] [place] [address] Surya Zeng MD Hip pain, left (Primary Dx); Left knee pain, unspecified chronicity; Tear of medial meniscus of left knee, current, unspecified tear type, initial encounter; Gluteal tendinitis of left buttock; Arthritis of knee; Patellar bursitis of left knee 03/28/2025 2:02 PM EDT - 03/28/2025 11:59 PM EDT Hospital Encounter Medical Office Building Radiology [address] [place] [phone] Hip pain, left; Left knee pain, unspecified chronicity Discharge Disposition: Home or Self Care 03/28/2025 Travel 03/27/2025 Travel 03/13/2025 Orders Only External Location [address] [place] [address] Provider, External 03/13/2025 Orders Only External Location [address] [place] [address] Provider, External from Last 3 Months Family History Medical History Relation Name Comments Cancer Maternal Grandfather Jose Luis Cancer Mother Luz Elena Cancer Paternal Grandfather Jose Luis Relation Name Status Comments Maternal Grandfather Jose Luis Mother Luz Elena Paternal Grandfather Jose Luis Social History Tobacco Use Types Packs/Day Years [...] 18 04/03/2025 1:14 PM EDT Oxygen Saturation 98% 03/28/2025 2:22 PM EDT Inhaled Oxygen Concentration - - Weight 61.2 kg (135 lb) 04/03/2025 1:14 PM EDT Height 157.5 cm (5' 2 ) 04/03/2025 1:14 PM EDT Body Mass Index 24.69 04/03/2025 1:14 PM EDT Plan of Treatment Upcoming Encounters Date Type Department Care Team (Late st Contact Info) Description 04/21/2025 8:00 AM EDT Procedure Visit [facility] Interventional Pain Medicine [address] [facility] [place] [address] Boyd Christian MD [address] [facility] [address] [place] [address] 05/02/2025 3:10 PM EST Office Visit Medical Office Building Surgery [facility] [address] [facility], [address] [place] [address] Surya Zeng MD [address] [place] [address] Health Maintenance Due Date Last Done Comments [facility]-Depression Screening 1959 [facility]-Hepatitis C Screening 1959 [facility]-Medicare Annual Wellness (AWV) 1959 [facility]-Infant/Child/Adol SDOH Screenings 1959 [facility]-PDIQF-32 Vaccine (#1) 1964 [facility]- SDOH Screenings 1977 [facility]-Adult SDOH Screenings 1977 [facility]-Pap Smear 1980 [facility]-Cervical Cancer Screening 1989 [facility]-HPV/Cotest 1989 [facility]-Pneumococcal Vaccine: 50+ Years (1 of 1 - PCV) 2009 [facility]-Zoster Vaccines (1 of 2) 2009 [facility]-RSV Vaccine: 60+ Years or (1 - Risk 60-74 years 1-dose series) 2019 [facility]-Influenza Vaccine (#1) 2025 03/31/2019 [facility]-Bone Density Scan 08/03/2026 08/03/2024 [facility]-Breast Cancer Screening 11/10/2026 11/10/2024, 11/10/2024, 11/09/2023, Additional history exists [facility]-DTaP,Tdap,and Td Vaccines (2 - Td or Tdap) 03/31/2029 03/31/2019 HPV Vaccines Aged Out No longer eligi ble based on patient's age to complete this topic [facility]-HIB Vaccines Aged Out No longer e ligible based on patient's age to complete this topic [facility]-Hepatitis A Vaccines Aged Out No longer eligible based on patient's age to complete this topic [facility]-IPV Vaccines Aged Out No longer e ligible based on patient's age to complete this topic [facility]-Rotavirus Vaccines Aged Out No lo nger eligible based on patient's age to complete this topic Procedures Procedure Name Priority Date/Time Associated Diagnosis Comments XR KNEE LEFT 4+ VIEWS Routine 03/28/2025 2:14 PM EDT Left knee pain, unspecified chronicity XR HIP LEFT 2 OR 3 VIEWS Routine 03/28/2025 2:14 PM EDT Hip pain, left VT ARTHROCENTESIS ASPIR&/INJ MAJOR JT/BURSA W/O US Routine 03/28/2025 2:10 PM EDT Patellar bursitis of left knee VT ARTHROCENTESIS ASPIR&/INJ MAJOR JT/BURSA W/O US Routine 03/28/2025 2:10 PM EDT Arthritis of knee MR OUTSIDE IMAGES 03/13/2025 8:5 1 AM EDT MR NEURO OUTSIDE IMAGES 03/13/2025 8:51 AM EDT from Last 3 Months Results * New Patient: XR Knee (Lateral / [place] / Tunnel / AP Standing with Marker) [...] IMG XR PROCEDURES Final Resu lt * VT ARTHROCENTESIS ASPIR&/INJ MAJOR JT/BURSA W/O US (03/28/2025 [...] to verify the correct patient, procedure, equipment, account support rep and site/side marked as required. Patient was prepped and draped in the usual sterile fashion. Surya Zeng MD IN CLINIC/BEDSIDE ORDERABLES Final Result * VT ARTHROCENTESIS ASPIR&/INJ MAJOR JT/BURSA W/O US (03/28/2025 [...] to verify the correct patient, procedure, equipment, account support rep and site/side marked as required. Patient was prepped and draped in the usual sterile fashion. us Surya Zeng MD IN CLINIC/BEDSIDE ORDERABLES Final Result * MR transfer of outside films (03/13/2025 8:51 AM EDT) Anatomical Region Laterality Modality Magnetic Resonan ce 03/13/2025 8:51 AM EDT us External Provider IMG MRI PROCEDURES Edited Resu lt - Final * MR NEURO OUTSIDE IMAGES (03/13/2025 8:51 AM EDT) Anatomical Region Laterality Modality Magnetic Resonan ce 03/13/2025 8:51 AM EDT us External Provider IMG MRI PROCEDURES Edited Resu lt - Final from Last 3 Months Insurance MEDICARE HUMAN Care Teams Human Resources Coordinator Relationship Specialty Start Date End Date Amrita Jose APRN [address] [place] [address] [phone] (work) PCP - General 03/15/25
--- OUTSIDE RECORDS SUMMARY | 2025-04-13 09:22 | XMS_ITS | Encounter Summary ---
Author Organization [facility] Address [address] [place] [address] Care Team Providers Care Data Management Analyst Name Role Phone Lilian Ochoa APRN Primary Care Provider [phone] Amrita Jose APRN Primary Care Provider [phone]- [phone] Encounter Details Date Type Department Care Team (Late Contact Info) Description 03/13/2025 Orders Only External Location [address] [place] [address] Provider, External Social History Tobacco Use Types [...] Description 04/21/2025 8:00 AM EDT Procedure Visit [facility] Interventional Pain Medicine [address] [place] [address] Boyd Christian MD [address] [facility] [address] [place] [address] 05/02/2025 3:10 PM EST Office Visit Medical Office Building Surgery Spine & Joint [address] [facility], [address] [place] [address] Surya Zeng MD [address] [facility] [address] [place] [address] documented as of this encounter Procedures Procedure Name Priority Date/Time Associated Diagnosis Comments MR NEURO OUTSIDE IMAGES 03/13/2025 8:51 AM EDT documented in this encounter Results * MR NEURO OUTSIDE IMAGES (03/13/2025 8:51 AM EDT) Anatomical Region Laterality Modality Magnetic Resonan ce 03/13/2025 8:51 AM EDT us External Provider IMG MRI PROCEDURES Edited Resu lt - Final documented in this encounter Visit Diagnoses Not on filedocumented in this encounter Care Teams Data Management Analyst Relationship Specialty Start Date End Date Lilian Ochoa APRN [facility] [place] [address] PCP - General 11/02/20 03/14/25 Amrita Jose APRN [address] [place] [address] PCP - General 03/15/25 documented as of this encounter
--- OUTSIDE RECORDS SUMMARY | 2025-04-13 09:22 | XMS_ITS | Encounter Summary ---
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 Not on file documented as of this encounter Plan of Treatment Upcoming Encounters Date Type Department Care Team (Late st Contact Info) Description 03/19/2026 11:00 AM EDT Office Visit [facility] CARDIOTHORACIC SURGERY [address] [place] [address] [address] [place] [address] Stacie Wilder CYTOPATHOLOGIST [address] [place] [address] documented as of this encounter Visit Diagnoses Not on filedocumented in this encounter Care Teams Api Architect Relationship Specialty Start Date End Date Amrita Jose, CYTOPATHOLOGIST [address] [place] [address] PCP - General Internal Medicine 11/10/24 documented as of this encounter
--- OUTSIDE RECORDS SUMMARY | 2025-04-13 09:22 | XMS_ITS | Encounter Summary ---
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 My contact information was included in the [employer] message. * Theodora Quiroga - 11/07/2024 10:34 AM EDT I sent the patient a [employer] message asking for a call to discuss assessment results. documented in this encounter Plan of Treatment Upcoming Encounters Date Type Department Care Team (Late st Contact Info) Description 03/19/2026 11:00 AM EDT Office Visit [facility] CARDIOTHORACIC SURGERY [address] [address] Stacie Wilder APRN [address] [address] documented as of this encounter Visit Diagnoses Not on filedocumented in this encounter Care Teams Appian Developer Relationship Specialty Start Date End Date Amrita Jose APRN [address] [place] [address] PCP - General Internal Medicine 11/10/24 documented as of this encounter
--- OUTSIDE RECORDS SUMMARY | 2025-04-13 09:22 | XMS_ITS | Encounter Summary ---
Author Organization [facility] Address [address] [place] [address] Care Team Providers Care Mine Engineering Superintendent Name Role Phone Lilian Ochoa APRN Primary Care Provider [phone] Amrita Jose APRN Primary Care Provider [phone]- [phone] Encounter Details Date Type Department Care Team (Late Contact Info) Description 03/13/2025 Orders Only External Location [address] [place] [address] Provider, External Social History Tobacco Use Types [...] Description 04/21/2025 8:00 AM EDT Procedure Visit [facility] Interventional Pain Medicine [address] [place] [address] Boyd Christian MD [address] [facility] [address] [place] [address] 05/02/2025 3:10 PM EST Office Visit Medical Office Building Surgery Spine & Joint [address] [facility], [address] [place] [address] Surya Zeng MD [address] [facility] [address] [place] [address] documented as of this encounter Procedures Procedure Name Priority Date/Time Associated Diagnosis Comments MR OUTSIDE IMAGES 03/13/2025 8:51 AM EDT documented in this encounter Results * MR transfer of outside films (03/13/2025 8:51 AM EDT) Anatomical Region Laterality Modality Magnetic Resonan ce 03/13/2025 8:51 AM EDT us External Provider IMG MRI PROCEDURES Edited Resu lt - Final documented in this encounter Visit Diagnoses Not on filedocumented in this encounter Care Teams Mine Engineering Superintendent Relationship Specialty Start Date End Date Lilian Ochoa APRN [facility] [place] [address] PCP - General 11/02/20 03/14/25 Amrita Jose APRN [address] [place] [address] PCP - General 03/15/25 documented as of this encounter
--- OUTSIDE RECORDS SUMMARY | 2025-04-13 09:22 | XMS_ITS | Encounter Summary ---
Author Organization [facility] Address [address] [place] [address] Care Team Providers Care Venetian Blind Machine Operator Name Role Phone Lilian Ochoa APRN Primary Care Provider [phone] Amrita Jose APRN Primary Care Provider [phone]- [phone] Encounter Details Date Type Department Care Team (Late Contact Info) Description 01/02/2025 Orders Only External Location [address] [place] [address] Provider, External Social History Tobacco Use Types [...] Description 04/21/2025 8:00 AM EDT Procedure Visit [facility] Interventional Pain Medicine [address] [place] [address] Boyd Christian MD [address] [facility] [address] [place] [address] 05/02/2025 3:10 PM EST Office Visit Medical Office Building Surgery Spine & Joint [address] [facility], [address] [place] [address] Surya Zeng MD [address] [facility] [address] [place] [address] documented as of this encounter Procedures Procedure Name Priority Date/Time Associated Diagnosis Comments MR MSK OUTSIDE IMAGES 01/02/2025 8:40 AM EDT documented in this encounter Results * MR MSK OUTSIDE IMAGES (01/02/2025 8:40 AM EDT) Anatomical Region Laterality Modality Magnetic Resonan ce 01/02/2025 8:40 AM EDT us External Provider IMG MRI PROCEDURES Edited Resu lt - Final documented in this encounter Visit Diagnoses Not on filedocumented in this encounter Care Teams Venetian Blind Machine Operator Relationship Specialty Start Date End Date Lilian Ochoa APRN [facility] [place] [address] PCP - General 11/02/20 03/14/25 Amrita Jose APRN [address] [place] [address] PCP - General 03/15/25 documented as of this encounter
== END 2025-04-13 23:59 | disposition home or self-care (01) ==
LOC: RAD 09:17
PROVIDERS: PCP Nurse Practitioner Family; Visit Provider Student in an Organized Health Care Education/Training Program
DX: R05.9 Cough, unspecified (principal); R06.2 Wheezing
CPT/HCPCS: 71046